=== PATIENT | male | born 1950 | race Caucasian/White ===

== ENCOUNTER 2021-02-10 18:46 | Inpatient (IN) | payer MEDICARE ==
[~2021-02-10] VITALS: Ht 180.3 cm; Wt 93.5 kg
[~2021-02-10 18:46] MED LIST: atropine 0.1mg/ml 10ml syringe ONE; etomidate 2mg/ml inj. ONE; rocuronium 10mg/ml inj IV ONE; sod chloride 0.9% 10ml flush syringe IV ONE
[2021-02-10] MEDS ORDERED: dexamethasone sod phosphate 10mg/ml inj IV STA (19:12)
[2021-02-10] MEDS ORDERED: dexamethasone 6 MG in NS 50ml IV soln IV ONE (19:25)
[2021-02-10 19:52] LABS: BASOPHILS # (AUTO) 0.1 X10'3 (0-0.2); BASOPHILS % (AUTO) 1.8 % (0-1); EOSINOPHILS % (AUTO) 0 % (0-6); HEMATOCRIT 40.4 % (42.0-52.0); HEMOGLOBIN 13.6 g/dl (14.0-17.9); LYMPHOCYTES # (AUTO) 0.3 X10'3 (1.1-4.8); LYMPHOCYTES % (AUTO) 8.1 % (21-51); MEAN CORPUSCULAR HEMOGLOBIN 27.5 PG (27.0-31.0); MEAN CORPUSCULAR HGB CONC 33.6 g/dL (33.0-36.5); MEAN CORPUSCULAR VOLUME 81.8 FL (78-98); MEAN PLATELET VOLUME 7.7 FL (7.4-10.4); MONOCYTES # (AUTO) 0.3 X10'3 (0-0.9); MONOCYTES % (AUTO) 6.1 % (2-12); NEUTROPHILS # (AUTO) 3.5 X10'3 (1.8-7.7); PLATELET COUNT 160 X10'3 (140-440); RED BLOOD COUNT 4.94 X10'6 (4.70-6.10); RED CELL DISTRIBUTION WIDTH 14.8 % (11.5-14.5); WHITE BLOOD COUNT 4.2 X10'3 (4.5-11.0)
--- NOTE | 2021-02-10 20:00 | NUR ---
Pt lying on stretcher with no complaints voiced or reported. remains at bedside.
[2021-02-10 20:09] LABS: ALANINE AMINOTRANSFERASE 47 U/L (12-78); ALBUMIN 2.8 G/DL (3.4-5.0); ALBUMIN/GLOBULIN RATIO 0.8 (1.1-1.5); ALKALINE PHOSPHATASE 63 IU/L (46-116); ANION GAP 8 (8-16); ASPARTATE AMINO TRANSFERASE 65 U/L (10-37); BILIRUBIN,TOTAL 0.4 MG/DL (0.1-1.0); BLOOD UREA NITROGEN 14 MG/DL (7-18); BUN/CREATININE RATIO 15.2 (5.4-32.0); CHLORIDE 92 MMOL/L (99-107); CREATININE 0.92 MG/DL (0.60-1.10); GLUCOSE 135 MG/DL (70-104); POTASSIUM 3.7 MMOL/L (3.5-5.1); SODIUM 127 MMOL/L (135-145); TOTAL CARBON DIOXIDE 26.8 MMOL/L (24-32); TOTAL PROTEIN 6.2 G/DL (6.4-8.2); eGFR 82 ML/MIN
[2021-02-10 20:44] LABS: C-REACTIVE PROTEIN 9.09 MG/DL (0.0-0.5); LACTATE DEHYDROGENASE 516 U/L (85-227)
[2021-02-10 20:47] LABS: FERRITIN 2056 NG/ML (26-388)
[2021-02-10] MEDS ORDERED: temazepam 15mg capsule PO PRN (21:00)
[2021-02-10] MEDS ORDERED: REMDESIVIR INJ 200 MG in normal saline 100ml IV soln 60 ML IV ONE (21:05)
[2021-02-10] MEDS ORDERED: potassium Cl 40MEQ/1/2NS 520ml 520 ML IV PRN ×2 (23:10)
[2021-02-10] MEDS ORDERED: ondansetron/PF 4mg/2ml inj IV PRN (23:10)
[2021-02-10] MEDS ORDERED: acetaminophen 325mg tablet PO PRN ×2 (23:10)
[2021-02-10] MEDS ORDERED: potassium Cl 20 mEq SR tablet PO PRN ×2 (23:10)
[2021-02-10] MEDS ORDERED: morphine 2 MG/ML inj. syringe IV PRN (23:10)
[2021-02-10] MEDS ORDERED: mag hydrox/Alum hydrox/simeth 30ml oral suspension PO PRN (23:10)
[2021-02-10] MEDS ORDERED: HYDROcodone/acetaminophen 5mg/325mg tablet PO PRN (23:10)
[2021-02-10] MEDS ORDERED: magnesium 2GM in 50ml NS 50 ML IV PRN (23:10)
[2021-02-10] MEDS ORDERED: magnesium Cl slow-release 64mg tablet PO PRN (23:10)
[2021-02-10] MEDS ORDERED: magnesium hydroxide 30ml (MOM) UD suspension PO PRN (23:10)
[2021-02-10] MEDS: normal saline 1000ml 1,000 ML IV SCH (23:10)
[2021-02-10] MEDS ORDERED: magnesium 4gm in 100ml NS 100 ML IV PRN (23:10)
[2021-02-10] MEDS ORDERED: iohexol 350MG/ML 100ml bottle IV ONE (23:21)
--- NOTE | 2021-02-11 02:30 | NUR ---
Pt upset about the alarm on his IV pump making noise. Pt then took off all monitor leads, including SaO2 monitor. Pt found to have scooted his bed all the way to the door and had it open, even though he was covid +. Pt placed back in bed and high flow O2 placed back on pt.
--- NOTE | 2021-02-11 05:18 | NUR ---
Pt sleeping with no complaints voiced or reported.
[2021-02-11] MEDS ORDERED: LOSA1TAB41 PO (05:35)
--- NOTE | 2021-02-11 07:00 | NUR ---
pt refused to wear hospital gown. wants to stay in his clothes.
[2021-02-11] MEDS: REMDESIVIR INJ 100 MG in normal saline 100ml IV soln 80 ML IV SCH (07:17)
[2021-02-11] MEDS: K and/or MAG REPLACEMENT MC SCH ×2 (07:18→18:49)
[2021-02-11] MEDS ORDERED: REMDESIVIR INJ 100 MG in normal saline 100ml IV soln 80 ML IV SCH (08:00)
[2021-02-11] MEDS ORDERED: heparin, porcine 5000 units/ml vial SQ SCH (08:00)
[2021-02-11] MEDS ORDERED: dexamethasone 4mg/ml inj IM SCH (08:00)
[2021-02-11] MEDS ORDERED: CefTRIAXone 2gm/D5W 50ml BAG 50 ML IV SCH (08:00)
[2021-02-11 08:55] LABS: BASOPHILS % (AUTO) 0.2 % (0-1); EOSINOPHILS % (AUTO) 0 % (0-6); HEMATOCRIT 42.3 % (42.0-52.0); HEMOGLOBIN 14.2 g/dl (14.0-17.9); LYMPHOCYTES # (AUTO) 0.5 X10'3 (1.1-4.8); LYMPHOCYTES % (AUTO) 12.2 % (21-51); MEAN CORPUSCULAR HEMOGLOBIN 27.1 PG (27.0-31.0); MEAN CORPUSCULAR HGB CONC 33.6 g/dL (33.0-36.5); MEAN CORPUSCULAR VOLUME 80.6 FL (78-98); MEAN PLATELET VOLUME 7.8 FL (7.4-10.4); MONOCYTES # (AUTO) 0.4 X10'3 (0-0.9); MONOCYTES % (AUTO) 10.1 % (2-12); NEUTROPHILS # (AUTO) 3.2 X10'3 (1.8-7.7); NEUTROPHILS % (AUTO) 77.5 % (42-75); PLATELET COUNT 172 X10'3 (140-440); RED BLOOD COUNT 5.24 X10'6 (4.70-6.10); RED CELL DISTRIBUTION WIDTH 14.5 % (11.5-14.5); WHITE BLOOD COUNT 4.1 X10'3 (4.5-11.0)
[2021-02-11 08:56] LABS: ALBUMIN 2.8 G/DL (3.4-5.0); ANION GAP 7 (8-16); BLOOD UREA NITROGEN 13 MG/DL (7-18); BUN/CREATININE RATIO 16.3 (5.4-32.0); CALCIUM 7.3 MG/DL (8.5-10.1); CHLORIDE 92 MMOL/L (99-107); GLUCOSE 121 MG/DL (70-104); POTASSIUM 3.8 MMOL/L (3.5-5.1); SODIUM 129 MMOL/L (135-145); TOTAL CARBON DIOXIDE 29.7 MMOL/L (24-32); eGFR > 90 ML/MIN
[2021-02-11] MEDS: enoxaparin 40mg/0.4ml syringe SUBCUT SCH ×2 (09:35→20:11)
[2021-02-11] MEDS: dexamethasone inj 6 MG in normal saline 50ml IV soln 50 ML IV SCH ×2 (09:35→20:11)
--- NOTE | 2021-02-11 10:02 | NUR ---
pt placed on hospital bed. spo2 dropped to 70 during transfer. educated about breathing and increased to 88% over 5 min.
--- NOTE | 2021-02-11 12:41 | NUR ---
attempted to call report. no answer. ed charge notified.
--- NOTE | 2021-02-11 12:55 | NUR ---
attempted to call report, rn unable to get report will call back.
[2021-02-11 14:00] VITALS: BP 144/83
--- NOTE | 2021-02-11 14:53 | NUR ---
Patient's O2 sat dropped as low as 78% on high flow nasal cannula @ 15lpm plus the non-rebreather mask on top of it. Charge nurse Barrie aware of this. Patient was urinating and pulled his pants out when the O2 sat started dropping. RT was notified. RT encouraged patient to do deep breathing. Instructed patient to rest to minimize shortness of breath.
--- NOTE | 2021-02-11 14:57 | NUR ---
Unable to dart, nasal swab, or skin check patient since he got to his room due to shortness of breath
[2021-02-11 15:00] VITALS: BP 146/85
--- NOTE | 2021-02-11 15:01 | NUR ---
Paged Dr. Zhou PAGER ID: [phone] MESSAGE: Covid Unit Kira DICK ext [phone]. RE: Jonathon Rae. Patient O2 sat kept dropping to <80% even on minimal exertion. He is currently @ 15lpm high flow + non-rebreather. RT requesting order for BIPAP as he keep dropping O2 sat.
--- NOTE | 2021-02-11 17:53 | NUR ---
Paged Dr. Zhou PAGER ID: [phone] MESSAGE: Marni Malone RN ext [phone]. RE: Jonathon Rae. Can we get order for Ativan IV for this patient. He's been anxious with the BIPAP/CPAP machine and he is not ready to be off machine yet.
[2021-02-11] MEDS ORDERED: LORazepam 2 mg/ml vial IV PRN (17:55)
[2021-02-11 18:00] VITALS: BP 146/85
[2021-02-11 18:00] LABS: ABG BASE EXCESS 1.3 mmol/L (-2.0-2.0); ABG HCO3 24.5 mmol/L (22.0-26.0); ABG OXYGEN SATURATION 94.9 % (94-97); ABG PCO2 (T) 34.6 mmHg (35.0-48.0); ABG PO2 (T) 70.4 mmHg (75.0-100.0); ALLEN'S TEST POSITIVE; FCOHb 0.2 % (0.0-3.9); FMetHb 0.1 % (0.0-1.5); FO2Hb 94.6 % (94-97); RESPIRATORY RATE 16 b/min; TIDAL VOLUME 645 mL; TOTAL HEMOGLOBIN 14.8 G/dl (14.0-18.0)
--- NOTE | 2021-02-11 18:00 | NUR ---
Patient in room COVID 02. I have received report from eddie mendoza and had the opportunity to ask questions and assume patient care.
--- NOTE | 2021-02-11 18:06 | NUR ---
Patient refusing Ativan at this time. I explained to him it will help him relax also might help with breathing better. Patient wanted to be off from BIPAP while eating, patient was advised not to be off BIPAP?CPAP machine at this time until his O2 sat is more stable. Per RT, patient not ready to be off BIPAP yet at this time
--- NOTE | 2021-02-11 18:34 | NUR ---
Problems reprioritized. Patient report given, questions answered & plan of care reviewed with Valentina DICK.
[2021-02-12 02:00] VITALS: BP 156/81
--- NOTE | 2021-02-12 03:06 | NUR ---
lab reports blood cultures came back pos. for grampos rods aerobic at IV start. MD Yap notified. no new orders at the time. patient is not currently taking abx at the time. states that she will investigate and call kat
[2021-02-12] MEDS ORDERED: levoFLOXACIN-Levaquin 500mg/D5 100 ML IV ONE (03:40)
[2021-02-12 07:00] VITALS: BP 136/79
--- NOTE | 2021-02-12 07:03 | NUR ---
Patient in room COVID 02. I have received report from MAYELIN PACHECO, and had the opportunity to ask questions and assume patient care.
[2021-02-12] MEDS: K and/or MAG REPLACEMENT MC SCH ×2 (08:00→20:00)
[2021-02-12 08:28] LABS: BASOPHILS % (AUTO) 0.1 % (0-1); EOSINOPHILS % (AUTO) 0 % (0-6); HEMATOCRIT 41.5 % (42.0-52.0); HEMOGLOBIN 13.8 g/dl (14.0-17.9); LYMPHOCYTES # (AUTO) 0.7 X10'3 (1.1-4.8); LYMPHOCYTES % (AUTO) 12.4 % (21-51); MEAN CORPUSCULAR HEMOGLOBIN 27.4 PG (27.0-31.0); MEAN CORPUSCULAR HGB CONC 33.2 g/dL (33.0-36.5); MEAN CORPUSCULAR VOLUME 82.5 FL (78-98); MEAN PLATELET VOLUME 7.8 FL (7.4-10.4); MONOCYTES # (AUTO) 0.7 X10'3 (0-0.9); MONOCYTES % (AUTO) 12.1 % (2-12); NEUTROPHILS # (AUTO) 4.3 X10'3 (1.8-7.7); NEUTROPHILS % (AUTO) 75.4 % (42-75); PLATELET COUNT 204 X10'3 (140-440); RED BLOOD COUNT 5.04 X10'6 (4.70-6.10); RED CELL DISTRIBUTION WIDTH 14.7 % (11.5-14.5); WHITE BLOOD COUNT 5.7 X10'3 (4.5-11.0)
[2021-02-12 09:33] LABS: ALBUMIN 2.6 G/DL (3.4-5.0); ANION GAP 8 (8-16); BLOOD UREA NITROGEN 21 MG/DL (7-18); BUN/CREATININE RATIO 24.7 (5.4-32.0); CALCIUM 7.5 MG/DL (8.5-10.1); CHLORIDE 98 MMOL/L (99-107); CREATININE 0.85 MG/DL (0.60-1.10); GLUCOSE 137 MG/DL (70-104); MAGNESIUM 2.4 MG/DL (1.5-2.4); POTASSIUM 4.1 MMOL/L (3.5-5.1); SODIUM 134 MMOL/L (135-145); TOTAL CARBON DIOXIDE 28.3 MMOL/L (24-32); eGFR 90 ML/MIN
[2021-02-12 09:39] LABS: C-REACTIVE PROTEIN 6.68 MG/DL (0.0-0.5)
[2021-02-12] MEDS: dexamethasone inj 6 MG in normal saline 50ml IV soln 50 ML IV SCH (09:44)
[2021-02-12] MEDS: REMDESIVIR INJ 100 MG in normal saline 100ml IV soln 80 ML IV SCH (09:45)
[2021-02-12] MEDS: enoxaparin 40mg/0.4ml syringe SUBCUT SCH ×2 (09:45→19:43)
[2021-02-12 11:00] VITALS: BP 142/83
[2021-02-12 15:00] VITALS: BP 132/79
[2021-02-12] MEDS: methylPREDNISolone sod succ/PF 40mg inj. IV SCH (16:16)
[2021-02-12 18:00] VITALS: BP 163/88
--- NOTE | 2021-02-12 18:00 | NUR ---
Patient in room COVID 02. I have received report from ronni mendoza and had the opportunity to ask questions and assume patient care.
--- NOTE | 2021-02-12 18:30 | NUR ---
Problems reprioritized. Patient report given, questions answered & plan of care reviewed with MAYELIN PACHECO.
[2021-02-12 22:00] VITALS: BP 160/87
[2021-02-12] MEDS: normal saline 1000ml 1,000 ML IV SCH (23:40)
[2021-02-13] VITALS (14 sets, daily range): BP systolic 111–169; BP diastolic 67–98
[2021-02-13] MEDS: methylPREDNISolone sod succ/PF 40mg inj. IV SCH ×4 (00:57→23:42)
--- NOTE | 2021-02-13 06:47 | NUR ---
Patient in room COVID 02. I have received report from Nanette Neal and had the opportunity to ask questions and assume patient care.
--- NOTE | 2021-02-13 07:17 | NUR ---
MD Zhou PAGER ID: [phone] MESSAGE: Ever DICK Covid unit. ext [phone] pt [facility] room 2B. On Bipap 100% fio2. Sat's drop to 90% with mask on if patient speaks
[2021-02-13] MEDS: REMDESIVIR INJ 100 MG in normal saline 100ml IV soln 80 ML IV SCH (07:42)
[2021-02-13] MEDS: enoxaparin 40mg/0.4ml syringe SUBCUT SCH ×2 (07:42→19:35)
[2021-02-13] MEDS: K and/or MAG REPLACEMENT MC SCH ×2 (08:00→20:00)
[2021-02-13 08:16] LABS: BASOPHILS % (AUTO) 0.1 % (0-1); EOSINOPHILS % (AUTO) 0 % (0-6); HEMATOCRIT 41.9 % (42.0-52.0); HEMOGLOBIN 13.9 g/dl (14.0-17.9); LYMPHOCYTES # (AUTO) 0.4 X10'3 (1.1-4.8); LYMPHOCYTES % (AUTO) 5.1 % (21-51); MEAN CORPUSCULAR HEMOGLOBIN 27.1 PG (27.0-31.0); MEAN CORPUSCULAR HGB CONC 33.2 g/dL (33.0-36.5); MEAN CORPUSCULAR VOLUME 81.5 FL (78-98); MEAN PLATELET VOLUME 7.5 FL (7.4-10.4); MONOCYTES # (AUTO) 0.9 X10'3 (0-0.9); MONOCYTES % (AUTO) 10.9 % (2-12); NEUTROPHILS # (AUTO) 7.1 X10'3 (1.8-7.7); NEUTROPHILS % (AUTO) 83.9 % (42-75); PLATELET COUNT 284 X10'3 (140-440); RED BLOOD COUNT 5.14 X10'6 (4.70-6.10); RED CELL DISTRIBUTION WIDTH 14.7 % (11.5-14.5); WHITE BLOOD COUNT 8.5 X10'3 (4.5-11.0)
[2021-02-13 08:18] LABS: D-DIMER 0.72 MG/L FEU (0-0.50)
[2021-02-13 08:23] LABS: ALBUMIN 2.6 G/DL (3.4-5.0); ANION GAP 6 (8-16); BLOOD UREA NITROGEN 22 MG/DL (7-18); BUN/CREATININE RATIO 25.9 (5.4-32.0); C-REACTIVE PROTEIN 3.45 MG/DL (0.0-0.5); CALCIUM 7.3 MG/DL (8.5-10.1); CHLORIDE 102 MMOL/L (99-107); CREATININE 0.85 MG/DL (0.60-1.10); GLUCOSE 163 MG/DL (70-104); MAGNESIUM 2.7 MG/DL (1.5-2.4); POTASSIUM 4.4 MMOL/L (3.5-5.1); SODIUM 137 MMOL/L (135-145); TOTAL CARBON DIOXIDE 29.1 MMOL/L (24-32); eGFR 90 ML/MIN
--- NOTE | 2021-02-13 12:17 | NUR ---
Rt notified this jingle writer pt developing chest edema, and decrepitus. MD Zhou on floor at this time examined patient. Verbal order for stat CXR 2 view given and to transfer patient to ICU. Charge notified. brake repair supervisor notified.
--- NOTE | 2021-02-13 12:49 | NUR ---
AGER ID: [phone] MESSAGE: COVID 2B will be transferred to 2005. Thank you. Lottie [phone]
--- NOTE | 2021-02-13 12:54 | NUR ---
Problems reprioritized. Patient report given, questions answered & plan of care reviewed with Lakisha Neal.
--- NOTE | 2021-02-13 13:33 | NUR ---
Pt family called and updated per pt request. Taz alonsoer.
[2021-02-13] MEDS ORDERED: magnesium hydroxide 30ml (MOM) UD suspension PO PRN (13:55)
[2021-02-13] MEDS ORDERED: albuterol 2.5 MG/3 ML nebule NEB PRN (13:55)
[2021-02-13] MEDS ORDERED: ondansetron/PF 4mg/2ml inj IV PRN (13:55)
[2021-02-13] MEDS ORDERED: acetaminophen 325mg tablet PO PRN ×2 (13:55)
[2021-02-13] MEDS ORDERED: LIDOcaine 2% 10ml TOPICAL JELLY (Urojet) TP ONE (13:55)
[2021-02-13] MEDS ORDERED: morphine 2 MG/ML inj. syringe IV PRN (13:55)
[2021-02-13] MEDS ORDERED: morphine 4 MG/ML inj SYRINge IV PRN (13:55)
--- NOTE | 2021-02-13 14:24 | NUR ---
Took phone call from Nakia Longoria who stated pt. has 1cm pneumothorax at mediastinum as well as subcutaneous air on CXR. Results called to Dr. Belle who stated he was aware and to keep CT set up near room.
[2021-02-13] MEDS: normal saline 1000ml 1,000 ML IV SCH ×2 (14:28→19:35)
[2021-02-13 14:46] LABS: D-DIMER 0.98 MG/L FEU (0-0.50)
[2021-02-13 15:37] LABS: ABG BASE EXCESS 2.5 mmol/L (-2.0-2.0); ABG HCO3 26.5 mmol/L (22.0-26.0); ABG OXYGEN SATURATION 98.8 % (94-97); ABG PCO2 (T) 38.9 mmHg (35.0-48.0); ABG PO2 (T) 151.8 mmHg (75.0-100.0); ALLEN'S TEST POSITIVE; FCOHb 0.3 % (0.0-3.9); FMetHb 0.4 % (0.0-1.5); FO2Hb 98.1 % (94-97); RESPIRATORY RATE 16 b/min; TOTAL HEMOGLOBIN 14.7 G/dl (14.0-18.0)
[2021-02-13] MEDS: dexmedetomidin/NS 400mcg/100ml 100 ML IV SCH ×2 (16:31→22:07)
--- NOTE | 2021-02-13 17:00 | NUR ---
Received patient from the COVID unit. Patient on BiPAP at 95% FiO2. Pressure support decreased from 20 to 15. Resp rate in 40's. Breath sounds diminished bilat. Large amount of crepitus in upper chest. Patient states he is really tired. Initial CXR showed 1 cm pneumothorax. Repeat CXR @ 1700 showed pneumo had decreased to a trace. Patient given Morphine for chest pain and air hunger. Started on Precedex for anxiety. Patient assisted into prone position with sats immediately increasing into 90's. Able to wean FiO2 to 70%.
--- NOTE | 2021-02-13 18:26 | NUR ---
Problems reprioritized. Patient report given, questions answered & plan of care reviewed with Laila DICK.
--- NOTE | 2021-02-13 18:30 | NUR ---
Patient in room CICU 2005. I have received report from MAYELIN Banuelos and had the opportunity to ask questions and assume patient care. Patient is laying on right side sleeping comfortably, Bipap is in use and I will continue to monitor.
[2021-02-14] VITALS (24 sets, daily range): BP systolic 114–171; BP diastolic 44–89
[2021-02-14] MEDS: normal saline 1000ml 1,000 ML IV SCH (04:18)
[2021-02-14 06:15] LABS: BASOPHILS % (AUTO) 0.1 % (0-1); EOSINOPHILS % (AUTO) 0 % (0-6); HEMOGLOBIN 14.2 g/dl (14.0-17.9); LYMPHOCYTES # (AUTO) 0.4 X10'3 (1.1-4.8); MEAN CORPUSCULAR HEMOGLOBIN 27.1 PG (27.0-31.0); MEAN CORPUSCULAR VOLUME 82.1 FL (78-98); MEAN PLATELET VOLUME 7.4 FL (7.4-10.4); MONOCYTES # (AUTO) 1.1 X10'3 (0-0.9); MONOCYTES % (AUTO) 8.3 % (2-12); NEUTROPHILS # (AUTO) 11.6 X10'3 (1.8-7.7); NEUTROPHILS % (AUTO) 88.6 % (42-75); PLATELET COUNT 260 X10'3 (140-440); RED BLOOD COUNT 5.24 X10'6 (4.70-6.10); RED CELL DISTRIBUTION WIDTH 14.9 % (11.5-14.5)
--- NOTE | 2021-02-14 06:15 | NUR ---
Patient in room CICU 2006. I have received report from Laila DICK and had the opportunity to ask questions and assume patient care.
--- NOTE | 2021-02-14 06:21 | NUR ---
Problems reprioritized. Patient report given, questions answered & plan of care reviewed with Tina/MAYELIN Hernandez.
[2021-02-14 06:26] LABS: ALANINE AMINOTRANSFERASE 178 U/L (12-78); ALBUMIN 2.6 G/DL (3.4-5.0); ALBUMIN/GLOBULIN RATIO 0.8 (1.1-1.5); ALKALINE PHOSPHATASE 126 IU/L (46-116); ANION GAP 6 (8-16); ASPARTATE AMINO TRANSFERASE 111 U/L (10-37); BLOOD UREA NITROGEN 22 MG/DL (7-18); BUN/CREATININE RATIO 28.9 (5.4-32.0); C-REACTIVE PROTEIN 2.36 MG/DL (0.0-0.5); CALCIUM 7.2 MG/DL (8.5-10.1); CHLORIDE 107 MMOL/L (99-107); CREATININE 0.76 MG/DL (0.60-1.10); GLUCOSE 171 MG/DL (70-104); MAGNESIUM 3.1 MG/DL (1.5-2.4); POTASSIUM 4.7 MMOL/L (3.5-5.1); SODIUM 140 MMOL/L (135-145); TOTAL PROTEIN 5.8 G/DL (6.4-8.2); eGFR > 90 ML/MIN
[2021-02-14 06:28] LABS: D-DIMER 7.09 MG/L FEU (0-0.50); PARTIAL THROMBOPLASTIN TIME 26 SECONDS (22-32)
[2021-02-14] MEDS: K and/or MAG REPLACEMENT MC SCH ×2 (06:56→20:00)
[2021-02-14] MEDS: REMDESIVIR INJ 100 MG in normal saline 100ml IV soln 80 ML IV SCH (07:44)
[2021-02-14] MEDS: methylPREDNISolone sod succ/PF 40mg inj. IV SCH ×3 (07:45→23:42)
[2021-02-14] MEDS: enoxaparin 40mg/0.4ml syringe SUBCUT SCH (07:45)
--- NOTE | 2021-02-14 09:15 | NUR ---
Fam Call called, update provided. She asked me to tell him to mind his Ps & Qs and that she loved him. Message delivered.
--- NOTE | 2021-02-14 10:32 | NUR ---
Resp Status: Cxray taken around 0900 & pt moved up in bed. He desats to low 80s on 100% FiO2 and takes 5-10 mins to recover back to mid 90s. 0945 pt complained of abd pain at upper lt quad. Repositioned and pain abated. Precedex restarted with increased agitation. Sats improved once pt settles. 1015 requested to reposition to Lt side with same desat issue and slow improvement.
[2021-02-14] MEDS: pantoprazole 40 MG vial IV SCH (10:47)
[2021-02-14] MEDS ORDERED: sodium phosphate inj. 30 MMOL in dextrose 5%-water 250 ML IV PRN (10:50)
[2021-02-14] MEDS ORDERED: magnesium 4gm in 100ml NS 100 ML IV PRN (10:50)
[2021-02-14] MEDS ORDERED: sodium phosphate inj. 15 MMOL in dextrose 5%-water 250 ML IV PRN (10:50)
[2021-02-14] MEDS ORDERED: magnesium Cl slow-release 64mg tablet PO PRN (10:50)
[2021-02-14] MEDS ORDERED: bisacodyl 10mg suppository rectal RC ONE (10:50)
[2021-02-14] MEDS ORDERED: Neutra Phos packet PO PRN (10:50)
[2021-02-14] MEDS ORDERED: potassium Cl 40MEQ/1/2NS 520ml 520 ML IV PRN ×2 (10:50)
[2021-02-14] MEDS ORDERED: magnesium 2GM in 50ml NS 50 ML IV PRN (10:50)
[2021-02-14] MEDS ORDERED: potassium Cl 20 mEq SR tablet PO PRN ×2 (10:50)
--- NOTE | 2021-02-14 11:17 | NUR ---
TPN Consult: Pt admit DX COVID-19 PNA, L pneumothorax, and subcutaneous emphysema currently NPO bipap dependent w/ TPN to start today per dental chair assembler. TPN recs below given pt needs; pending central access line placement at this time. Pt no BM since admit at least 4 days w/ bowel care via rectum to start today per dental chair assembler. Will monitor for PN tolerance and adjustment needs as medically indicated. Rec: 1. TPN via central access per MD using 2:1 Clinimix E 5/15 at 105ml/hr goal w/ separate 250ml 20% intralipids to run for 12 hours daily at 20.83ml/hr. In total; to provide 2520ml volume, 126g AA, 378g DEX (2.92mg/kg/min), 50g lipids, and 2319 total kcals. Initiate at 30ml/hr and if tolerated Q12H advance to goal. 2. PALB/TG Q /; daily wts 3. monitor for PN tolerance, signs of refeeding, and PN adjustment needs 4. IF respiratory status improves consider EN to meet nutrition needs given recent poor PO hx prior to NPO status 5. IF PO diet advances; advance as medically indicated to regular Addendum: 02/14/21 at [address] Amended: Links added.
[2021-02-14 11:24] LABS: TRIGLYCERIDES 111 MG/DL (20-135)
[2021-02-14] MEDS: dexmedetomidin/NS 400mcg/100ml 100 ML IV SCH (13:06)
[2021-02-14] MEDS ORDERED: Dextrose 10%-water IV solution 1,000 ML IV PRN (13:35)
[2021-02-14] MEDS ORDERED: MVI, adult No.4 with vit. K 5 ML, ZINC/COPPER/MANGANESE/SELENIUM 0.5 ML, chromic chlori... IV SCH ×4 (16:00)
--- NOTE | 2021-02-14 17:50 | NUR ---
Shift Note Pleasant pt who tolerates BiPAP well. better turned to his Lt than Right. BM x 2 today post suppository. PICC line completed about 1730. Still awaiting TPN, pharm aware. Pt able to move about in bed w/out assistance.
--- NOTE | 2021-02-14 18:16 | NUR ---
Problems reprioritized. Patient report given, questions answered & plan of care reviewed with Laila DICK.
--- NOTE | 2021-02-14 18:17 | NUR ---
Patient in room CICU 2005. I have received report from David/MAYELIN Wilder and had the opportunity to ask questions and assume patient care. Patient still on Bipap 95%, he resting comfortably and laying on left side.
[2021-02-14] MEDS: enoxaparin 80mg/0.8ml syringe SUBCUT SCH (19:29)
[2021-02-14] MEDS ORDERED: fat emulsion IV bag 250 ML IV SCH (20:00)
[2021-02-14] MEDS ORDERED: lactobacillus rhamnosus 10,000 MMU CELLS/CAPSULE PO SCH (20:00)
[2021-02-15] VITALS (24 sets, daily range): BP systolic 110–202; BP diastolic 54–107
[2021-02-15] MEDS: dexmedetomidin/NS 400mcg/100ml 100 ML IV SCH (00:06)
[2021-02-15 05:55] LABS: BASOPHILS % (AUTO) 0.1 % (0-1); EOSINOPHILS % (AUTO) 0.1 % (0-6); HEMATOCRIT 41.8 % (42.0-52.0); HEMOGLOBIN 13.4 g/dl (14.0-17.9); LYMPHOCYTES # (AUTO) 0.2 X10'3 (1.1-4.8); LYMPHOCYTES % (AUTO) 1.3 % (21-51); MEAN CORPUSCULAR HEMOGLOBIN 26.7 PG (27.0-31.0); MEAN CORPUSCULAR VOLUME 83.3 FL (78-98); MEAN PLATELET VOLUME 7.7 FL (7.4-10.4); MONOCYTES % (AUTO) 5.6 % (2-12); NEUTROPHILS # (AUTO) 16.7 X10'3 (1.8-7.7); NEUTROPHILS % (AUTO) 92.9 % (42-75); PLATELET COUNT 205 X10'3 (140-440); RED BLOOD COUNT 5.02 X10'6 (4.70-6.10); RED CELL DISTRIBUTION WIDTH 15.3 % (11.5-14.5); WHITE BLOOD COUNT 17.9 X10'3 (4.5-11.0)
[2021-02-15 06:10] LABS: D-DIMER 20.02 MG/L FEU (0-0.50); PARTIAL THROMBOPLASTIN TIME 28 SECONDS (22-32)
--- NOTE | 2021-02-15 06:11 | NUR ---
Problems reprioritized. Patient report given, questions answered & plan of care reviewed with Tina/MAYELIN Hernandez.
[2021-02-15 06:12] LABS: ALANINE AMINOTRANSFERASE 167 U/L (12-78); ALBUMIN 2.4 G/DL (3.4-5.0); ALBUMIN/GLOBULIN RATIO 0.8 (1.1-1.5); ALKALINE PHOSPHATASE 177 IU/L (46-116); ANION GAP 6 (8-16); ASPARTATE AMINO TRANSFERASE 79 U/L (10-37); BILIRUBIN,TOTAL 0.9 MG/DL (0.1-1.0); BLOOD UREA NITROGEN 21 MG/DL (7-18); BUN/CREATININE RATIO 24.7 (5.4-32.0); C-REACTIVE PROTEIN 4.93 MG/DL (0.0-0.5); CALCIUM 6.8 MG/DL (8.5-10.1); CHLORIDE 111 MMOL/L (99-107); CREATININE 0.85 MG/DL (0.60-1.10); GLUCOSE 179 MG/DL (70-104); MAGNESIUM 2.9 MG/DL (1.5-2.4); PHOSPHORUS 2.2 MG/DL (2.3-4.5); POTASSIUM 4.5 MMOL/L (3.5-5.1); SODIUM 145 MMOL/L (135-145); TOTAL CARBON DIOXIDE 27.7 MMOL/L (24-32); TOTAL PROTEIN 5.4 G/DL (6.4-8.2); eGFR 90 ML/MIN
[2021-02-15 07:10] LABS: ABG BASE EXCESS 1.6 mmol/L (-2.0-2.0); ABG HCO3 27.2 mmol/L (22.0-26.0); ABG OXYGEN SATURATION 97.8 % (94-97); ABG PCO2 (T) 47.1 mmHg (35.0-48.0); ABG PO2 (T) 111.5 mmHg (75.0-100.0); ALLEN'S TEST POSITIVE; FCOHb 0.1 % (0.0-3.9); FMetHb 0.3 % (0.0-1.5); FO2Hb 97.4 % (94-97); PATIENT TEMPERATURE 37.3; RESPIRATORY RATE 16 b/min; TIDAL VOLUME 1047 mL; TOTAL HEMOGLOBIN 13.9 G/dl (14.0-18.0)
[2021-02-15] MEDS: K and/or MAG REPLACEMENT MC SCH ×2 (08:00→20:00)
[2021-02-15] MEDS: methylPREDNISolone sod succ/PF 40mg inj. IV SCH ×2 (08:09→16:13)
[2021-02-15] MEDS: enoxaparin 80mg/0.8ml syringe SUBCUT SCH ×2 (08:09→20:31)
[2021-02-15] MEDS: pantoprazole 40 MG vial IV SCH (08:09)
[2021-02-15] MEDS ORDERED: ipratropium 0.5 MG/2.5ML nebule IH PRN (09:00)
[2021-02-15] MEDS ORDERED: HYDROmorphone 1 mg/ml syringe SQ ONE (10:00)
[2021-02-15] MEDS ORDERED: HYDROmorphone 1 mg/ml syringe IV ONE (10:03)
[2021-02-15] MEDS ORDERED: fentaNYL/PF 50MCG/1 ML 2ML syringe IV ONE (10:15)
[2021-02-15] MEDS ORDERED: midazolam 1 mg/ML 2ml injection ONE (10:43)
[2021-02-15] MEDS: propofol 1000mg/100ml bottle 100 ML IV SCH ×2 (10:55→16:50)
[2021-02-15 11:15] LABS: ABG BASE EXCESS -2.9 mmol/L (-2.0-2.0); ABG HCO3 25.1 mmol/L (22.0-26.0); ABG OXYGEN SATURATION 96.8 % (94-97); ABG PCO2 (T) 58.1 mmHg (35.0-48.0); ABG PO2 (T) 104.3 mmHg (75.0-100.0); ALLEN'S TEST POSITIVE; FCOHb 0.1 % (0.0-3.9); FMetHb 0.4 % (0.0-1.5); FO2Hb 96.3 % (94-97); PATIENT TEMPERATURE 37.3; PEEP 18 cm H2O; RESPIRATORY RATE 20 b/min; TIDAL VOLUME 425 mL; TOTAL HEMOGLOBIN 14.4 G/dl (14.0-18.0)
[2021-02-15 11:26] LABS: TRIGLYCERIDES 111 MG/DL (20-135)
--- NOTE | 2021-02-15 12:08 | NUR ---
CT & Intubation: Around 944 Dr. Belle said pt need Rt chest tube for pneumo. Explained procedure to pt and he signed the consent. CT placed but and pt couldn't recover O2 sats. remained >85. Pt was subsequently intubated. Post procedure I spoke to pts with update including chest tube & intubation. thanked me for the update. Stated she had no power and generator was running an in-room air purifier. She was SOB on the phone and I advise her to contact an ambulance. She stated she'd wait until her MD office called her back.
[2021-02-15] MEDS: mineral oil/petrolatum ophthal oint EACHEYE SCH ×3 (12:42→20:31)
--- NOTE | 2021-02-15 12:53 | NUR ---
TF consult: Per MD note pt with a small stable left pneumothorax and a right pneumothorax, right chest tube put in place today. Pt couldn't recover O2 sats and was subsequently intubated per glassware verifier. Noted TPN has already been discontinued, see TF recommendations below. [place] 02/14. Will continue to follow closely. Rec: 1. Continuous TF using Vital AF with goal rate of 85 mL/hr to provide 2040 mL total volume/day, 2448 kcal, 153 g protein, and 1654 mL water 2. Additional 100 mL water flush Q4H; monitor serum Na 3. Prealbumin q Sunday/; daily scaled weights 4. Monitor Propofol rate and adjust TF goal rate as appropriate 5. Routine bowel care Addendum: 02/15/21 at [address] Amended: Links added.
[2021-02-15] MEDS: DOPamine 400mg/D5W 250ml 250 ML IV SCH (13:55)
[2021-02-15] MEDS ORDERED: DOPamine 400mg/D5W 250ml 250 ML IV ONE (13:59)
[2021-02-15] MEDS: cefepime 2g/NS 100ml ADVANTAGE 100 ML IV SCH (15:30)
[2021-02-15 16:33] LABS: ABG BASE EXCESS 2.5 mmol/L (-2.0-2.0); ABG HCO3 27.4 mmol/L (22.0-26.0); ABG PCO2 (T) 43.8 mmHg (35.0-48.0); ABG PO2 (T) 176.5 mmHg (75.0-100.0); FCOHb 0.3 % (0.0-3.9); FMetHb 0.4 % (0.0-1.5); FO2Hb 98.3 % (94-97); PATIENT TEMPERATURE 37.3; PEEP 17 cm H2O; RESPIRATORY RATE 25 b/min; TIDAL VOLUME 500 mL; TOTAL HEMOGLOBIN 13.3 G/dl (14.0-18.0)
[2021-02-15] MEDS: CISatracurium besylate inj. 100 MG in normal saline 100ml IV soln 90 ML IV PRN ×2 (16:37→21:21)
[2021-02-15] MEDS: FENTANYL-0.9 % NACL/PF 100 ML IV PRN ×2 (16:39→20:32)
[2021-02-15 17:22] LABS: ALANINE AMINOTRANSFERASE 137 U/L (12-78); ALBUMIN 2.1 G/DL (3.4-5.0); ALBUMIN/GLOBULIN RATIO 0.7 (1.1-1.5); ALKALINE PHOSPHATASE 136 IU/L (46-116); ANION GAP 5 (8-16); ASPARTATE AMINO TRANSFERASE 51 U/L (10-37); BILIRUBIN,TOTAL 0.9 MG/DL (0.1-1.0); BLOOD UREA NITROGEN 24 MG/DL (7-18); CALCIUM 6.4 MG/DL (8.5-10.1); CHLORIDE 111 MMOL/L (99-107); CREATININE 0.75 MG/DL (0.60-1.10); GLUCOSE 195 MG/DL (70-104); POTASSIUM 4.7 MMOL/L (3.5-5.1); SODIUM 144 MMOL/L (135-145); TOTAL CARBON DIOXIDE 28.3 MMOL/L (24-32); eGFR > 90 ML/MIN
[2021-02-15 17:23] LABS: BASOPHILS % (AUTO) 0.1 % (0-1); EOSINOPHILS % (AUTO) 0 % (0-6); HEMOGLOBIN 12.4 g/dl (14.0-17.9); LYMPHOCYTES # (AUTO) 0.3 X10'3 (1.1-4.8); LYMPHOCYTES % (AUTO) 1.7 % (21-51); MEAN CORPUSCULAR HGB CONC 32.6 g/dL (33.0-36.5); MEAN CORPUSCULAR VOLUME 82.7 FL (78-98); MEAN PLATELET VOLUME 7.5 FL (7.4-10.4); NEUTROPHILS # (AUTO) 15.8 X10'3 (1.8-7.7); NEUTROPHILS % (AUTO) 92.2 % (42-75); PLATELET COUNT 160 X10'3 (140-440); RED BLOOD COUNT 4.59 X10'6 (4.70-6.10); RED CELL DISTRIBUTION WIDTH 15.1 % (11.5-14.5); WHITE BLOOD COUNT 17.1 X10'3 (4.5-11.0)
--- NOTE | 2021-02-15 18:21 | NUR ---
Problems reprioritized. Patient report given, questions answered & plan of care reviewed with Laila DICK.
--- NOTE | 2021-02-15 18:22 | NUR ---
Patient in room CICU 2005. I have received report from David/MAYELIN Wilder and had the opportunity to ask questions and assume patient care. Patient declined today and was intubated/sedated with right chest tube placed, I will continue to monitor.
[2021-02-15] MEDS ORDERED: insulin Lispro (HumaLOG) vial - multi-dose SQ SCH (20:45)
[2021-02-15] MEDS ORDERED: glucagon, human recombinant 1mg kit SUBCUT PRN (20:45)
[2021-02-15] MEDS ORDERED: dextrose 50%-water 50ml dispensing syringe IV PRN ×2 (20:45)
[2021-02-15] MEDS ORDERED: dextrose ORAL solution 15 GM/59 ML bottle PO PRN ×2 (20:45)
[2021-02-15] MEDS: insulin glargine (Lantus) pen - multi-dose SQ SCH (21:00)
[2021-02-16] VITALS (24 sets, daily range): BP systolic 113–180; BP diastolic 51–91
[2021-02-16] MEDS: methylPREDNISolone sod succ/PF 40mg inj. IV SCH ×3 (00:34→16:13)
[2021-02-16] MEDS: propofol 1000mg/100ml bottle 100 ML IV SCH ×3 (00:34→17:34)
[2021-02-16] MEDS: mineral oil/petrolatum ophthal oint EACHEYE SCH ×4 (02:00→20:56)
[2021-02-16] MEDS: FENTANYL-0.9 % NACL/PF 100 ML IV PRN ×3 (03:01→17:35)
[2021-02-16] MEDS: CISatracurium besylate inj. 100 MG in normal saline 100ml IV soln 90 ML IV PRN ×3 (03:01→16:14)
[2021-02-16 03:32] LABS: ABG BASE EXCESS -0.6 mmol/L (-2.0-2.0); ABG OXYGEN SATURATION 94.4 % (94-97); ABG PCO2 (T) 38.9 mmHg (35.0-48.0); ABG PO2 (T) 69.3 mmHg (75.0-100.0); FCOHb 0.1 % (0.0-3.9); FMetHb 0.1 % (0.0-1.5); FO2Hb 94.2 % (94-97); PATIENT TEMPERATURE 36.6; PEEP 12 cm H2O; RESPIRATORY RATE 25 b/min; TIDAL VOLUME 500 mL; TOTAL HEMOGLOBIN 13.3 G/dl (14.0-18.0)
[2021-02-16] MEDS: vancomycin/NS 1 GM ADD-VANTAGE 250 ML IV SCH ×2 (04:27→14:00)
[2021-02-16 04:41] LABS: BASOPHILS % (AUTO) 0.1 % (0-1); EOSINOPHILS % (AUTO) 0 % (0-6); HEMATOCRIT 38.8 % (42.0-52.0); HEMOGLOBIN 12.6 g/dl (14.0-17.9); LYMPHOCYTES # (AUTO) 0.3 X10'3 (1.1-4.8); LYMPHOCYTES % (AUTO) 2.4 % (21-51); MEAN CORPUSCULAR HEMOGLOBIN 26.9 PG (27.0-31.0); MEAN CORPUSCULAR HGB CONC 32.4 g/dL (33.0-36.5); MEAN CORPUSCULAR VOLUME 82.9 FL (78-98); MEAN PLATELET VOLUME 7.9 FL (7.4-10.4); MONOCYTES # (AUTO) 0.9 X10'3 (0-0.9); NEUTROPHILS # (AUTO) 12.2 X10'3 (1.8-7.7); NEUTROPHILS % (AUTO) 90.5 % (42-75); PLATELET COUNT 161 X10'3 (140-440); RED BLOOD COUNT 4.68 X10'6 (4.70-6.10); RED CELL DISTRIBUTION WIDTH 15.6 % (11.5-14.5); WHITE BLOOD COUNT 13.5 X10'3 (4.5-11.0)
[2021-02-16] MEDS: DOPamine 400mg/D5W 250ml 250 ML IV SCH ×2 (04:44→19:33)
[2021-02-16 04:54] LABS: D-DIMER 16.37 MG/L FEU (0-0.50); PARTIAL THROMBOPLASTIN TIME 30 SECONDS (22-32)
[2021-02-16 05:22] LABS: ALANINE AMINOTRANSFERASE 120 U/L (12-78); ALBUMIN 2.1 G/DL (3.4-5.0); ALBUMIN/GLOBULIN RATIO 0.7 (1.1-1.5); ALKALINE PHOSPHATASE 135 IU/L (46-116); ANION GAP 8 (8-16); ASPARTATE AMINO TRANSFERASE 29 U/L (10-37); BILIRUBIN,TOTAL 0.7 MG/DL (0.1-1.0); BLOOD UREA NITROGEN 25 MG/DL (7-18); BUN/CREATININE RATIO 32.9 (5.4-32.0); C-REACTIVE PROTEIN 6.36 MG/DL (0.0-0.5); CALCIUM 6.6 MG/DL (8.5-10.1); CHLORIDE 113 MMOL/L (99-107); CREATININE 0.76 MG/DL (0.60-1.10); GLUCOSE 178 MG/DL (70-104); MAGNESIUM 3.1 MG/DL (1.5-2.4); PHOSPHORUS 2.2 MG/DL (2.3-4.5); SODIUM 147 MMOL/L (135-145); TOTAL CARBON DIOXIDE 26.2 MMOL/L (24-32); TRIGLYCERIDES 138 MG/DL (20-135); eGFR > 90 ML/MIN
[2021-02-16 05:51] LABS: ABG BASE EXCESS -0.1 mmol/L (-2.0-2.0); ABG HCO3 25.8 mmol/L (22.0-26.0); ABG OXYGEN SATURATION 90.1 % (94-97); ABG PCO2 (T) 46.3 mmHg (35.0-48.0); ABG PO2 (T) 57.4 mmHg (75.0-100.0); FCOHb 0.3 % (0.0-3.9); FMetHb 0.4 % (0.0-1.5); FO2Hb 89.5 % (94-97); PATIENT TEMPERATURE 36.6; PEEP 12 cm H2O; RESPIRATORY RATE 25 b/min; TIDAL VOLUME 450 mL; TOTAL HEMOGLOBIN 13.1 G/dl (14.0-18.0)
--- NOTE | 2021-02-16 06:18 | NUR ---
Problems reprioritized. Patient report given, questions answered & plan of care reviewed with MAYELIN Hernandez.
[2021-02-16] MEDS: pantoprazole 40 MG vial IV SCH (07:54)
[2021-02-16] MEDS: cefepime 2g/NS 100ml ADVANTAGE 100 ML IV SCH ×2 (07:54→20:56)
[2021-02-16] MEDS: enoxaparin 80mg/0.8ml syringe SUBCUT SCH ×2 (07:55→20:57)
[2021-02-16] MEDS: K and/or MAG REPLACEMENT MC SCH ×2 (08:00→20:00)
[2021-02-16] MEDS: insulin regular, human U-100 3ml vial - multi-dose SQ SCH (20:48)
[2021-02-16] MEDS: insulin glargine (Lantus) pen - multi-dose SQ SCH (20:50)
[2021-02-17] VITALS (20 sets, daily range): BP systolic 107–130; BP diastolic 57–67
[2021-02-17] MEDS: propofol 1000mg/100ml bottle 100 ML IV SCH ×5 (02:11→19:48)
[2021-02-17] MEDS: FENTANYL-0.9 % NACL/PF 100 ML IV PRN ×5 (02:12→19:49)
[2021-02-17] MEDS: mineral oil/petrolatum ophthal oint EACHEYE SCH ×4 (02:13→19:49)
[2021-02-17] MEDS: CISatracurium besylate inj. 100 MG in normal saline 100ml IV soln 90 ML IV PRN ×5 (02:13→21:36)
[2021-02-17] MEDS ORDERED: VANCOMYCIN LEVEL IV ONE ×2 (02:30→14:30)
[2021-02-17 03:12] LABS: BASOPHILS % (AUTO) 0.2 % (0-1); EOSINOPHILS % (AUTO) 0 % (0-6); HEMATOCRIT 37.8 % (42.0-52.0); HEMOGLOBIN 11.9 g/dl (14.0-17.9); LYMPHOCYTES # (AUTO) 0.3 X10'3 (1.1-4.8); MEAN CORPUSCULAR HEMOGLOBIN 26.8 PG (27.0-31.0); MEAN CORPUSCULAR HGB CONC 31.6 g/dL (33.0-36.5); MEAN CORPUSCULAR VOLUME 84.9 FL (78-98); MEAN PLATELET VOLUME 8.1 FL (7.4-10.4); MONOCYTES # (AUTO) 0.7 X10'3 (0-0.9); MONOCYTES % (AUTO) 6.5 % (2-12); NEUTROPHILS # (AUTO) 10.3 X10'3 (1.8-7.7); NEUTROPHILS % (AUTO) 90.3 % (42-75); PLATELET COUNT 192 X10'3 (140-440); RED BLOOD COUNT 4.45 X10'6 (4.70-6.10); RED CELL DISTRIBUTION WIDTH 16.2 % (11.5-14.5); WHITE BLOOD COUNT 11.5 X10'3 (4.5-11.0)
[2021-02-17] MEDS: insulin regular, human U-100 3ml vial - multi-dose SQ SCH ×4 (03:22→20:18)
[2021-02-17 03:28] LABS: ALANINE AMINOTRANSFERASE 93 U/L (12-78); ALBUMIN 1.8 G/DL (3.4-5.0); ALBUMIN/GLOBULIN RATIO 0.6 (1.1-1.5); ALKALINE PHOSPHATASE 108 IU/L (46-116); ANION GAP 5 (8-16); ASPARTATE AMINO TRANSFERASE 20 U/L (10-37); BILIRUBIN,TOTAL 0.4 MG/DL (0.1-1.0); BLOOD UREA NITROGEN 31 MG/DL (7-18); BUN/CREATININE RATIO 37.3 (5.4-32.0); C-REACTIVE PROTEIN 3.24 MG/DL (0.0-0.5); CALCIUM 6.8 MG/DL (8.5-10.1); CHLORIDE 115 MMOL/L (99-107); CREATININE 0.83 MG/DL (0.60-1.10); GLUCOSE 155 MG/DL (70-104); MAGNESIUM 3.1 MG/DL (1.5-2.4); PHOSPHORUS 2.4 MG/DL (2.3-4.5); POTASSIUM 5.1 MMOL/L (3.5-5.1); PREALBUMIN 13.2 MG/DL (19-36); SODIUM 147 MMOL/L (135-145); TOTAL CARBON DIOXIDE 27.5 MMOL/L (24-32); TOTAL PROTEIN 4.7 G/DL (6.4-8.2); TRIGLYCERIDES 150 MG/DL (20-135); eGFR > 90 ML/MIN
[2021-02-17] MEDS: vancomycin/NS 1 GM ADD-VANTAGE 250 ML IV SCH (03:32)
[2021-02-17 03:35] LABS: D-DIMER 5.91 MG/L FEU (0-0.50); PARTIAL THROMBOPLASTIN TIME 29 SECONDS (22-32)
[2021-02-17 04:05] LABS: ABG BASE EXCESS -2.5 mmol/L (-2.0-2.0); ABG OXYGEN SATURATION 91.8 % (94-97); ABG PCO2 (T) 48.6 mmHg (35.0-48.0); FCOHb 0.1 % (0.0-3.9); FMetHb 0.2 % (0.0-1.5); FO2Hb 91.5 % (94-97); PATIENT TEMPERATURE 36.9; PEEP 10 cm H2O; RESPIRATORY RATE 25 b/min; TIDAL VOLUME 450 mL; TOTAL HEMOGLOBIN 12.4 G/dl (14.0-18.0)
--- NOTE | 2021-02-17 07:31 | NUR ---
vent found at 100% with peep of +12 per dayshift rn noc shift rn had increased for sat of 89% will titrate back to original settings Addendum: 02/17/21 at 0732 by Leandra Grant RT Amended: Links added.
[2021-02-17] MEDS: K and/or MAG REPLACEMENT MC SCH ×2 (08:00→19:48)
[2021-02-17] MEDS: cefepime 2g/NS 100ml ADVANTAGE 100 ML IV SCH ×2 (08:17→19:46)
[2021-02-17] MEDS: methylPREDNISolone sod succ/PF 40mg inj. IV SCH ×3 (08:17→19:46)
[2021-02-17] MEDS: pantoprazole 40 MG vial IV SCH (08:18)
[2021-02-17] MEDS: enoxaparin 80mg/0.8ml syringe SUBCUT SCH ×2 (08:22→19:47)
[2021-02-17] MEDS: DOPamine 400mg/D5W 250ml 250 ML IV SCH ×2 (10:22→18:47)
[2021-02-17] MEDS: lactobacillus rhamnosus 10,000 MMU CELLS/CAPSULE PO SCH (19:47)
[2021-02-17] MEDS: insulin glargine (Lantus) pen - multi-dose SQ SCH (20:19)
[2021-02-18] VITALS (23 sets, daily range): BP systolic 122–177; BP diastolic 53–77
[2021-02-18] MEDS: mineral oil/petrolatum ophthal oint EACHEYE SCH ×4 (01:22→20:00)
[2021-02-18 02:49] LABS: BASOPHILS % (AUTO) 0.1 % (0-1); EOSINOPHILS % (AUTO) 0 % (0-6); HEMATOCRIT 38.5 % (42.0-52.0); HEMOGLOBIN 12.6 g/dl (14.0-17.9); LYMPHOCYTES # (AUTO) 0.2 X10'3 (1.1-4.8); MEAN CORPUSCULAR HEMOGLOBIN 27.1 PG (27.0-31.0); MEAN CORPUSCULAR HGB CONC 32.6 g/dL (33.0-36.5); MEAN CORPUSCULAR VOLUME 83.2 FL (78-98); MONOCYTES # (AUTO) 0.9 X10'3 (0-0.9); MONOCYTES % (AUTO) 7.7 % (2-12); NEUTROPHILS % (AUTO) 90.2 % (42-75); PLATELET COUNT 240 X10'3 (140-440); RED BLOOD COUNT 4.63 X10'6 (4.70-6.10); RED CELL DISTRIBUTION WIDTH 16.5 % (11.5-14.5); WHITE BLOOD COUNT 12.1 X10'3 (4.5-11.0)
[2021-02-18] MEDS: insulin regular, human U-100 3ml vial - multi-dose SQ SCH ×4 (02:50→21:30)
[2021-02-18 03:11] LABS: ABG BASE EXCESS -1.4 mmol/L (-2.0-2.0); ABG HCO3 26.1 mmol/L (22.0-26.0); ABG OXYGEN SATURATION 94.4 % (94-97); ABG PCO2 (T) 56.7 mmHg (35.0-48.0); ABG PO2 (T) 77.9 mmHg (75.0-100.0); FCOHb 0.2 % (0.0-3.9); FMetHb 0.2 % (0.0-1.5); PATIENT TEMPERATURE 37.4; PEEP 10 cm H2O; RESPIRATORY RATE 25 b/min; TIDAL VOLUME 450 mL; TOTAL HEMOGLOBIN 13.5 G/dl (14.0-18.0)
[2021-02-18 03:22] LABS: D-DIMER 5.67 MG/L FEU (0-0.50); PARTIAL THROMBOPLASTIN TIME 28 SECONDS (22-32)
[2021-02-18 03:29] LABS: ALANINE AMINOTRANSFERASE 121 U/L (12-78); ALBUMIN 1.8 G/DL (3.4-5.0); ALBUMIN/GLOBULIN RATIO 0.5 (1.1-1.5); ALKALINE PHOSPHATASE 129 IU/L (46-116); ANION GAP 4 (8-16); ASPARTATE AMINO TRANSFERASE 70 U/L (10-37); BILIRUBIN,TOTAL 0.5 MG/DL (0.1-1.0); BLOOD UREA NITROGEN 35 MG/DL (7-18); BUN/CREATININE RATIO 40.2 (5.4-32.0); C-REACTIVE PROTEIN 2.47 MG/DL (0.0-0.5); CHLORIDE 115 MMOL/L (99-107); CREATININE 0.87 MG/DL (0.60-1.10); GLUCOSE 153 MG/DL (70-104); MAGNESIUM 3.3 MG/DL (1.5-2.4); PHOSPHORUS 3.4 MG/DL (2.3-4.5); POTASSIUM 5.5 MMOL/L (3.5-5.1); SODIUM 146 MMOL/L (135-145); TOTAL CARBON DIOXIDE 26.6 MMOL/L (24-32); TOTAL PROTEIN 5.1 G/DL (6.4-8.2); eGFR 87 ML/MIN
[2021-02-18] MEDS: propofol 1000mg/100ml bottle 100 ML IV SCH ×5 (03:34→22:28)
[2021-02-18] MEDS: FENTANYL-0.9 % NACL/PF 100 ML IV PRN ×5 (03:35→20:55)
[2021-02-18] MEDS: K and/or MAG REPLACEMENT MC SCH ×2 (08:00→20:00)
[2021-02-18] MEDS: cefepime 2g/NS 100ml ADVANTAGE 100 ML IV SCH ×2 (08:33→20:53)
[2021-02-18] MEDS: methylPREDNISolone sod succ/PF 40mg inj. IV SCH ×2 (08:34→20:53)
[2021-02-18] MEDS: pantoprazole 40 MG vial IV SCH (08:34)
[2021-02-18] MEDS: enoxaparin 80mg/0.8ml syringe SUBCUT SCH ×2 (08:35→20:54)
[2021-02-18] MEDS: lactobacillus rhamnosus 10,000 MMU CELLS/CAPSULE PO SCH ×2 (08:35→20:53)
[2021-02-18] MEDS: CISatracurium besylate inj. 100 MG in normal saline 100ml IV soln 90 ML IV PRN ×4 (09:51→23:22)
--- NOTE | 2021-02-18 14:20 | NUR ---
Reassessment: Pt remains intubated and tolerating TF with GRV WNL however TF still not at goal rate. Per EMR TF was started on 02/16 at 30 mL/hr and appears to only be advancing by 20 mL Q24H. Noted pt receiving Propofol at 24.3 mL/hr providing ~641.5 kcal/day. Recommend changing TF to Vital High Protein with goal rate of 85 mL/hr as to not overfeed pt on the vent. TC to RN to discuss updated TF recommendations. RN confirmed that TF only running at 70 mL/hr at this time. RD recommended advancing TF to goal rate given GRV WNL. Serum Na is slightly elevated at 146 MMOL/L however down from 02/17. Pt receiving 100 mL water flush Q4H. Will monitor serum Na and need for adjustment to water flush recommendations. LBM 02/15 documented as moderate in size with PRN bowel care available however not documented to be given. Pt would benefit from routine bowel care for bowel regularity. Will continue to follow closely. Rec: 1) Continuous TF via OG tube using Vital High Protein with goal rate of 85 mL/hr to provide 2040 mL total volume/day, 2040 kcal, 179 g protein, and 1705 mL water 2) Monitor Propofol rate and adjust TF goal rate and formula as appropriate; IF Propofol is discontinued, resume previous TF recommendations of continuous Vital AF with goal rate of 85 mL/hr to provide 2040 mL total volume/day, 2448 kcal, 153 g protein, and 1654 mL water 3) Additional 100 mL water flush Q4H; monitor serum Na 4) Prealbumin q Sunday/; daily scaled weights 5) Routine bowel care Addendum: 02/18/21 at [address] Amended: Links added.
[2021-02-18] MEDS ORDERED: acetaminophen 325mg tablet OGT PRN (15:15)
[2021-02-18] MEDS ORDERED: mag hydrox/Alum hydrox/simeth 30ml oral suspension OGT PRN (15:16)
[2021-02-18] MEDS ORDERED: temazepam 15mg capsule OGT PRN (15:17)
[2021-02-18] MEDS ORDERED: Neutra Phos packet OGT PRN (15:17)
[2021-02-18] MEDS ORDERED: HYDROcodone/acetaminophen 7.5MG/325MG per 15ml UD CUP OGT PRN (15:20)
[2021-02-18] MEDS ORDERED: dextrose ORAL solution 15 GM/59 ML bottle OGT PRN ×2 (15:30)
--- NOTE | 2021-02-18 18:30 | NUR ---
[facility] I have received report from Orlin DICK and had the opportunity to ask questions and assume patient care. Addendum: 02/18/21 at 1918 by Kathy Kelly RN Amended: Links added.
[2021-02-18] MEDS: insulin glargine (Lantus) pen - multi-dose SQ SCH (21:32)
[2021-02-19] VITALS (24 sets, daily range): BP systolic 109–183; BP diastolic 53–84
[2021-02-19] MEDS: FENTANYL-0.9 % NACL/PF 100 ML IV PRN ×8 (00:05→21:56)
[2021-02-19] MEDS: mineral oil/petrolatum ophthal oint EACHEYE SCH ×4 (02:00→20:00)
[2021-02-19] MEDS: propofol 1000mg/100ml bottle 100 ML IV SCH ×6 (02:13→21:36)
[2021-02-19] MEDS: insulin regular, human U-100 3ml vial - multi-dose SQ SCH ×4 (02:57→21:54)
[2021-02-19 03:54] LABS: PARTIAL THROMBOPLASTIN TIME 27 SECONDS (22-32)
[2021-02-19 03:55] LABS: BASOPHILS % (AUTO) 0.3 % (0-1); EOSINOPHILS % (AUTO) 0 % (0-6); HEMATOCRIT 38.6 % (42.0-52.0); HEMOGLOBIN 12.2 g/dl (14.0-17.9); LYMPHOCYTES # (AUTO) 0.2 X10'3 (1.1-4.8); LYMPHOCYTES % (AUTO) 1.6 % (21-51); MEAN CORPUSCULAR HEMOGLOBIN 26.7 PG (27.0-31.0); MEAN CORPUSCULAR HGB CONC 31.6 g/dL (33.0-36.5); MEAN CORPUSCULAR VOLUME 84.6 FL (78-98); MEAN PLATELET VOLUME 8.5 FL (7.4-10.4); MONOCYTES % (AUTO) 7.5 % (2-12); NEUTROPHILS # (AUTO) 12.5 X10'3 (1.8-7.7); NEUTROPHILS % (AUTO) 90.6 % (42-75); PLATELET COUNT 247 X10'3 (140-440); RED BLOOD COUNT 4.56 X10'6 (4.70-6.10); RED CELL DISTRIBUTION WIDTH 16.3 % (11.5-14.5); WHITE BLOOD COUNT 13.8 X10'3 (4.5-11.0)
[2021-02-19 03:59] LABS: ALANINE AMINOTRANSFERASE 123 U/L (12-78); ALBUMIN 1.7 G/DL (3.4-5.0); ALBUMIN/GLOBULIN RATIO 0.5 (1.1-1.5); ALKALINE PHOSPHATASE 136 IU/L (46-116); ANION GAP 3 (8-16); ASPARTATE AMINO TRANSFERASE 45 U/L (10-37); BILIRUBIN,TOTAL 0.3 MG/DL (0.1-1.0); BLOOD UREA NITROGEN 42 MG/DL (7-18); BUN/CREATININE RATIO 51.2 (5.4-32.0); CALCIUM 6.7 MG/DL (8.5-10.1); CHLORIDE 113 MMOL/L (99-107); CREATININE 0.82 MG/DL (0.60-1.10); GLUCOSE 184 MG/DL (70-104); MAGNESIUM 3.1 MG/DL (1.5-2.4); SODIUM 143 MMOL/L (135-145); TOTAL CARBON DIOXIDE 27.5 MMOL/L (24-32); TOTAL PROTEIN 5.2 G/DL (6.4-8.2); eGFR > 90 ML/MIN
[2021-02-19 04:13] LABS: ABG BASE EXCESS -0.5 mmol/L (-2.0-2.0); ABG HCO3 27.3 mmol/L (22.0-26.0); ABG OXYGEN SATURATION 94.7 % (94-97); ABG PCO2 (T) 59.8 mmHg (35.0-48.0); ABG PO2 (T) 79.3 mmHg (75.0-100.0); FCOHb 0.3 % (0.0-3.9); FMetHb 0.3 % (0.0-1.5); FO2Hb 94.1 % (94-97); PATIENT TEMPERATURE 37.2; PEEP 10 cm H2O; RESPIRATORY RATE 27 b/min; TIDAL VOLUME 450 mL; TOTAL HEMOGLOBIN 12.9 G/dl (14.0-18.0)
[2021-02-19] MEDS: CISatracurium besylate inj. 100 MG in normal saline 100ml IV soln 90 ML IV PRN ×5 (04:19→22:34)
[2021-02-19] MEDS ORDERED: insulin Lispro (HumaLOG) vial - multi-dose SQ ONE (04:20)
[2021-02-19] MEDS ORDERED: calcium chloride 100 MG/1 ML inj IV ONE (04:20)
[2021-02-19] MEDS ORDERED: dextrose 50%-water 50ml dispensing syringe IV ONE (04:20)
--- NOTE | 2021-02-19 05:13 | NUR ---
Dr. Gonzalez updated on patient's status during rounds. Orders placed by .
[2021-02-19 06:29] LABS: TOTAL CELLS COUNTED 100
[2021-02-19 06:30] LABS: ANISOCYTOSIS 1+; MICROCYTOSIS 1+; PLATELET ESTIMATE NORMAL; POIKILOCYTOSIS FEW
--- NOTE | 2021-02-19 06:30 | NUR ---
Problems reprioritized. Patient report given, questions answered & plan of care reviewed with Sari DICK.
[2021-02-19] MEDS: K and/or MAG REPLACEMENT MC SCH ×2 (08:00→20:00)
[2021-02-19] MEDS ORDERED: furosemide 40mg/4ml inj IV SCH (08:00)
[2021-02-19] MEDS: methylPREDNISolone sod succ/PF 40mg inj. IV SCH ×2 (08:48→21:32)
[2021-02-19] MEDS: lactobacillus rhamnosus 10,000 MMU CELLS/CAPSULE PO SCH ×2 (08:48→21:32)
[2021-02-19] MEDS: cefepime 2g/NS 100ml ADVANTAGE 100 ML IV SCH ×2 (08:48→19:40)
[2021-02-19] MEDS: pantoprazole 40 MG vial IV SCH (08:48)
[2021-02-19] MEDS: enoxaparin 80mg/0.8ml syringe SUBCUT SCH ×2 (08:49→21:34)
--- NOTE | 2021-02-19 10:26 | NUR ---
pt proned . BP slightly elevated verus previous vs. sats at the lowest were 67 but slowly increased to 93 with no vent changes.
[2021-02-19 11:42] LABS: ALBUMIN 1.8 G/DL (3.4-5.0); ANION GAP 5 (8-16); BLOOD UREA NITROGEN 41 MG/DL (7-18); BUN/CREATININE RATIO 46.6 (5.4-32.0); CALCIUM 7.4 MG/DL (8.5-10.1); CHLORIDE 112 MMOL/L (99-107); CREATININE 0.88 MG/DL (0.60-1.10); GLUCOSE 110 MG/DL (70-104); POTASSIUM 5.3 MMOL/L (3.5-5.1); SODIUM 147 MMOL/L (135-145); TOTAL CARBON DIOXIDE 29.9 MMOL/L (24-32); eGFR 86 ML/MIN
--- NOTE | 2021-02-19 17:56 | NUR ---
pt moved to room 2011a in the bed with RT bagging. pt then placed onto the rotoprone bed. lines et tubing secured per protocol
--- NOTE | 2021-02-19 18:22 | NUR ---
report given to Kathy DICK. time allowed for questions
--- NOTE | 2021-02-19 18:30 | NUR ---
[facility] I have received report from Sari DICK and had the opportunity to ask questions and assume patient care. Patient rotating on rotorest bed. Safety checks performed. Will continue to monitor closely. Addendum: 02/19/21 at 1914 by Kathy Kelly RN Amended: Links added. Addendum: 02/20/21 at 0052 by Kathy Kelly RN amend: patient is on rotoprone bed
--- NOTE | 2021-02-19 21:20 | NUR ---
Patient hypertensive with rotation and stimulation. On max dose of sedation and pain medication Dr. Parada notified. Order received to start Precedex. Will continue to monitor.
[2021-02-19] MEDS: furosemide 40mg/4ml inj IV SCH (21:34)
[2021-02-19] MEDS: polyethylene glycol 3350 17gm powd pack PO SCH (21:35)
[2021-02-19] MEDS: insulin glargine (Lantus) pen - multi-dose SQ SCH (21:56)
[2021-02-19] MEDS: dexmedetomidin/NS 400mcg/100ml 100 ML IV SCH (22:46)
[2021-02-20] VITALS (25 sets, daily range): BP systolic 104–224; BP diastolic 40–124
[2021-02-20] MEDS: propofol 1000mg/100ml bottle 100 ML IV SCH ×7 (00:20→23:20)
[2021-02-20] MEDS: FENTANYL-0.9 % NACL/PF 100 ML IV PRN ×5 (00:21→12:41)
[2021-02-20] MEDS: mineral oil/petrolatum ophthal oint EACHEYE SCH ×4 (02:00→20:00)
[2021-02-20] MEDS: insulin regular, human U-100 3ml vial - multi-dose SQ SCH ×4 (02:40→21:36)
[2021-02-20 03:13] LABS: ABG BASE EXCESS 1.8 mmol/L (-2.0-2.0); ABG HCO3 28.3 mmol/L (22.0-26.0); ABG OXYGEN SATURATION 95.4 % (94-97); ABG PCO2 (T) 53.8 mmHg (35.0-48.0); ABG PO2 (T) 80.7 mmHg (75.0-100.0); FCOHb 0.1 % (0.0-3.9); FMetHb 0.3 % (0.0-1.5); PATIENT TEMPERATURE 37.5; PEEP 15 cm H2O; RESPIRATORY RATE 27 b/min; TIDAL VOLUME 450 mL; TOTAL HEMOGLOBIN 12.8 G/dl (14.0-18.0)
[2021-02-20] MEDS: CISatracurium besylate inj. 100 MG in normal saline 100ml IV soln 90 ML IV PRN ×3 (03:45→12:41)
[2021-02-20 03:47] LABS: BASOPHILS # (AUTO) 0.1 X10'3 (0-0.2); BASOPHILS % (AUTO) 0.5 % (0-1); EOSINOPHILS # (AUTO) 0.1 X10'3 (0-0.9); EOSINOPHILS % (AUTO) 0.8 % (0-6); HEMATOCRIT 37.6 % (42.0-52.0); HEMOGLOBIN 11.9 g/dl (14.0-17.9); LYMPHOCYTES # (AUTO) 0.3 X10'3 (1.1-4.8); LYMPHOCYTES % (AUTO) 1.8 % (21-51); MEAN CORPUSCULAR HEMOGLOBIN 26.9 PG (27.0-31.0); MEAN CORPUSCULAR HGB CONC 31.8 g/dL (33.0-36.5); MEAN CORPUSCULAR VOLUME 84.6 FL (78-98); MEAN PLATELET VOLUME 8.7 FL (7.4-10.4); MONOCYTES # (AUTO) 0.7 X10'3 (0-0.9); MONOCYTES % (AUTO) 4.6 % (2-12); NEUTROPHILS # (AUTO) 13.7 X10'3 (1.8-7.7); NEUTROPHILS % (AUTO) 92.3 % (42-75); PLATELET COUNT 256 X10'3 (140-440); RED BLOOD COUNT 4.44 X10'6 (4.70-6.10); RED CELL DISTRIBUTION WIDTH 16.2 % (11.5-14.5); WHITE BLOOD COUNT 14.8 X10'3 (4.5-11.0)
[2021-02-20 04:02] LABS: ALANINE AMINOTRANSFERASE 142 U/L (12-78); ALBUMIN 1.6 G/DL (3.4-5.0); ALBUMIN/GLOBULIN RATIO 0.4 (1.1-1.5); ALKALINE PHOSPHATASE 128 IU/L (46-116); ANION GAP 3 (8-16); ASPARTATE AMINO TRANSFERASE 84 U/L (10-37); BILIRUBIN,TOTAL 0.5 MG/DL (0.1-1.0); BLOOD UREA NITROGEN 46 MG/DL (7-18); BUN/CREATININE RATIO 52.3 (5.4-32.0); C-REACTIVE PROTEIN 4.46 MG/DL (0.0-0.5); CALCIUM 7.2 MG/DL (8.5-10.1); CHLORIDE 111 MMOL/L (99-107); CREATININE 0.88 MG/DL (0.60-1.10); GLUCOSE 123 MG/DL (70-104); MAGNESIUM 2.5 MG/DL (1.5-2.4); POTASSIUM 4.9 MMOL/L (3.5-5.1); SODIUM 145 MMOL/L (135-145); TOTAL CARBON DIOXIDE 31.4 MMOL/L (24-32); TOTAL PROTEIN 5.3 G/DL (6.4-8.2); eGFR 86 ML/MIN
[2021-02-20 04:32] LABS: D-DIMER 6.39 MG/L FEU (0-0.50); PARTIAL THROMBOPLASTIN TIME 26 SECONDS (22-32)
--- NOTE | 2021-02-20 04:35 | NUR ---
Dr. Winston updated on patient's status during rounds. No new orders at this time
--- NOTE | 2021-02-20 06:31 | NUR ---
Problems reprioritized. Patient report given, questions answered & plan of care reviewed with Jay DICK.
[2021-02-20] MEDS: dexmedetomidin/NS 400mcg/100ml 100 ML IV SCH ×2 (06:45→19:24)
[2021-02-20 07:18] LABS: ANISOCYTOSIS 1+; PLATELET ESTIMATE NORMAL; TOTAL CELLS COUNTED 100
[2021-02-20 07:19] LABS: POIKILOCYTOSIS FEW; SCHISTOCYTES FEW; TOXIC GRANULATION 1+
[2021-02-20] MEDS: cefepime 2g/NS 100ml ADVANTAGE 100 ML IV SCH ×2 (08:07→19:58)
[2021-02-20] MEDS: methylPREDNISolone sod succ/PF 40mg inj. IV SCH ×2 (08:08→21:03)
[2021-02-20] MEDS: lactobacillus rhamnosus 10,000 MMU CELLS/CAPSULE PO SCH ×2 (08:08→21:04)
[2021-02-20] MEDS: furosemide 40mg/4ml inj IV SCH ×3 (08:08→21:03)
[2021-02-20] MEDS: enoxaparin 80mg/0.8ml syringe SUBCUT SCH ×2 (08:08→21:04)
[2021-02-20] MEDS: pantoprazole 40 MG vial IV SCH (08:08)
[2021-02-20] MEDS: K and/or MAG REPLACEMENT MC SCH ×2 (08:59→20:00)
--- NOTE | 2021-02-20 09:07 | NUR ---
0600- Received report from Kathy. Assumed care of patient. Supined patient for chest xray after placing on FiO2 100%, O2 sat dropped to 90%. Resumed proning. 0700- limited assessment completed, facial swelling present. able to feel sub q emphysema in upper chest, neck. Adjusting precedex for decreased BP. 0756- Received call from radiologist Dr Conwya, new Left sided pneumo, approx 10%.
--- NOTE | 2021-02-20 11:40 | NUR ---
1130- Dr Rishabh uribe, reported new L pneumo, reviewed newest lab values. New orders, PEEP 10, repeat chest xray at 1600.
--- NOTE | 2021-02-20 13:46 | NUR ---
1300- placed pt on 100%FiO2 in anticipation on placing supine. attempted supine patient desated to 62%. Unable to perform any care, inspected upper chest skin and adjusted sheet an lines. Proned patient. Recovered to 94% after half hour. Returned FiO2 to 85%. Chest tube to waterseal. suction tubing present. Discussed with hemodialysis charge nurse, placed to 20cm suction, will confirm with MD when he rounds later this afternoon.
[2021-02-20] MEDS: magnesium hydroxide 30ml (MOM) UD suspension OGT PRN (15:03)
[2021-02-20] MEDS: fentaNYL/PF inj 1,000 MCG in dextrose 5%-water 80 ML IV PRN ×3 (16:26→23:21)
[2021-02-20] MEDS: CISatracurium besylate inj. 100 MG in dextrose 5%-water 90 ML IV PRN ×2 (16:27→21:06)
--- NOTE | 2021-02-20 17:02 | NUR ---
1500- Confirmed with Dr Keating that R chest tube to be to 20cm suction. 1640- FiO2 at 100% to supine for chest xray, Desated to 70%, BP jumped to 220/124, gave bolus of fent and increased precedex to 0.2. 1700-Dr Keating reviewed xray, message relayed to me is, "no chest tube to the left at this time".
--- NOTE | 2021-02-20 18:14 | NUR ---
Problems reprioritized. Patient report given, questions answered & plan of care reviewed with
--- NOTE | 2021-02-20 18:30 | NUR ---
Patient in room [facility] 2010. I have received report from Jay DICK and had the opportunity to ask questions and assume patient care. Addendum: 02/20/21 at 1937 by Kathy Kelly RN Amended: Links added.
--- NOTE | 2021-02-20 20:00 | NUR ---
HOB 11 degrees, rotating on rotoprone bed. reverse trendelenberg Addendum: 02/20/21 at 2223 by Kathy Kelly RN Amended: Links added.
[2021-02-20] MEDS: polyethylene glycol 3350 17gm powd pack PO SCH (21:04)
[2021-02-20] MEDS: insulin glargine (Lantus) pen - multi-dose SQ SCH (21:38)
[2021-02-21] VITALS (24 sets, daily range): BP systolic 114–167; BP diastolic 40–79
[2021-02-21] MEDS: propofol 1000mg/100ml bottle 100 ML IV SCH ×6 (01:34→23:45)
[2021-02-21] MEDS: mineral oil/petrolatum ophthal oint EACHEYE SCH ×4 (01:34→19:57)
[2021-02-21] MEDS: fentaNYL/PF inj 1,000 MCG in dextrose 5%-water 80 ML IV PRN ×8 (01:35→23:45)
[2021-02-21] MEDS: insulin regular, human U-100 3ml vial - multi-dose SQ SCH ×3 (02:26→14:29)
[2021-02-21 02:35] LABS: BASOPHILS # (AUTO) 0.2 X10'3 (0-0.2); BASOPHILS % (AUTO) 1.2 % (0-1); EOSINOPHILS % (AUTO) 0.1 % (0-6); HEMATOCRIT 35.7 % (42.0-52.0); HEMOGLOBIN 11.5 g/dl (14.0-17.9); LYMPHOCYTES # (AUTO) 0.2 X10'3 (1.1-4.8); LYMPHOCYTES % (AUTO) 1.6 % (21-51); MEAN CORPUSCULAR HGB CONC 32.1 g/dL (33.0-36.5); MEAN CORPUSCULAR VOLUME 84.1 FL (78-98); MEAN PLATELET VOLUME 8.9 FL (7.4-10.4); MONOCYTES # (AUTO) 0.4 X10'3 (0-0.9); MONOCYTES % (AUTO) 3.2 % (2-12); NEUTROPHILS # (AUTO) 12.5 X10'3 (1.8-7.7); NEUTROPHILS % (AUTO) 93.9 % (42-75); PLATELET COUNT 253 X10'3 (140-440); RED BLOOD COUNT 4.25 X10'6 (4.70-6.10); RED CELL DISTRIBUTION WIDTH 16.3 % (11.5-14.5); WHITE BLOOD COUNT 13.3 X10'3 (4.5-11.0)
[2021-02-21 02:52] LABS: ALANINE AMINOTRANSFERASE 116 U/L (12-78); ALBUMIN 1.5 G/DL (3.4-5.0); ALBUMIN/GLOBULIN RATIO 0.4 (1.1-1.5); ALKALINE PHOSPHATASE 111 IU/L (46-116); ANION GAP 2 (8-16); ASPARTATE AMINO TRANSFERASE 51 U/L (10-37); BILIRUBIN,TOTAL 0.4 MG/DL (0.1-1.0); BLOOD UREA NITROGEN 55 MG/DL (7-18); BUN/CREATININE RATIO 49.1 (5.4-32.0); C-REACTIVE PROTEIN 17.99 MG/DL (0.0-0.5); CALCIUM 7.1 MG/DL (8.5-10.1); CHLORIDE 106 MMOL/L (99-107); CREATININE 1.12 MG/DL (0.60-1.10); GLUCOSE 135 MG/DL (70-104); MAGNESIUM 2.3 MG/DL (1.5-2.4); PHOSPHORUS 3.7 MG/DL (2.3-4.5); POTASSIUM 4.6 MMOL/L (3.5-5.1); PREALBUMIN 16.9 MG/DL (19-36); SODIUM 144 MMOL/L (135-145); TOTAL CARBON DIOXIDE 36.4 MMOL/L (24-32); TOTAL PROTEIN 5.3 G/DL (6.4-8.2); TRIGLYCERIDES 136 MG/DL (20-135); eGFR 65 ML/MIN
[2021-02-21 02:58] LABS: D-DIMER 4.39 MG/L FEU (0-0.50); PARTIAL THROMBOPLASTIN TIME 28 SECONDS (22-32)
[2021-02-21 03:12] LABS: ABG BASE EXCESS 10.4 mmol/L (-2.0-2.0); ABG HCO3 37.7 mmol/L (22.0-26.0); ABG OXYGEN SATURATION 96.2 % (94-97); ABG PCO2 (T) 68.6 mmHg (35.0-48.0); ABG PO2 (T) 92.8 mmHg (75.0-100.0); FCOHb 0.2 % (0.0-3.9); FMetHb 0.4 % (0.0-1.5); FO2Hb 95.6 % (94-97); PATIENT TEMPERATURE 38.2; PEEP 10 cm H2O; RESPIRATORY RATE 27 b/min; TIDAL VOLUME 450 mL; TOTAL HEMOGLOBIN 11.9 G/dl (14.0-18.0)
[2021-02-21] MEDS ORDERED: acetaminophen 325mg/10.15ml oral unit dose solution PO PRN (03:15)
[2021-02-21] MEDS ORDERED: acetaminophen 325mg/10.15ml oral unit dose solution CORPAK PRN (03:16)
[2021-02-21] MEDS: acetaminophen 325mg/10.15ml oral unit dose solution OGT PRN ×2 (03:37→16:12)
[2021-02-21] MEDS: dexmedetomidin/NS 400mcg/100ml 100 ML IV SCH ×3 (03:50→22:49)
--- NOTE | 2021-02-21 06:19 | NUR ---
Problems reprioritized. Patient report given, questions answered & plan of care reviewed with Jay DICK.
[2021-02-21 06:49] LABS: ANISOCYTOSIS 1+; ELLIPTOCYTES FEW; PLATELET ESTIMATE NORMAL; POLYCHROMASIA FEW; SCHISTOCYTES FEW; TOTAL CELLS COUNTED 100
[2021-02-21] MEDS: pantoprazole 40 MG vial IV SCH (07:23)
[2021-02-21] MEDS: furosemide 40mg/4ml inj IV SCH ×2 (07:23→19:56)
[2021-02-21] MEDS: cefepime 2g/NS 100ml ADVANTAGE 100 ML IV SCH ×2 (07:23→19:55)
[2021-02-21] MEDS: CISatracurium besylate inj. 100 MG in dextrose 5%-water 90 ML IV PRN ×4 (07:23→23:47)
[2021-02-21] MEDS: enoxaparin 80mg/0.8ml syringe SUBCUT SCH (07:24)
[2021-02-21] MEDS: methylPREDNISolone sod succ/PF 40mg inj. IV SCH ×3 (07:24→19:55)
[2021-02-21] MEDS: lactobacillus rhamnosus 10,000 MMU CELLS/CAPSULE PO SCH ×2 (07:24→19:57)
[2021-02-21] MEDS: K and/or MAG REPLACEMENT MC SCH ×2 (07:59→20:29)
--- NOTE | 2021-02-21 10:45 | NUR ---
06- Received report from Kathy, assumed care of patient. 07- Reviewed xray, worse than yesterday, still not able to tolerate turns, limited assessment due to lack of access to patient. Remains proned on rotoprone bed. Lips and tongue very swollen, tongue protruding. 929- Dr Radu uribe, reported Tmax of 38.3 last noc, chest xray. 944- Dr Amara uribe- updated on inability to supine patient, worsening chest xray. placed order for thoracentesis with fluid to lab. 1015-Spoke with brother Taz at length, updated on patient status. 1030- okayed 1 visit by Taz, if fully vaccinated. Verified with weigh and charge worker. Taz to bring proof of vaccination and arrange a time to come see patient today. placed page to angio in regards to thora.
[2021-02-21] MEDS ORDERED: furosemide 40mg/4ml inj IV SCH (10:50)
--- NOTE | 2021-02-21 11:35 | NUR ---
Alvino Consult: Pt remains intubated tolerating TF at goal GRV WNL. Alvino 10 w/ closed sacral DTI per EMR. LBM 02/15 6 days constipation receiving miralax HS w/ PRN MoM given 02/[address] d/w RN regarding additional bowel care if MD agreeable. Noted pt propofol increased to 27ml/hr today providing additional 713 kcals/day. IF this rate persists will need to adjust TF further as not to overfeed on vent. Also noted pt wt +7kg w/ overall +4L fluid balance likely bed scaled error w/ most accurate wt prior 98.4kg making true BMI 27. CRP up to 17.99 from 4.46 prior per EMR. Will monitor for TF tolerance and adjustment needs as medically indicated. Rec: 1) Continuous TF via OG tube using Vital High Protein with goal rate of 85 mL/hr to provide 2040 mL total volume/day, 2040 kcal, 179 g protein, and 1705 mL water 2) Monitor Propofol rate and adjust TF goal rate and formula as appropriate; IF Propofol is discontinued, resume previous TF recommendations of continuous Vital AF with goal rate of 85 mL/hr to provide 2040 mL total volume/day, 2448 kcal, 153 g protein, and 1654 mL water 3) Additional 100 mL water flush Q4H; monitor serum Na 4) Prealbumin q Sunday/; daily scaled weights 5) Routine bowel care; 6 days constipation Addendum: 02/21/21 at [address] Amended: Links added.
--- NOTE | 2021-02-21 15:17 | NUR ---
1500- Patients brother was allowed a visit earlier. (also admitted) rolled to bedside by nursing for a brief visit. Patient still unable to be placed supine, desatted to 88% just with laying flat while supine. Spoke with IR. Thoracentesis will be happening tomorrow.
[2021-02-21] MEDS: polyethylene glycol 3350 17gm powd pack PO SCH (19:56)
[2021-02-21] MEDS: magnesium hydroxide 30ml (MOM) UD suspension OGT PRN (19:56)
[2021-02-21] MEDS: enoxaparin 100mg/ml syringe SUBCUT SCH (19:57)
[2021-02-21] MEDS: insulin glargine (Lantus) pen - multi-dose SQ SCH (20:25)
[2021-02-22] VITALS (24 sets, daily range): BP systolic 134–171; BP diastolic 48–78
--- NOTE | 2021-02-22 00:30 | NUR ---
Patient in room CICU 2011a. I have received report from Jay DICK and had the opportunity to ask questions and assume patient care.
[2021-02-22] MEDS: mineral oil/petrolatum ophthal oint EACHEYE SCH ×4 (02:00→20:00)
[2021-02-22] MEDS: insulin regular, human U-100 3ml vial - multi-dose SQ SCH ×4 (02:12→20:57)
[2021-02-22] MEDS: methylPREDNISolone sod succ/PF 40mg inj. IV SCH ×4 (02:23→20:13)
[2021-02-22] MEDS: propofol 1000mg/100ml bottle 100 ML IV SCH ×6 (02:33→21:56)
[2021-02-22] MEDS: fentaNYL/PF inj 1,000 MCG in dextrose 5%-water 80 ML IV PRN ×6 (02:54→23:10)
[2021-02-22 03:22] LABS: BASOPHILS % (AUTO) 0.4 % (0-1); EOSINOPHILS % (AUTO) 0 % (0-6); HEMATOCRIT 32.7 % (42.0-52.0); HEMOGLOBIN 10.7 g/dl (14.0-17.9); LYMPHOCYTES # (AUTO) 0.4 X10'3 (1.1-4.8); LYMPHOCYTES % (AUTO) 3.7 % (21-51); MEAN CORPUSCULAR HEMOGLOBIN 27.4 PG (27.0-31.0); MEAN CORPUSCULAR HGB CONC 32.8 g/dL (33.0-36.5); MEAN CORPUSCULAR VOLUME 83.7 FL (78-98); MEAN PLATELET VOLUME 9.4 FL (7.4-10.4); MONOCYTES # (AUTO) 0.4 X10'3 (0-0.9); MONOCYTES % (AUTO) 3.7 % (2-12); NEUTROPHILS % (AUTO) 92.2 % (42-75); PLATELET COUNT 259 X10'3 (140-440); RED BLOOD COUNT 3.91 X10'6 (4.70-6.10); RED CELL DISTRIBUTION WIDTH 15.6 % (11.5-14.5); WHITE BLOOD COUNT 9.8 X10'3 (4.5-11.0)
[2021-02-22 03:30] LABS: PARTIAL THROMBOPLASTIN TIME 32 SECONDS (22-32)
[2021-02-22 03:45] LABS: ALANINE AMINOTRANSFERASE 90 U/L (12-78); ALBUMIN 1.4 G/DL (3.4-5.0); ALBUMIN/GLOBULIN RATIO 0.4 (1.1-1.5); ALKALINE PHOSPHATASE 104 IU/L (46-116); ANION GAP 1 (8-16); ASPARTATE AMINO TRANSFERASE 34 U/L (10-37); BILIRUBIN,TOTAL 0.3 MG/DL (0.1-1.0); BLOOD UREA NITROGEN 64 MG/DL (7-18); BUN/CREATININE RATIO 58.2 (5.4-32.0); C-REACTIVE PROTEIN 14.83 MG/DL (0.0-0.5); CALCIUM 7.2 MG/DL (8.5-10.1); CHLORIDE 103 MMOL/L (99-107); GLUCOSE 204 MG/DL (70-104); MAGNESIUM 2.6 MG/DL (1.5-2.4); POTASSIUM 4.7 MMOL/L (3.5-5.1); SODIUM 143 MMOL/L (135-145); TOTAL CARBON DIOXIDE 39.3 MMOL/L (24-32); TOTAL PROTEIN 5.4 G/DL (6.4-8.2); TRIGLYCERIDES 161 MG/DL (20-135); eGFR 67 ML/MIN
[2021-02-22 04:06] LABS: ABG BASE EXCESS 10.7 mmol/L (-2.0-2.0); ABG HCO3 37.3 mmol/L (22.0-26.0); ABG OXYGEN SATURATION 92.6 % (94-97); ABG PCO2 (T) 61.8 mmHg (35.0-48.0); ABG PO2 (T) 71.1 mmHg (75.0-100.0); FCOHb 0.3 % (0.0-3.9); FMetHb 0.3 % (0.0-1.5); PATIENT TEMPERATURE 37.7; PEEP 10 cm H2O; RESPIRATORY RATE 27 b/min; TIDAL VOLUME 450 mL; TOTAL HEMOGLOBIN 11.6 G/dl (14.0-18.0)
[2021-02-22 04:21] LABS: ANISOCYTOSIS 1+; ELLIPTOCYTES FEW; PLATELET ESTIMATE NORMAL; POLYCHROMASIA FEW; TOTAL CELLS COUNTED 100
[2021-02-22 04:22] LABS: ROULEAUX 1+
--- NOTE | 2021-02-22 05:46 | NUR ---
Supined patient for morning chest xray. Patient's O2 sats dropped to 69% with a slow recovery speed. Patient bolused with 100% fiO2 for 6 mins then returned to an fiO2 of 80%. Patient currently sating in the low 90's
--- NOTE | 2021-02-22 06:28 | NUR ---
Problems reprioritized. Patient report given, questions answered & plan of care reviewed with Dena DICK.
--- NOTE | 2021-02-22 06:30 | NUR ---
Received report from MAYELIN Rosa
[2021-02-22] MEDS: CISatracurium besylate inj. 100 MG in dextrose 5%-water 90 ML IV PRN ×3 (06:45→19:16)
[2021-02-22] MEDS: K and/or MAG REPLACEMENT MC SCH ×2 (08:00→19:49)
[2021-02-22] MEDS: cefepime 2g/NS 100ml ADVANTAGE 100 ML IV SCH ×2 (08:48→20:12)
[2021-02-22] MEDS: furosemide 40mg/4ml inj IV SCH ×2 (08:49→20:13)
[2021-02-22] MEDS: pantoprazole 40 MG vial IV SCH (08:49)
[2021-02-22] MEDS: lactobacillus rhamnosus 10,000 MMU CELLS/CAPSULE PO SCH ×2 (08:49→20:12)
[2021-02-22] MEDS: dexmedetomidin/NS 400mcg/100ml 100 ML IV SCH ×2 (10:20→21:00)
--- NOTE | 2021-02-22 18:13 | NUR ---
Gave report to MAYELIN Copeland
--- NOTE | 2021-02-22 18:30 | NUR ---
Patient in room CICU 2010. I have received report from Dena DICK and had the opportunity to ask questions and assume patient care.
[2021-02-22] MEDS: polyethylene glycol 3350 17gm powd pack OGT SCH (20:55)
[2021-02-22] MEDS: enoxaparin 100mg/ml syringe SUBCUT SCH (20:56)
[2021-02-22] MEDS: insulin glargine (Lantus) pen - multi-dose SQ SCH (20:59)
[2021-02-23] VITALS (24 sets, daily range): BP systolic 125–178; BP diastolic 46–84
[2021-02-23] MEDS: CISatracurium besylate inj. 100 MG in dextrose 5%-water 90 ML IV PRN ×4 (01:55→22:07)
[2021-02-23] MEDS: mineral oil/petrolatum ophthal oint EACHEYE SCH ×4 (02:00→20:00)
[2021-02-23] MEDS: methylPREDNISolone sod succ/PF 40mg inj. IV SCH ×4 (02:14→20:19)
[2021-02-23 03:19] LABS: BASOPHILS % (AUTO) 0.2 % (0-1); EOSINOPHILS % (AUTO) 0 % (0-6); HEMATOCRIT 33.3 % (42.0-52.0); HEMOGLOBIN 10.8 g/dl (14.0-17.9); LYMPHOCYTES # (AUTO) 0.5 X10'3 (1.1-4.8); LYMPHOCYTES % (AUTO) 4.3 % (21-51); MEAN CORPUSCULAR HEMOGLOBIN 27.1 PG (27.0-31.0); MEAN CORPUSCULAR HGB CONC 32.3 g/dL (33.0-36.5); MEAN CORPUSCULAR VOLUME 83.9 FL (78-98); MONOCYTES # (AUTO) 0.6 X10'3 (0-0.9); NEUTROPHILS # (AUTO) 9.6 X10'3 (1.8-7.7); NEUTROPHILS % (AUTO) 89.5 % (42-75); PLATELET COUNT 303 X10'3 (140-440); RED BLOOD COUNT 3.97 X10'6 (4.70-6.10); RED CELL DISTRIBUTION WIDTH 15.5 % (11.5-14.5); WHITE BLOOD COUNT 10.7 X10'3 (4.5-11.0)
[2021-02-23] MEDS: propofol 1000mg/100ml bottle 100 ML IV SCH ×6 (03:25→18:59)
[2021-02-23] MEDS: fentaNYL/PF inj 1,000 MCG in dextrose 5%-water 80 ML IV PRN ×6 (03:26→22:07)
[2021-02-23 03:36] LABS: D-DIMER 3.55 MG/L FEU (0-0.50); PARTIAL THROMBOPLASTIN TIME 24 SECONDS (22-32)
[2021-02-23 03:51] LABS: ALANINE AMINOTRANSFERASE 82 U/L (12-78); ALBUMIN 1.5 G/DL (3.4-5.0); ALBUMIN/GLOBULIN RATIO 0.4 (1.1-1.5); ALKALINE PHOSPHATASE 95 IU/L (46-116); ANION GAP 0 (8-16); ASPARTATE AMINO TRANSFERASE 31 U/L (10-37); BILIRUBIN,TOTAL 0.3 MG/DL (0.1-1.0); BLOOD UREA NITROGEN 69 MG/DL (7-18); BUN/CREATININE RATIO 70.4 (5.4-32.0); C-REACTIVE PROTEIN 7.08 MG/DL (0.0-0.5); CALCIUM 7.4 MG/DL (8.5-10.1); CHLORIDE 103 MMOL/L (99-107); CREATININE 0.98 MG/DL (0.60-1.10); GLUCOSE 163 MG/DL (70-104); MAGNESIUM 2.6 MG/DL (1.5-2.4); POTASSIUM 4.6 MMOL/L (3.5-5.1); SODIUM 143 MMOL/L (135-145); TOTAL PROTEIN 5.4 G/DL (6.4-8.2); TRIGLYCERIDES 135 MG/DL (20-135); eGFR 76 ML/MIN
[2021-02-23 03:56] LABS: TOTAL CARBON DIOXIDE 40.1 MMOL/L (24-32)
[2021-02-23 04:01] LABS: ABG BASE EXCESS 13.9 mmol/L (-2.0-2.0); ABG HCO3 41.2 mmol/L (22.0-26.0); ABG OXYGEN SATURATION 94.7 % (94-97); ABG PCO2 (T) 68.8 mmHg (35.0-48.0); FCOHb 0.4 % (0.0-3.9); FMetHb 0.1 % (0.0-1.5); FO2Hb 94.2 % (94-97); PATIENT TEMPERATURE 37.7; PEEP 10 cm H2O; RESPIRATORY RATE 27 b/min; TIDAL VOLUME 450 mL; TOTAL HEMOGLOBIN 11.9 G/dl (14.0-18.0)
--- NOTE | 2021-02-23 06:20 | NUR ---
Problems reprioritized. Patient report given, questions answered & plan of care reviewed with Dena DICK.
[2021-02-23] MEDS: dexmedetomidin/NS 400mcg/100ml 100 ML IV SCH (06:40)
[2021-02-23] MEDS: K and/or MAG REPLACEMENT MC SCH ×2 (07:11→20:00)
[2021-02-23] MEDS: cefepime 2g/NS 100ml ADVANTAGE 100 ML IV SCH (07:23)
[2021-02-23] MEDS: furosemide 40mg/4ml inj IV SCH (07:24)
[2021-02-23] MEDS: lactobacillus rhamnosus 10,000 MMU CELLS/CAPSULE PO SCH ×2 (07:24→20:19)
[2021-02-23] MEDS: pantoprazole 40 MG vial IV SCH (07:24)
[2021-02-23] MEDS: enoxaparin 100mg/ml syringe SUBCUT SCH ×2 (07:27→20:19)
[2021-02-23] MEDS: insulin regular, human U-100 3ml vial - multi-dose SQ SCH ×3 (08:00→20:35)
[2021-02-23] MEDS ORDERED: VANCOMYCIN 1GM/200ML IVPB 200 ML IV ONE (17:35)
[2021-02-23] MEDS ORDERED: vancomycin/NS 1 GM ADD-VANTAGE 250 ML X 1 DOSE IV ONE (18:30)
--- NOTE | 2021-02-23 18:30 | NUR ---
Patient in room CICU 2010. I have received report from Dena DICK and had the opportunity to ask questions and assume patient care.
[2021-02-23] MEDS: polyethylene glycol 3350 17gm powd pack OGT SCH (20:19)
[2021-02-23] MEDS: insulin glargine (Lantus) pen - multi-dose SQ SCH (20:35)
[2021-02-24] VITALS (24 sets, daily range): BP systolic 128–203; BP diastolic 46–96
--- NOTE | 2021-02-24 00:30 | NUR ---
PT was placed in the supine position after increasing FiO2 to 100%. Face pack removed and Personal hygiene performed. PT's eyes were closed, Lacrilube was placed and gauze was placed over eyes for further protection. Ice placed on face to reduce swelling. ETT remains secure. PT tolerated supine position for roughly 30 mins on the FiO2 of 100% with sats decreasing to mid 80's. Pads were placed back on PT and once secure PT was placed back in the prone position and O2 sats returned to the low to mid 90's and Fio2 decreased back down to 75%. Will continue to monitor.
[2021-02-24] MEDS: fentaNYL/PF inj 1,000 MCG in dextrose 5%-water 80 ML IV PRN ×4 (01:22→11:37)
[2021-02-24] MEDS: mineral oil/petrolatum ophthal oint EACHEYE SCH ×4 (01:23→20:00)
[2021-02-24] MEDS: methylPREDNISolone sod succ/PF 40mg inj. IV SCH ×3 (02:22→16:00)
[2021-02-24] MEDS: propofol 1000mg/100ml bottle 100 ML IV SCH ×7 (02:42→23:58)
[2021-02-24 03:16] LABS: BASOPHILS % (AUTO) 0.2 % (0-1); EOSINOPHILS % (AUTO) 0 % (0-6); HEMATOCRIT 34.2 % (42.0-52.0); LYMPHOCYTES # (AUTO) 0.6 X10'3 (1.1-4.8); LYMPHOCYTES % (AUTO) 4.6 % (21-51); MEAN CORPUSCULAR HEMOGLOBIN 26.8 PG (27.0-31.0); MEAN CORPUSCULAR VOLUME 83.8 FL (78-98); MEAN PLATELET VOLUME 9.1 FL (7.4-10.4); MONOCYTES # (AUTO) 1.1 X10'3 (0-0.9); MONOCYTES % (AUTO) 9.3 % (2-12); NEUTROPHILS # (AUTO) 10.4 X10'3 (1.8-7.7); NEUTROPHILS % (AUTO) 85.9 % (42-75); PLATELET COUNT 335 X10'3 (140-440); RED BLOOD COUNT 4.08 X10'6 (4.70-6.10); RED CELL DISTRIBUTION WIDTH 14.9 % (11.5-14.5); WHITE BLOOD COUNT 12.1 X10'3 (4.5-11.0)
[2021-02-24 03:29] LABS: D-DIMER 2.98 MG/L FEU (0-0.50); PARTIAL THROMBOPLASTIN TIME 27 SECONDS (22-32)
[2021-02-24 03:52] LABS: ALANINE AMINOTRANSFERASE 173 U/L (12-78); ALBUMIN 1.5 G/DL (3.4-5.0); ALBUMIN/GLOBULIN RATIO 0.4 (1.1-1.5); ALKALINE PHOSPHATASE 90 IU/L (46-116); ANION GAP 3 (8-16); ASPARTATE AMINO TRANSFERASE 90 U/L (10-37); BILIRUBIN,TOTAL 0.4 MG/DL (0.1-1.0); BLOOD UREA NITROGEN 69 MG/DL (7-18); BUN/CREATININE RATIO 72.6 (5.4-32.0); C-REACTIVE PROTEIN 3.52 MG/DL (0.0-0.5); CALCIUM 7.7 MG/DL (8.5-10.1); CHLORIDE 100 MMOL/L (99-107); CREATININE 0.95 MG/DL (0.60-1.10); GLUCOSE 103 MG/DL (70-104); MAGNESIUM 2.9 MG/DL (1.5-2.4); PHOSPHORUS 3.7 MG/DL (2.3-4.5); POTASSIUM 4.3 MMOL/L (3.5-5.1); PREALBUMIN 30.3 MG/DL (19-36); SODIUM 143 MMOL/L (135-145); TOTAL CARBON DIOXIDE 39.8 MMOL/L (24-32); TOTAL PROTEIN 5.3 G/DL (6.4-8.2); TRIGLYCERIDES 129 MG/DL (20-135); eGFR 79 ML/MIN
[2021-02-24 04:00] LABS: ABG BASE EXCESS 14.6 mmol/L (-2.0-2.0); ABG HCO3 40.7 mmol/L (22.0-26.0); ABG OXYGEN SATURATION 90.9 % (94-97); ABG PCO2 (T) 58.4 mmHg (35.0-48.0); ABG PO2 (T) 61.9 mmHg (75.0-100.0); FCOHb 0.3 % (0.0-3.9); FMetHb 0.3 % (0.0-1.5); FO2Hb 90.4 % (94-97); PATIENT TEMPERATURE 37.3; PEEP 10 cm H2O; RESPIRATORY RATE 27 b/min; TIDAL VOLUME 450 mL; TOTAL HEMOGLOBIN 11.8 G/dl (14.0-18.0)
[2021-02-24] MEDS: insulin regular, human U-100 3ml vial - multi-dose SQ SCH ×4 (04:06→20:52)
[2021-02-24] MEDS: CISatracurium besylate inj. 100 MG in dextrose 5%-water 90 ML IV PRN ×2 (06:00→09:55)
--- NOTE | 2021-02-24 06:42 | NUR ---
Problems reprioritized. Patient report given, questions answered & plan of care reviewed with Kat DICK.
--- NOTE | 2021-02-24 06:44 | NUR ---
Problems reprioritized. Patient report given, questions answered & plan of care reviewed with MAYELIN Cavazos.
[2021-02-24] MEDS: lactobacillus rhamnosus 10,000 MMU CELLS/CAPSULE PO SCH ×2 (07:10→20:17)
[2021-02-24] MEDS: pantoprazole 40 MG vial IV SCH (07:10)
[2021-02-24] MEDS: K and/or MAG REPLACEMENT MC SCH ×2 (07:10→20:00)
[2021-02-24] MEDS: furosemide 40mg/4ml inj IV SCH (07:10)
[2021-02-24] MEDS: enoxaparin 100mg/ml syringe SUBCUT SCH ×2 (07:11→20:19)
--- NOTE | 2021-02-24 11:35 | NUR ---
Reassessment: Pt remains intubated and tolerating TF at goal rate with GRV WNL. Noted Propofol rate has been increased to 33.27 mL/hr providing roughly 878 kcal/day. Recommend reducing TF goal rate to 75 mL/hr to prevent overfeeding while on the vent. Will update EMR and place TC to bedside RN. [place] 02/23, first BM since 02/15 per EMR. Pt receiving routine Miralax with PRN MoM available last given 02/21. Will continue to follow closely and make recommendations as appropriate. Rec: 1) Continuous TF via OG tube using Vital High Protein with goal rate of 75 mL/hr to provide 1800 mL total volume/day, 1800 kcal, 1158 g protein, and 1505 mL water. Kcal from Propofol and TF combined will provide 2678 kcal/day 2) Monitor Propofol rate and adjust TF goal rate and formula as appropriate; IF Propofol is discontinued, resume previous TF recommendations of continuous Vital AF with goal rate of 85 mL/hr to provide 2040 mL total volume/day, 2448 kcal, 153 g protein, and 1654 mL water 3) Additional 100 mL water flush Q4H; monitor serum Na 4) Prealbumin q Sunday/; daily scaled weights 5) Routine bowel care Addendum: 02/24/21 at [address] Amended: Links added. Addendum: 02/24/21 at [address] F/u: Bedside RN notified of change in TF goal rate
[2021-02-24] MEDS: vancomycin/NS 1 GM ADD-VANTAGE 250 ML IV SCH ×2 (11:44→23:06)
--- NOTE | 2021-02-24 11:51 | NUR ---
Patient supined and sating in the mid 80s on current vent settings (Fio2 75% and peep of 10). Will attempt to raise Fi02 to see if patient can tolerate supine longer.
--- NOTE | 2021-02-24 12:03 | NUR ---
Patient only able to tolerated supine for about 30 minutes before desaturating into the mid to low 80 on 100% Fio2. Patient placed back into the prone position with a good recovery time.
[2021-02-24] MEDS: FENTANYL 1000MCG/NS 100 ML BAG /PF IV PRN ×3 (14:49→21:27)
[2021-02-24] MEDS ORDERED: CISatracurium besylate inj. 100 MG in dextrose 5%-water 90 ML IV PRN (15:00)
--- NOTE | 2021-02-24 18:17 | NUR ---
Problems reprioritized. Patient report given, questions answered & plan of care reviewed with MAYELIN Copeland.
--- NOTE | 2021-02-24 18:20 | NUR ---
Patient in room C[facility] 2010. I have received report from Kat DICK and had the opportunity to ask questions and assume patient care.
[2021-02-24] MEDS: polyethylene glycol 3350 17gm powd pack OGT SCH (20:23)
[2021-02-24] MEDS: insulin glargine (Lantus) pen - multi-dose SQ SCH (20:56)
[2021-02-24] MEDS: CISatracurium besylate 100 MG in NS 100ml IV IV PRN (22:11)
--- NOTE | 2021-02-24 22:56 | NUR ---
Pt is on rotaprone. Addendum: 02/24/21 at 2257 by Corina Howard RN Amended: Links added.
[2021-02-25] VITALS (24 sets, daily range): BP systolic 122–174; BP diastolic 42–81
[2021-02-25] MEDS: FENTANYL 1000MCG/NS 100 ML BAG /PF IV PRN ×8 (00:28→22:02)
[2021-02-25] MEDS: methylPREDNISolone sod succ/PF 40mg inj. IV SCH ×3 (01:00→15:34)
[2021-02-25] MEDS: mineral oil/petrolatum ophthal oint EACHEYE SCH ×4 (02:07→20:14)
[2021-02-25] MEDS: insulin regular, human U-100 3ml vial - multi-dose SQ SCH ×4 (02:52→20:41)
[2021-02-25 03:12] LABS: ABG BASE EXCESS 17.5 mmol/L (-2.0-2.0); ABG PCO2 (T) 62.9 mmHg (35.0-48.0); ABG PO2 (T) 65.8 mmHg (75.0-100.0); FCOHb 0.4 % (0.0-3.9); FMetHb 0.3 % (0.0-1.5); FO2Hb 91.4 % (94-97); PATIENT TEMPERATURE 37.4; PEEP 10 cm H2O; RESPIRATORY RATE 27 b/min; TIDAL VOLUME 450 mL; TOTAL HEMOGLOBIN 11.5 G/dl (14.0-18.0)
[2021-02-25 03:43] LABS: BASOPHILS % (AUTO) 0.2 % (0-1); EOSINOPHILS % (AUTO) 0.1 % (0-6); HEMATOCRIT 32.3 % (42.0-52.0); HEMOGLOBIN 10.4 g/dl (14.0-17.9); LYMPHOCYTES # (AUTO) 0.9 X10'3 (1.1-4.8); LYMPHOCYTES % (AUTO) 7.5 % (21-51); MEAN CORPUSCULAR HEMOGLOBIN 26.7 PG (27.0-31.0); MEAN CORPUSCULAR HGB CONC 32.3 g/dL (33.0-36.5); MEAN CORPUSCULAR VOLUME 82.8 FL (78-98); MEAN PLATELET VOLUME 9.1 FL (7.4-10.4); MONOCYTES # (AUTO) 0.9 X10'3 (0-0.9); MONOCYTES % (AUTO) 7.8 % (2-12); NEUTROPHILS # (AUTO) 10.1 X10'3 (1.8-7.7); NEUTROPHILS % (AUTO) 84.4 % (42-75); PLATELET COUNT 309 X10'3 (140-440); RED BLOOD COUNT 3.91 X10'6 (4.70-6.10); RED CELL DISTRIBUTION WIDTH 15.4 % (11.5-14.5); WHITE BLOOD COUNT 11.9 X10'3 (4.5-11.0)
[2021-02-25 03:57] LABS: D-DIMER 2.84 MG/L FEU (0-0.50); PARTIAL THROMBOPLASTIN TIME 24 SECONDS (22-32)
[2021-02-25 03:58] LABS: ALANINE AMINOTRANSFERASE 129 U/L (12-78); ALBUMIN 1.5 G/DL (3.4-5.0); ALBUMIN/GLOBULIN RATIO 0.5 (1.1-1.5); ALKALINE PHOSPHATASE 83 IU/L (46-116); ANION GAP -1 (8-16); ASPARTATE AMINO TRANSFERASE 34 U/L (10-37); BILIRUBIN,TOTAL 0.4 MG/DL (0.1-1.0); BLOOD UREA NITROGEN 66 MG/DL (7-18); BUN/CREATININE RATIO 77.6 (5.4-32.0); C-REACTIVE PROTEIN 1.97 MG/DL (0.0-0.5); CALCIUM 7.7 MG/DL (8.5-10.1); CHLORIDE 103 MMOL/L (99-107); CREATININE 0.85 MG/DL (0.60-1.10); GLUCOSE 86 MG/DL (70-104); MAGNESIUM 2.6 MG/DL (1.5-2.4); POTASSIUM 4.1 MMOL/L (3.5-5.1); SODIUM 141 MMOL/L (135-145); TOTAL CARBON DIOXIDE 38.7 MMOL/L (24-32); TOTAL PROTEIN 4.8 G/DL (6.4-8.2); eGFR 90 ML/MIN
[2021-02-25] MEDS: CISatracurium besylate 100 MG in NS 100ml IV IV PRN ×3 (04:30→18:13)
--- NOTE | 2021-02-25 05:17 | NUR ---
PT was placed in the supine position after increasing FiO2 to 100%. Face pack removed and Personal hygiene performed. PT's eyes were closed, Lacrilube was placed and non-adherent pad was placed over eyes for further protection. Ice placed on face to reduce swelling. RT changed ETT sen d/t it being soiled. ETT remains secure. PT tolerated supine position for 30 + mins on the FiO2 of 100% with sats decreasing to mid 80's. Pads were placed back on PT and once secure PT was placed back in the prone position and O2 sats returned to the low to mid 90's and Fio2 decreased back down to 75%. Will continue to monitor.
--- NOTE | 2021-02-25 06:15 | NUR ---
Patient in room C[facility] 2010. I have received report from MAYELIN Copeland and had the opportunity to ask questions and assume patient care.
--- NOTE | 2021-02-25 06:15 | NUR ---
Problems reprioritized. Patient report given, questions answered & plan of care reviewed with Kat DICK.
[2021-02-25] MEDS: propofol 1000mg/100ml bottle 100 ML IV SCH ×5 (06:22→22:01)
[2021-02-25] MEDS: K and/or MAG REPLACEMENT MC SCH ×2 (06:48→20:00)
[2021-02-25] MEDS: pantoprazole 40 MG vial IV SCH (07:07)
[2021-02-25] MEDS: lactobacillus rhamnosus 10,000 MMU CELLS/CAPSULE PO SCH ×2 (07:07→20:14)
[2021-02-25] MEDS: enoxaparin 100mg/ml syringe SUBCUT SCH ×2 (07:08→20:14)
[2021-02-25] MEDS: furosemide 40mg/4ml inj IV SCH ×4 (07:09→20:34)
[2021-02-25] MEDS ORDERED: furosemide 40mg/4ml inj IV SCH (08:00)
--- NOTE | 2021-02-25 10:36 | NUR ---
Patient was supined for about an hour
--- NOTE | 2021-02-25 10:37 | NUR ---
Patient was supined for about an hour. Prior to flipping patient into the supine position patient was placed on 100% FiO2. Patient was then supined and a thorough skin assessment was done. Patient's PICC line dressing change was performed using sterile technique. Patient was then placed in reverse Trendelenburg and was rotated side to side. Overall patient only desaturated to the high 80s however, he became more bradycardic with a heart rate in the mid to high 40s and occasional PACs. At this time it was decided that the patient was no longer tolerating being supined. A second RN was brought into the room and the patient was prepared to prone again. Face shield was replaced on the patient and secured. Body straps were buckled and tightened. With one RN at the head of the bed and on at the foot of the bed patient was turned back into the prone position and the vent FiO2 setting was turned back to 75%. Patient saturation returned to the patient's baseline of mid-low 90s. Heart rate in the high 40s to low 50s. Will attempt another supine prior to the end of shift. Will continue to monitor.
[2021-02-25] MEDS: vancomycin/NS 1 GM ADD-VANTAGE 250 ML IV SCH (11:11)
--- NOTE | 2021-02-25 15:49 | NUR ---
Patient was supined for 45 minutes. Prior to flipping patient into the supine position patient was placed on 100% FiO2. Patient was then supined. Patient maintained a saturation of 97% so the FiO2 was turned down to 90% and this brought the patient's saturation to 91%. Patient was then placed in reverse Trendelenburg and was rotated side to side. Overall patient tolerated this turn better than the last. Wound care was provided to patient's nose and chin and ice was placed to reduce edema. After the 45 minutes a second RN was brought into the room and the patient was prepared to prone again. Ice pack was removed and face shield was replaced on the patient and secured. Body straps were buckled and tightened. With one RN at the head of the bed and on at the foot of the bed patient was turned back into the prone position and the vent FiO2 setting was turned back to 75%. Will continue to monitor.
--- NOTE | 2021-02-25 19:00 | NUR ---
RECEIVED REPORT; PT REMAINS SEDATED AND PARALYZED ON VENT; CONTINUOUS PRONING ON ROTOPRONE BED; GOOD UO; TF AT GOAL;
[2021-02-25] MEDS: polyethylene glycol 3350 17gm powd pack OGT SCH (20:15)
--- NOTE | 2021-02-25 20:30 | NUR ---
PT SUPINE BY 30MINS; TOLERATED FAIR, SATS DOWN 86-90%; NO OTHER CHANGES; UPDATE GIVEN TO FAMILY
[2021-02-25] MEDS: insulin glargine (Lantus) pen - multi-dose SQ SCH (20:42)
[2021-02-25] MEDS ORDERED: VANCOMYCIN LEVEL IV ONE (23:30)
[2021-02-26] VITALS (24 sets, daily range): BP systolic 101–158; BP diastolic 34–72
[2021-02-26] MEDS: methylPREDNISolone sod succ/PF 40mg inj. IV SCH ×4 (00:12→23:58)
[2021-02-26] MEDS: FENTANYL 1000MCG/NS 100 ML BAG /PF IV PRN ×8 (00:12→22:26)
[2021-02-26] MEDS: CISatracurium besylate 100 MG in NS 100ml IV IV PRN ×4 (00:13→20:35)
[2021-02-26] MEDS: propofol 1000mg/100ml bottle 100 ML IV SCH ×7 (01:31→21:01)
[2021-02-26] MEDS: furosemide 40mg/4ml inj IV SCH ×4 (01:31→20:27)
[2021-02-26] MEDS: mineral oil/petrolatum ophthal oint EACHEYE SCH ×4 (01:31→20:28)
[2021-02-26] MEDS: insulin regular, human U-100 3ml vial - multi-dose SQ SCH ×4 (01:50→20:32)
--- NOTE | 2021-02-26 02:00 | NUR ---
Pt supine by 1hr for bath and linen change; pt had large BM; ice to face; pt on 100% fio2 when supine, sats good; returned to 75% when returned to prone.
[2021-02-26 03:18] LABS: BASOPHILS % (AUTO) 0.3 % (0-1); EOSINOPHILS % (AUTO) 0.3 % (0-6); HEMATOCRIT 34.5 % (42.0-52.0); HEMOGLOBIN 11.1 g/dl (14.0-17.9); LYMPHOCYTES # (AUTO) 0.9 X10'3 (1.1-4.8); LYMPHOCYTES % (AUTO) 7.8 % (21-51); MEAN CORPUSCULAR HGB CONC 32.2 g/dL (33.0-36.5); MEAN CORPUSCULAR VOLUME 83.7 FL (78-98); MEAN PLATELET VOLUME 9.2 FL (7.4-10.4); MONOCYTES # (AUTO) 0.9 X10'3 (0-0.9); MONOCYTES % (AUTO) 8.1 % (2-12); NEUTROPHILS # (AUTO) 9.6 X10'3 (1.8-7.7); NEUTROPHILS % (AUTO) 83.5 % (42-75); PLATELET COUNT 339 X10'3 (140-440); RED BLOOD COUNT 4.12 X10'6 (4.70-6.10); WHITE BLOOD COUNT 11.5 X10'3 (4.5-11.0)
[2021-02-26 03:34] LABS: PARTIAL THROMBOPLASTIN TIME 25 SECONDS (22-32)
[2021-02-26 03:37] LABS: ALANINE AMINOTRANSFERASE 105 U/L (12-78); ALBUMIN 1.6 G/DL (3.4-5.0); ALBUMIN/GLOBULIN RATIO 0.5 (1.1-1.5); ALKALINE PHOSPHATASE 81 IU/L (46-116); ANION GAP 2 (8-16); ASPARTATE AMINO TRANSFERASE 26 U/L (10-37); BILIRUBIN,TOTAL 0.4 MG/DL (0.1-1.0); BLOOD UREA NITROGEN 69 MG/DL (7-18); BUN/CREATININE RATIO 74.2 (5.4-32.0); C-REACTIVE PROTEIN 1.49 MG/DL (0.0-0.5); CALCIUM 7.3 MG/DL (8.5-10.1); CHLORIDE 101 MMOL/L (99-107); CREATININE 0.93 MG/DL (0.60-1.10); GLUCOSE 86 MG/DL (70-104); MAGNESIUM 2.3 MG/DL (1.5-2.4); POTASSIUM 3.6 MMOL/L (3.5-5.1); SODIUM 145 MMOL/L (135-145); VANCOMYCIN,TROUGH 13.8 UG/ML (6.0-14.0); eGFR 81 ML/MIN
[2021-02-26 03:46] LABS: TOTAL CARBON DIOXIDE 42.3 MMOL/L (24-32)
[2021-02-26 05:07] LABS: ABG BASE EXCESS 18.4 mmol/L (-2.0-2.0); ABG HCO3 46.5 mmol/L (22.0-26.0); ABG OXYGEN SATURATION 92.9 % (94-97); ABG PCO2 (T) 72.7 mmHg (35.0-48.0); ABG PO2 (T) 68.9 mmHg (75.0-100.0); ALLEN'S TEST POSITIVE; FCOHb 0.1 % (0.0-3.9); FMetHb 0.3 % (0.0-1.5); FO2Hb 92.5 % (94-97); PATIENT TEMPERATURE 36.8; PEEP 10 cm H2O; RESPIRATORY RATE 25 b/min; TIDAL VOLUME 450 mL; TOTAL HEMOGLOBIN 12.1 G/dl (14.0-18.0)
--- NOTE | 2021-02-26 06:39 | NUR ---
Report given; questions answered
--- NOTE | 2021-02-26 06:45 | NUR ---
Patient in room CICU 2010. I have received report from MAYELIN Clayton and had the opportunity to ask questions and assume patient care.
[2021-02-26] MEDS: pantoprazole 40 MG vial IV SCH (07:58)
[2021-02-26] MEDS: lactobacillus rhamnosus 10,000 MMU CELLS/CAPSULE PO SCH ×2 (07:58→20:27)
[2021-02-26] MEDS: enoxaparin 100mg/ml syringe SUBCUT SCH ×2 (07:59→20:28)
[2021-02-26] MEDS: K and/or MAG REPLACEMENT MC SCH ×2 (08:00→20:28)
--- NOTE | 2021-02-26 10:23 | NUR ---
Patient was supined for one hour. Prior to flipping patient into the supine position patient was placed on 100% FiO2. Patient was then supined. Patient maintained a saturation of 9% so the FiO2 was turned down to 90% and this brought the patient's saturation to 91%. Patient was then placed in reverse Trendelenburg and was rotated side to side. Overall patient tolerated this turn better than the last. Wound care was provided to patient's nose and chin and ice was placed to reduce edema. After the 45 minutes a second RN was brought into the room and the patient was prepared to prone again. Ice pack was removed and face shield was replaced on the patient and secured. Body straps were buckled and tightened. With one RN at the head of the bed and on at the foot of the bed patient was turned back into the prone position and the vent FiO2 setting was turned back to 75%. Will continue to monitor. Addendum: 02/26/21 at 1025 by Kat Frausto RN Please disregard this note was from yesterday 02/25
--- NOTE | 2021-02-26 10:25 | NUR ---
Patient was supined for one hour. Prior to flipping patient into the supine position patient was placed on 100% FiO2. Patient was then supined. Patient maintained a saturation of 93% although, patient's heart rate stayed in the low-mid 40s. Thorough skin assessment was done and patients ET securement was replaced by RT. After the hour a second RN was brought into the room and the patient was prepared to prone again. Face shield was replaced on the patient and secured. Body straps were buckled and tightened. With one RN at the head of the bed and on at the foot of the bed patient was turned back into the prone position and the vent FiO2 setting was turned back to 75%. Will continue to monitor.
[2021-02-26] MEDS: spironolactone 25 MG tablet OGT SCH ×2 (13:02→21:00)
--- NOTE | 2021-02-26 13:37 | NUR ---
Reassessment: Pt remains intubated and tolerating TF at goal rate with GRV WNL. LBM 02/26, documented as large. No changes to nutrition intervention recommendations at this time. Will continue to follow closely. Rec: 1) Continuous TF via OG tube using Vital High Protein with goal rate of 75 mL/hr to provide 1800 mL total volume/day, 1800 kcal, 1158 g protein, and 1505 mL water. Kcal from Propofol and TF combined will provide 2678 kcal/day 2) Monitor Propofol rate and adjust TF goal rate and formula as appropriate; IF Propofol is discontinued, resume previous TF recommendations of continuous Vital AF with goal rate of 85 mL/hr to provide 2040 mL total volume/day, 2448 kcal, 153 g protein, and 1654 mL water 3) Additional 100 mL water flush Q4H; monitor serum Na 4) Prealbumin q Sunday/; daily scaled weights 5) Routine bowel care Addendum: 02/26/21 at [address] Amended: Links added.
[2021-02-26 17:35] LABS: ABG BASE EXCESS 16.8 mmol/L (-2.0-2.0); ABG HCO3 41.9 mmol/L (22.0-26.0); ABG OXYGEN SATURATION 92.8 % (94-97); ABG PCO2 (T) 53.5 mmHg (35.0-48.0); ABG PO2 (T) 66.6 mmHg (75.0-100.0); FCOHb 0.1 % (0.0-3.9); FMetHb 0.3 % (0.0-1.5); FO2Hb 92.4 % (94-97); PATIENT TEMPERATURE 37.4; PEEP 10 cm H2O; RESPIRATORY RATE 22 b/min; TOTAL HEMOGLOBIN 11.4 G/dl (14.0-18.0)
--- NOTE | 2021-02-26 18:17 | NUR ---
Problems reprioritized. Patient report given, questions answered & plan of care reviewed with MAYELIN Pruitt.
--- NOTE | 2021-02-26 18:30 | NUR ---
Patient in room C[facility] 2010. I have received report from Kat DICK and had the opportunity to ask questions and assume patient care.
[2021-02-26] MEDS: insulin glargine (Lantus) pen - multi-dose SQ SCH (20:33)
[2021-02-26] MEDS: polyethylene glycol 3350 17gm powd pack OGT SCH (21:00)
[2021-02-26] MEDS: NORepinephrine 8mg/ 250ml NS 250 ML IV SCH (23:58)
[2021-02-27] VITALS (24 sets, daily range): BP systolic 106–190; BP diastolic 36–68
[2021-02-27] MEDS: propofol 1000mg/100ml bottle 100 ML IV SCH ×7 (00:26→20:47)
[2021-02-27] MEDS: FENTANYL 1000MCG/NS 100 ML BAG /PF IV PRN ×9 (01:27→22:37)
[2021-02-27] MEDS: furosemide 40mg/4ml inj IV SCH ×4 (02:16→19:23)
[2021-02-27] MEDS: insulin regular, human U-100 3ml vial - multi-dose SQ SCH ×4 (02:16→20:01)
[2021-02-27] MEDS: CISatracurium besylate 100 MG in NS 100ml IV IV PRN ×5 (02:36→20:48)
[2021-02-27 03:16] LABS: BASOPHILS # (AUTO) 0.1 X10'3 (0-0.2); BASOPHILS % (AUTO) 0.3 % (0-1); EOSINOPHILS # (AUTO) 0.3 X10'3 (0-0.9); EOSINOPHILS % (AUTO) 1.5 % (0-6); HEMATOCRIT 36.6 % (42.0-52.0); HEMOGLOBIN 11.8 g/dl (14.0-17.9); LYMPHOCYTES # (AUTO) 1.1 X10'3 (1.1-4.8); LYMPHOCYTES % (AUTO) 6.2 % (21-51); MEAN CORPUSCULAR HEMOGLOBIN 27.1 PG (27.0-31.0); MEAN CORPUSCULAR HGB CONC 32.3 g/dL (33.0-36.5); MEAN PLATELET VOLUME 9.5 FL (7.4-10.4); MONOCYTES # (AUTO) 0.9 X10'3 (0-0.9); MONOCYTES % (AUTO) 5.1 % (2-12); NEUTROPHILS # (AUTO) 15.5 X10'3 (1.8-7.7); NEUTROPHILS % (AUTO) 86.9 % (42-75); PLATELET COUNT 382 X10'3 (140-440); RED BLOOD COUNT 4.36 X10'6 (4.70-6.10); RED CELL DISTRIBUTION WIDTH 15.2 % (11.5-14.5); WHITE BLOOD COUNT 17.8 X10'3 (4.5-11.0)
[2021-02-27 03:44] LABS: D-DIMER 2.77 MG/L FEU (0-0.50); PARTIAL THROMBOPLASTIN TIME 25 SECONDS (22-32)
[2021-02-27 03:48] LABS: ALANINE AMINOTRANSFERASE 90 U/L (12-78); ALBUMIN 1.8 G/DL (3.4-5.0); ALBUMIN/GLOBULIN RATIO 0.5 (1.1-1.5); ALKALINE PHOSPHATASE 87 IU/L (46-116); ANION GAP 4 (8-16); ASPARTATE AMINO TRANSFERASE 30 U/L (10-37); BILIRUBIN,TOTAL 0.5 MG/DL (0.1-1.0); BLOOD UREA NITROGEN 70 MG/DL (7-18); BUN/CREATININE RATIO 75.3 (5.4-32.0); C-REACTIVE PROTEIN 1.16 MG/DL (0.0-0.5); CALCIUM 7.8 MG/DL (8.5-10.1); CHLORIDE 100 MMOL/L (99-107); CREATININE 0.93 MG/DL (0.60-1.10); GLUCOSE 122 MG/DL (70-104); MAGNESIUM 2.4 MG/DL (1.5-2.4); POTASSIUM 3.6 MMOL/L (3.5-5.1); SODIUM 144 MMOL/L (135-145); TOTAL PROTEIN 5.5 G/DL (6.4-8.2); eGFR 81 ML/MIN
[2021-02-27] MEDS: mineral oil/petrolatum ophthal oint EACHEYE SCH ×4 (03:52→19:21)
[2021-02-27 03:55] LABS: ABG BASE EXCESS 14.9 mmol/L (-2.0-2.0); ABG HCO3 40.3 mmol/L (22.0-26.0); ABG OXYGEN SATURATION 96.1 % (94-97); ABG PO2 (T) 85.9 mmHg (75.0-100.0); FCOHb 0.3 % (0.0-3.9); FMetHb 0.3 % (0.0-1.5); FO2Hb 95.5 % (94-97); PATIENT TEMPERATURE 37.1; PEEP 10 cm H2O; RESPIRATORY RATE 22 b/min; TIDAL VOLUME 550 mL; TOTAL HEMOGLOBIN 13.2 G/dl (14.0-18.0)
[2021-02-27 04:11] LABS: TOTAL CARBON DIOXIDE 40.5 MMOL/L (24-32)
--- NOTE | 2021-02-27 06:40 | NUR ---
Problems reprioritized. Patient report given, questions answered & plan of care reviewed with Skyler DICK.
[2021-02-27] MEDS: methylPREDNISolone sod succ/PF 40mg inj. IV SCH ×3 (07:18→23:51)
[2021-02-27] MEDS: pantoprazole 40 MG vial IV SCH (07:18)
[2021-02-27] MEDS: spironolactone 25 MG tablet OGT SCH ×3 (07:19→20:07)
[2021-02-27] MEDS: K and/or MAG REPLACEMENT MC SCH ×2 (08:00→19:25)
[2021-02-27] MEDS: lactobacillus rhamnosus 10,000 MMU CELLS/CAPSULE PO SCH ×2 (08:06→19:23)
[2021-02-27] MEDS: enoxaparin 100mg/ml syringe SUBCUT SCH ×2 (08:09→19:23)
[2021-02-27] MEDS: NORepinephrine 8mg/ 250ml NS 250 ML IV SCH (12:11)
--- NOTE | 2021-02-27 18:15 | NUR ---
Patient in room CICU 2010. I have received report from MAYELIN Holland and had the opportunity to ask questions and assume patient care.
[2021-02-27] MEDS: insulin glargine (Lantus) pen - multi-dose SQ SCH (20:02)
[2021-02-27] MEDS: polyethylene glycol 3350 17gm powd pack OGT SCH (20:06)
--- NOTE | 2021-02-27 22:00 | NUR ---
Patient placed supine. FiO2 increased to 100% FiO2. Skin check, documentation of wounds, bed bath completed. Ice pack to face during patient care.
[2021-02-28] VITALS (24 sets, daily range): BP systolic 100–173; BP diastolic 45–73
[2021-02-28] MEDS ORDERED: atropine 0.1mg/ml 10ml syringe ONE (00:11)
--- NOTE | 2021-02-28 00:20 | NUR ---
Phone call to Dr. Devi. Patient became bradycardia in the 30-40's after being supine for approximately 90 minutes. Patient placed back to prone position in rotoprone bed. Bradycardic episodes increased in frequency rate as low as 29. MAP maintained above 60 with the short episodes of bradycardia. Propofol drip stopped and Fentanyl drip rate decreased. Patient remains paralyzed. ORDER to stop Propofol and change to VERSED drip per protocol.
[2021-02-28] MEDS ORDERED: midazolam 1 mg/ML 2ml injection IV PRN (00:30)
[2021-02-28] MEDS: NORepinephrine 8mg/ 250ml NS 250 ML IV SCH ×2 (00:32→12:53)
[2021-02-28] MEDS: midazolam 100mg in NS 100ml 100 ML IV PRN ×3 (00:52→20:33)
[2021-02-28] MEDS: mineral oil/petrolatum ophthal oint EACHEYE SCH ×4 (02:08→19:22)
[2021-02-28] MEDS: furosemide 40mg/4ml inj IV SCH ×4 (02:16→19:20)
[2021-02-28] MEDS: FENTANYL 1000MCG/NS 100 ML BAG /PF IV PRN ×6 (02:26→21:48)
[2021-02-28] MEDS: insulin regular, human U-100 3ml vial - multi-dose SQ SCH ×4 (02:56→19:50)
[2021-02-28 03:05] LABS: ABG BASE EXCESS 18.3 mmol/L (-2.0-2.0); ABG HCO3 44.5 mmol/L (22.0-26.0); ABG PCO2 (T) 58.6 mmHg (35.0-48.0); ABG PO2 (T) 82.2 mmHg (75.0-100.0); FCOHb 0.2 % (0.0-3.9); FMetHb 0.2 % (0.0-1.5); FO2Hb 95.6 % (94-97); PATIENT TEMPERATURE 36.6; PEEP 10 cm H2O; RESPIRATORY RATE 18 b/min; TIDAL VOLUME 550 mL; TOTAL HEMOGLOBIN 11.9 G/dl (14.0-18.0)
[2021-02-28 03:22] LABS: BASOPHILS % (AUTO) 0.1 % (0-1); EOSINOPHILS # (AUTO) 0.1 X10'3 (0-0.9); EOSINOPHILS % (AUTO) 0.5 % (0-6); LYMPHOCYTES # (AUTO) 0.7 X10'3 (1.1-4.8); LYMPHOCYTES % (AUTO) 4.9 % (21-51); MEAN CORPUSCULAR HEMOGLOBIN 27.3 PG (27.0-31.0); MEAN CORPUSCULAR HGB CONC 32.4 g/dL (33.0-36.5); MEAN CORPUSCULAR VOLUME 84.1 FL (78-98); MONOCYTES # (AUTO) 0.7 X10'3 (0-0.9); MONOCYTES % (AUTO) 4.8 % (2-12); NEUTROPHILS # (AUTO) 12.8 X10'3 (1.8-7.7); NEUTROPHILS % (AUTO) 89.7 % (42-75); PLATELET COUNT 298 X10'3 (140-440); RED BLOOD COUNT 4.04 X10'6 (4.70-6.10); RED CELL DISTRIBUTION WIDTH 15.1 % (11.5-14.5); WHITE BLOOD COUNT 14.3 X10'3 (4.5-11.0)
[2021-02-28 03:45] LABS: D-DIMER 2.07 MG/L FEU (0-0.50)
[2021-02-28 03:50] LABS: ALANINE AMINOTRANSFERASE 79 U/L (12-78); ALBUMIN 1.7 G/DL (3.4-5.0); ALBUMIN/GLOBULIN RATIO 0.5 (1.1-1.5); ALKALINE PHOSPHATASE 79 IU/L (46-116); ANION GAP 0 (8-16); ASPARTATE AMINO TRANSFERASE 27 U/L (10-37); BILIRUBIN,TOTAL 0.5 MG/DL (0.1-1.0); BLOOD UREA NITROGEN 70 MG/DL (7-18); BUN/CREATININE RATIO 78.7 (5.4-32.0); C-REACTIVE PROTEIN 1.64 MG/DL (0.0-0.5); CALCIUM 7.8 MG/DL (8.5-10.1); CHLORIDE 101 MMOL/L (99-107); CREATININE 0.89 MG/DL (0.60-1.10); GLUCOSE 103 MG/DL (70-104); MAGNESIUM 2.4 MG/DL (1.5-2.4); PHOSPHORUS 5.3 MG/DL (2.3-4.5); PREALBUMIN 41.2 MG/DL (19-36); SODIUM 143 MMOL/L (135-145); TOTAL PROTEIN 5.2 G/DL (6.4-8.2); TRIGLYCERIDES 81 MG/DL (20-135); eGFR 85 ML/MIN
[2021-02-28 03:53] LABS: TOTAL CARBON DIOXIDE 42.2 MMOL/L (24-32)
[2021-02-28] MEDS: CISatracurium besylate 100 MG in NS 100ml IV IV PRN ×5 (04:51→21:48)
--- NOTE | 2021-02-28 06:15 | NUR ---
Problems reprioritized. Patient report given, questions answered & plan of care reviewed with MAYELIN Wilder.
[2021-02-28] MEDS: methylPREDNISolone sod succ/PF 40mg inj. IV SCH ×2 (07:37→19:20)
[2021-02-28] MEDS: pantoprazole 40 MG vial IV SCH (07:38)
[2021-02-28] MEDS: lactobacillus rhamnosus 10,000 MMU CELLS/CAPSULE PO SCH ×2 (07:38→19:21)
[2021-02-28] MEDS: spironolactone 25 MG tablet OGT SCH ×3 (07:38→20:36)
[2021-02-28] MEDS: enoxaparin 100mg/ml syringe SUBCUT SCH ×2 (07:39→19:21)
[2021-02-28] MEDS: K and/or MAG REPLACEMENT MC SCH ×2 (08:00→19:21)
--- NOTE | 2021-02-28 18:20 | NUR ---
Patient in room CICU 2010. I have received report from MAYELIN Wilder and had the opportunity to ask questions and assume patient care.
[2021-02-28] MEDS: propofol 1000mg/100ml bottle 100 ML IV SCH (19:22)
[2021-02-28] MEDS: insulin glargine (Lantus) pen - multi-dose SQ SCH (19:50)
--- NOTE | 2021-02-28 20:22 | NUR ---
Patients brother, Taz, called for an update.
[2021-02-28] MEDS: polyethylene glycol 3350 17gm powd pack OGT SCH (20:36)
--- NOTE | 2021-02-28 21:00 | NUR ---
Patients , Amy, called for an update. Room phone held to patients ear so she could speak to him.
--- NOTE | 2021-02-28 23:30 | NUR ---
[id number] Patient supine. Placed on 100% FiO2. Patient desaturating to 87-88%, PAC's noted on ECG. Sinus bradycardia with a rate in the 50's. Patient with short burst of tachycardia. Patient re secured to rotoprone bed and placed prone. Once prone oxygen saturation increased to 96%, FiO2 gradually titrated back down. Ectopy resolved.
[2021-03-01] VITALS (24 sets, daily range): BP systolic 111–141; BP diastolic 36–63
[2021-03-01] MEDS: NORepinephrine 8mg/ 250ml NS 250 ML IV SCH (01:14)
[2021-03-01] MEDS: insulin regular, human U-100 3ml vial - multi-dose SQ SCH ×4 (01:48→20:34)
[2021-03-01] MEDS: mineral oil/petrolatum ophthal oint EACHEYE SCH ×5 (01:54→20:00)
[2021-03-01] MEDS: furosemide 40mg/4ml inj IV SCH ×4 (01:54→20:05)
[2021-03-01] MEDS: FENTANYL 1000MCG/NS 100 ML BAG /PF IV PRN ×6 (01:59→22:51)
[2021-03-01] MEDS: CISatracurium besylate 100 MG in NS 100ml IV IV PRN ×4 (03:26→21:43)
[2021-03-01 03:49] LABS: BASOPHILS # (AUTO) 0.1 X10'3 (0-0.2); BASOPHILS % (AUTO) 0.6 % (0-1); EOSINOPHILS # (AUTO) 0.1 X10'3 (0-0.9); EOSINOPHILS % (AUTO) 0.5 % (0-6); HEMATOCRIT 32.6 % (42.0-52.0); HEMOGLOBIN 10.6 g/dl (14.0-17.9); LYMPHOCYTES # (AUTO) 0.6 X10'3 (1.1-4.8); LYMPHOCYTES % (AUTO) 4.1 % (21-51); MEAN CORPUSCULAR HEMOGLOBIN 27.2 PG (27.0-31.0); MEAN CORPUSCULAR HGB CONC 32.6 g/dL (33.0-36.5); MEAN CORPUSCULAR VOLUME 83.6 FL (78-98); MEAN PLATELET VOLUME 9.4 FL (7.4-10.4); MONOCYTES # (AUTO) 0.5 X10'3 (0-0.9); MONOCYTES % (AUTO) 3.3 % (2-12); NEUTROPHILS # (AUTO) 12.8 X10'3 (1.8-7.7); NEUTROPHILS % (AUTO) 91.5 % (42-75); PLATELET COUNT 287 X10'3 (140-440); RED CELL DISTRIBUTION WIDTH 15.5 % (11.5-14.5)
[2021-03-01 04:04] LABS: ABG BASE EXCESS 18.8 mmol/L (-2.0-2.0); ABG OXYGEN SATURATION 96.1 % (94-97); ABG PCO2 (T) 59.2 mmHg (35.0-48.0); ALLEN'S TEST POSITIVE; FCOHb 0.6 % (0.0-3.9); FMetHb 0.2 % (0.0-1.5); FO2Hb 95.3 % (94-97); PATIENT TEMPERATURE 36.9; PEEP 10 cm H2O; RESPIRATORY RATE 18 b/min; TIDAL VOLUME 550 mL; TOTAL HEMOGLOBIN 12.1 G/dl (14.0-18.0)
[2021-03-01 04:08] LABS: ALANINE AMINOTRANSFERASE 75 U/L (12-78); ALBUMIN 1.7 G/DL (3.4-5.0); ALBUMIN/GLOBULIN RATIO 0.5 (1.1-1.5); ALKALINE PHOSPHATASE 78 IU/L (46-116); ANION GAP 0 (8-16); ASPARTATE AMINO TRANSFERASE 31 U/L (10-37); BILIRUBIN,TOTAL 0.5 MG/DL (0.1-1.0); BLOOD UREA NITROGEN 71 MG/DL (7-18); BUN/CREATININE RATIO 85.5 (5.4-32.0); C-REACTIVE PROTEIN 1.71 MG/DL (0.0-0.5); CALCIUM 7.9 MG/DL (8.5-10.1); CHLORIDE 102 MMOL/L (99-107); CREATININE 0.83 MG/DL (0.60-1.10); GLUCOSE 103 MG/DL (70-104); MAGNESIUM 2.5 MG/DL (1.5-2.4); PHOSPHORUS 4.9 MG/DL (2.3-4.5); POTASSIUM 4.3 MMOL/L (3.5-5.1); SODIUM 145 MMOL/L (135-145); TOTAL PROTEIN 5.3 G/DL (6.4-8.2); TRIGLYCERIDES 74 MG/DL (20-135); eGFR > 90 ML/MIN
[2021-03-01 04:10] LABS: PARTIAL THROMBOPLASTIN TIME 27 SECONDS (22-32)
[2021-03-01 04:12] LABS: TOTAL CARBON DIOXIDE 42.9 MMOL/L (24-32)
--- NOTE | 2021-03-01 04:22 | NUR ---
Critical lab CO2 42.9 attempted to be called to Dr. Winston, no answer, voicemail is full.
[2021-03-01 05:01] LABS: D-DIMER 2.76 MG/L FEU (0-0.50)
[2021-03-01] MEDS: midazolam 100mg in NS 100ml 100 ML IV PRN ×3 (05:59→21:21)
--- NOTE | 2021-03-01 06:13 | NUR ---
Problems reprioritized. Patient report given, questions answered & plan of care reviewed with MAYELIN Wilder.
[2021-03-01] MEDS: methylPREDNISolone sod succ/PF 40mg inj. IV SCH ×2 (07:34→20:04)
[2021-03-01] MEDS: enoxaparin 100mg/ml syringe SUBCUT SCH ×2 (07:34→20:05)
[2021-03-01] MEDS: lactobacillus rhamnosus 10,000 MMU CELLS/CAPSULE PO SCH (07:34)
[2021-03-01] MEDS: pantoprazole 40 MG vial IV SCH (07:34)
[2021-03-01] MEDS: spironolactone 25 MG tablet OGT SCH (07:35)
[2021-03-01] MEDS: K and/or MAG REPLACEMENT MC SCH ×2 (08:00→20:00)
--- NOTE | 2021-03-01 15:02 | NUR ---
Reassessment: Pt remains intubated, now on rotoprone bed, and tolerating TF at goal rate with GRV WNL. Noted pt no longer receiving Propofol, recommend resuming initial TF recommendations with Vital AF at 85 mL/hr, d/w RN. FIGUEROA 03/01. Will continue to follow closely. Rec: 1) Continuous Vital AF with goal rate of 85 mL/hr to provide 2040 mL total volume/day, 2448 kcal, 153 g protein, and 1654 mL water 2) Additional 100 mL water flush Q4H; monitor serum Na 3) Prealbumin q Sunday/; daily scaled weights 4) Routine bowel care 5) Monitor Propofol rate and adjust recommendations as appropriately, currently not receiving Propofol Addendum: 03/01/21 at [address] Amended: Links added.
--- NOTE | 2021-03-01 18:20 | NUR ---
Patient in room CICU 2010. I have received report from Tina DICK and had the opportunity to ask questions and assume patient care.
[2021-03-01] MEDS: lactobacillus rhamnosus 10,000 MMU CELLS/CAPSULE OGT SCH (20:03)
[2021-03-01] MEDS: acetaZOLAMIDE IV 500mg inj IV SCH (20:03)
[2021-03-01] MEDS: polyethylene glycol 3350 17gm powd pack OGT SCH (20:06)
[2021-03-01] MEDS: insulin glargine (Lantus) pen - multi-dose SQ SCH (20:33)
--- NOTE | 2021-03-01 21:30 | NUR ---
Patients Amy, called for an update. Call transferred to PT room and phone held to patients ear so she could speak to him.
[2021-03-02] VITALS (23 sets, daily range): BP systolic 80–137; BP diastolic 29–79
--- NOTE | 2021-03-02 00:25 | NUR ---
PT was in Supine position for 1HR. PT initially placed on 100% FiO2 and titrated down to 85% as PT tolerated. RT changed ETT securement d/t it being soiled. ETT advanced and now measuring 24@ teeth. PT's mouth is bloody with clots noted coating tongue, oral care complete along with oral suctioning in attempt to clear the clots. PT tolerated being supine, O2 sat remained >90% on 85% FiO2. Pads placed and secure. PT placed back in Prone position. Will continue to monitor.
[2021-03-02] MEDS: furosemide 40mg/4ml inj IV SCH ×3 (02:07→14:34)
[2021-03-02] MEDS: mineral oil/petrolatum ophthal oint EACHEYE SCH ×4 (02:07→20:00)
[2021-03-02] MEDS: CISatracurium besylate 100 MG in NS 100ml IV IV PRN ×5 (02:07→22:14)
[2021-03-02] MEDS: FENTANYL 1000MCG/NS 100 ML BAG /PF IV PRN ×4 (02:08→20:50)
[2021-03-02] MEDS: insulin regular, human U-100 3ml vial - multi-dose SQ SCH ×4 (02:09→20:40)
[2021-03-02] MEDS: propofol 1000mg/100ml bottle 100 ML IV SCH (02:54)
[2021-03-02 03:29] LABS: BASOPHILS # (AUTO) 0.1 X10'3 (0-0.2); BASOPHILS % (AUTO) 0.4 % (0-1); EOSINOPHILS # (AUTO) 0.2 X10'3 (0-0.9); EOSINOPHILS % (AUTO) 1.7 % (0-6); HEMATOCRIT 36.7 % (42.0-52.0); HEMOGLOBIN 11.5 g/dl (14.0-17.9); LYMPHOCYTES # (AUTO) 0.6 X10'3 (1.1-4.8); LYMPHOCYTES % (AUTO) 4.3 % (21-51); MEAN CORPUSCULAR HGB CONC 31.2 g/dL (33.0-36.5); MEAN CORPUSCULAR VOLUME 86.6 FL (78-98); MEAN PLATELET VOLUME 9.7 FL (7.4-10.4); MONOCYTES # (AUTO) 0.5 X10'3 (0-0.9); MONOCYTES % (AUTO) 3.6 % (2-12); NEUTROPHILS # (AUTO) 12.1 X10'3 (1.8-7.7); PLATELET COUNT 286 X10'3 (140-440); RED BLOOD COUNT 4.24 X10'6 (4.70-6.10); RED CELL DISTRIBUTION WIDTH 15.6 % (11.5-14.5); WHITE BLOOD COUNT 13.5 X10'3 (4.5-11.0)
[2021-03-02] MEDS: midazolam 100mg in NS 100ml 100 ML IV PRN ×5 (03:32→20:36)
[2021-03-02 03:43] LABS: D-DIMER 2.17 MG/L FEU (0-0.50); PARTIAL THROMBOPLASTIN TIME 27 SECONDS (22-32)
[2021-03-02 03:47] LABS: ABG BASE EXCESS 12.8 mmol/L (-2.0-2.0); ABG OXYGEN SATURATION 94.7 % (94-97); ABG PCO2 (T) 65.9 mmHg (35.0-48.0); ABG PO2 (T) 78.6 mmHg (75.0-100.0); FCOHb 0.7 % (0.0-3.9); FMetHb 0.1 % (0.0-1.5); FO2Hb 93.9 % (94-97); PATIENT TEMPERATURE 37.6; PEEP 10 cm H2O; RESPIRATORY RATE 16 b/min; TIDAL VOLUME 550 mL; TOTAL HEMOGLOBIN 12.5 G/dl (14.0-18.0)
[2021-03-02 03:55] LABS: ALANINE AMINOTRANSFERASE 75 U/L (12-78); ALBUMIN 1.8 G/DL (3.4-5.0); ALBUMIN/GLOBULIN RATIO 0.5 (1.1-1.5); ALKALINE PHOSPHATASE 85 IU/L (46-116); ANION GAP 3 (8-16); ASPARTATE AMINO TRANSFERASE 32 U/L (10-37); BILIRUBIN,TOTAL 0.6 MG/DL (0.1-1.0); BLOOD UREA NITROGEN 72 MG/DL (7-18); BUN/CREATININE RATIO 80.9 (5.4-32.0); C-REACTIVE PROTEIN 2.23 MG/DL (0.0-0.5); CALCIUM 8.2 MG/DL (8.5-10.1); CHLORIDE 102 MMOL/L (99-107); CREATININE 0.89 MG/DL (0.60-1.10); GLUCOSE 145 MG/DL (70-104); MAGNESIUM 2.6 MG/DL (1.5-2.4); PHOSPHORUS 4.7 MG/DL (2.3-4.5); POTASSIUM 4.4 MMOL/L (3.5-5.1); SODIUM 145 MMOL/L (135-145); TOTAL PROTEIN 5.8 G/DL (6.4-8.2); TRIGLYCERIDES 66 MG/DL (20-135); eGFR 85 ML/MIN
[2021-03-02 03:57] LABS: TOTAL CARBON DIOXIDE 40.5 MMOL/L (24-32)
[2021-03-02 04:43] LABS: BANDS% (MANUAL) 1 % (0-10); LYMPHOCYTES % (MANUAL) 7 % (21-51); METAMYLEOCYTES% (MANUAL) 2 % (0-0); MONOCYTES % (MANUAL) 3 % (2-12); MYELOCYTES % (MANUAL) 2 % (0-0); NEUTROPHILS % (MANUAL) 85 % (42-75); PLATELET ESTIMATE NORMAL; TOTAL CELLS COUNTED 100
--- NOTE | 2021-03-02 06:30 | NUR ---
Received report from MAYELIN Copeland
--- NOTE | 2021-03-02 06:34 | NUR ---
Problems reprioritized. Patient report given, questions answered & plan of care reviewed with Dena DICK.
[2021-03-02] MEDS: methylPREDNISolone sod succ/PF 40mg inj. IV SCH ×2 (07:50→20:36)
[2021-03-02] MEDS: pantoprazole 40 MG vial IV SCH (07:50)
[2021-03-02] MEDS: acetaZOLAMIDE IV 500mg inj IV SCH ×2 (07:50→20:36)
[2021-03-02] MEDS: lactobacillus rhamnosus 10,000 MMU CELLS/CAPSULE OGT SCH ×2 (07:50→20:36)
[2021-03-02] MEDS: enoxaparin 100mg/ml syringe SUBCUT SCH ×2 (07:51→19:28)
[2021-03-02] MEDS: K and/or MAG REPLACEMENT MC SCH ×2 (08:00→20:00)
[2021-03-02] MEDS ORDERED: normal saline 1000ml 1,000 ML IV ONE ×2 (17:55→18:15)
[2021-03-02] MEDS ORDERED: NORepinephrine 8mg/ 250ml NS 250 ML IV ONE (18:21)
--- NOTE | 2021-03-02 18:44 | NUR ---
Report given to MAYELIN Copeland.
[2021-03-02 18:45] LABS: BASOPHILS % (AUTO) 0.1 % (0-1); EOSINOPHILS # (AUTO) 0.1 X10'3 (0-0.9); EOSINOPHILS % (AUTO) 0.5 % (0-6); HEMATOCRIT 32.6 % (42.0-52.0); HEMOGLOBIN 10.4 g/dl (14.0-17.9); LYMPHOCYTES # (AUTO) 0.5 X10'3 (1.1-4.8); LYMPHOCYTES % (AUTO) 4.2 % (21-51); MEAN CORPUSCULAR HEMOGLOBIN 27.1 PG (27.0-31.0); MEAN CORPUSCULAR VOLUME 84.7 FL (78-98); MEAN PLATELET VOLUME 9.1 FL (7.4-10.4); MONOCYTES # (AUTO) 0.3 X10'3 (0-0.9); MONOCYTES % (AUTO) 2.8 % (2-12); NEUTROPHILS # (AUTO) 10.5 X10'3 (1.8-7.7); NEUTROPHILS % (AUTO) 92.4 % (42-75); PLATELET COUNT 248 X10'3 (140-440); RED BLOOD COUNT 3.85 X10'6 (4.70-6.10); RED CELL DISTRIBUTION WIDTH 16.1 % (11.5-14.5); WHITE BLOOD COUNT 11.4 X10'3 (4.5-11.0)
--- NOTE | 2021-03-02 18:50 | NUR ---
Patient in room CICU 2010. I have received report from Dena DICK and had the opportunity to ask questions and assume patient care. PT was having decreased BP and order was received on previous shift for 2L fluid bolus, 1st finished and 2nd started as report given. Levo also started at low dose and will titrate accordingly. Lab collected and send, awaiting results. PT has been bleeding from mouth, nose and now is having a small amount of bleeding from rectum around the rectal tube, there is not any blood noted in the rectal tubing or stool at this time. BP is trending up. PT is intubated and tolerating mechanical vent settings, O2 sat >92% on 60% FiO2. PT is on rotoprone bed in prone position PT and lines are secure. Will continue to monitor
[2021-03-02 18:57] LABS: ALANINE AMINOTRANSFERASE 59 U/L (12-78); ALBUMIN 1.7 G/DL (3.4-5.0); ALBUMIN/GLOBULIN RATIO 0.5 (1.1-1.5); ALKALINE PHOSPHATASE 78 IU/L (46-116); ANION GAP 0 (8-16); ASPARTATE AMINO TRANSFERASE 26 U/L (10-37); BILIRUBIN,TOTAL 0.4 MG/DL (0.1-1.0); BLOOD UREA NITROGEN 71 MG/DL (7-18); CALCIUM 7.7 MG/DL (8.5-10.1); CHLORIDE 108 MMOL/L (99-107); CREATININE 0.78 MG/DL (0.60-1.10); GLUCOSE 67 MG/DL (70-104); SODIUM 145 MMOL/L (135-145); TOTAL CARBON DIOXIDE 37.2 MMOL/L (24-32); TOTAL PROTEIN 5.3 G/DL (6.4-8.2); eGFR > 90 ML/MIN
[2021-03-02 18:58] LABS: PARTIAL THROMBOPLASTIN TIME 27 SECONDS (22-32)
[2021-03-02] MEDS: normal saline 1000ml 1,000 ML IV SCH (19:10)
[2021-03-02] MEDS: NORepinephrine 8mg/ 250ml NS 250 ML IV SCH (19:13)
[2021-03-02] MEDS: polyethylene glycol 3350 17gm powd pack OGT SCH (20:36)
[2021-03-02] MEDS: insulin glargine (Lantus) pen - multi-dose SQ SCH (20:41)
[2021-03-03] VITALS (24 sets, daily range): BP systolic 113–141; BP diastolic 38–80
[2021-03-03] MEDS: mineral oil/petrolatum ophthal oint EACHEYE SCH ×4 (02:00→20:00)
[2021-03-03 02:53] LABS: BASOPHILS # (AUTO) 0.1 X10'3 (0-0.2); BASOPHILS % (AUTO) 0.4 % (0-1); EOSINOPHILS # (AUTO) 0.1 X10'3 (0-0.9); EOSINOPHILS % (AUTO) 0.9 % (0-6); HEMATOCRIT 35.7 % (42.0-52.0); HEMOGLOBIN 11.1 g/dl (14.0-17.9); LYMPHOCYTES # (AUTO) 0.5 X10'3 (1.1-4.8); LYMPHOCYTES % (AUTO) 3.5 % (21-51); MEAN CORPUSCULAR HEMOGLOBIN 27.1 PG (27.0-31.0); MEAN CORPUSCULAR HGB CONC 31.1 g/dL (33.0-36.5); MEAN PLATELET VOLUME 9.6 FL (7.4-10.4); MONOCYTES # (AUTO) 0.4 X10'3 (0-0.9); MONOCYTES % (AUTO) 3.1 % (2-12); NEUTROPHILS # (AUTO) 11.8 X10'3 (1.8-7.7); NEUTROPHILS % (AUTO) 92.1 % (42-75); PLATELET COUNT 292 X10'3 (140-440); RED CELL DISTRIBUTION WIDTH 16.7 % (11.5-14.5); WHITE BLOOD COUNT 12.8 X10'3 (4.5-11.0)
[2021-03-03 03:03] LABS: PARTIAL THROMBOPLASTIN TIME 27 SECONDS (22-32)
[2021-03-03 03:09] LABS: ALANINE AMINOTRANSFERASE 62 U/L (12-78); ALBUMIN 1.8 G/DL (3.4-5.0); ALBUMIN/GLOBULIN RATIO 0.5 (1.1-1.5); ALKALINE PHOSPHATASE 86 IU/L (46-116); ANION GAP 2 (8-16); ASPARTATE AMINO TRANSFERASE 22 U/L (10-37); BILIRUBIN,TOTAL 0.5 MG/DL (0.1-1.0); BLOOD UREA NITROGEN 68 MG/DL (7-18); BUN/CREATININE RATIO 87.2 (5.4-32.0); CALCIUM 7.8 MG/DL (8.5-10.1); CHLORIDE 109 MMOL/L (99-107); CREATININE 0.78 MG/DL (0.60-1.10); GLUCOSE 167 MG/DL (70-104); MAGNESIUM 2.5 MG/DL (1.5-2.4); PHOSPHORUS 4.1 MG/DL (2.3-4.5); POTASSIUM 4.3 MMOL/L (3.5-5.1); SODIUM 145 MMOL/L (135-145); TOTAL CARBON DIOXIDE 34.3 MMOL/L (24-32); TOTAL PROTEIN 5.7 G/DL (6.4-8.2); TRIGLYCERIDES 72 MG/DL (20-135); eGFR > 90 ML/MIN
[2021-03-03] MEDS: FENTANYL 1000MCG/NS 100 ML BAG /PF IV PRN ×7 (03:10→22:55)
[2021-03-03] MEDS: midazolam 100mg in NS 100ml 100 ML IV PRN ×4 (03:11→18:51)
[2021-03-03] MEDS: CISatracurium besylate 100 MG in NS 100ml IV IV PRN ×5 (03:11→20:41)
[2021-03-03] MEDS: insulin regular, human U-100 3ml vial - multi-dose SQ SCH ×4 (03:16→21:20)
[2021-03-03 04:27] LABS: ABG BASE EXCESS 8.8 mmol/L (-2.0-2.0); ABG HCO3 38.4 mmol/L (22.0-26.0); ABG OXYGEN SATURATION 94.8 % (94-97); ABG PCO2 (T) 79.1 mmHg (35.0-48.0); ABG PO2 (T) 79.6 mmHg (75.0-100.0); FCOHb 1.1 % (0.0-3.9); FMetHb 0.1 % (0.0-1.5); FO2Hb 93.7 % (94-97); PATIENT TEMPERATURE 36.6; PEEP 10 cm H2O; RESPIRATORY RATE 16 b/min; TIDAL VOLUME 550 mL; TOTAL HEMOGLOBIN 13.2 G/dl (14.0-18.0)
--- NOTE | 2021-03-03 06:22 | NUR ---
Problems reprioritized. Patient report given, questions answered & plan of care reviewed with Sari DICK.
[2021-03-03] MEDS: NORepinephrine 8mg/ 250ml NS 250 ML IV SCH ×2 (06:33→22:07)
[2021-03-03] MEDS: normal saline 1000ml 1,000 ML IV SCH ×2 (07:30→20:11)
[2021-03-03] MEDS: enoxaparin 100mg/ml syringe SUBCUT SCH ×2 (07:30→20:08)
[2021-03-03] MEDS: lactobacillus rhamnosus 10,000 MMU CELLS/CAPSULE OGT SCH ×2 (07:32→20:10)
[2021-03-03] MEDS: pantoprazole 40 MG vial IV SCH (07:32)
[2021-03-03] MEDS: acetaZOLAMIDE IV 500mg inj IV SCH ×2 (07:32→20:10)
[2021-03-03] MEDS: methylPREDNISolone sod succ/PF 40mg inj. IV SCH ×2 (07:32→20:09)
[2021-03-03] MEDS: K and/or MAG REPLACEMENT MC SCH ×2 (08:00→20:00)
--- NOTE | 2021-03-03 10:48 | NUR ---
pt supined for approx 30 miutes to provide oral care and TOF
--- NOTE | 2021-03-03 18:15 | NUR ---
Patient in room CICU 2010. I have received report from Sari DICK and had the opportunity to ask questions and assume patient care.
[2021-03-03] MEDS: polyethylene glycol 3350 17gm powd pack OGT SCH (20:08)
[2021-03-03] MEDS: insulin glargine (Lantus) pen - multi-dose SQ SCH (21:21)
[2021-03-04] VITALS (24 sets, daily range): BP systolic 113–154; BP diastolic 38–60
[2021-03-04] MEDS: midazolam 100mg in NS 100ml 100 ML IV PRN ×5 (00:08→20:35)
[2021-03-04] MEDS: CISatracurium besylate 100 MG in NS 100ml IV IV PRN ×2 (01:56→06:40)
[2021-03-04] MEDS: insulin regular, human U-100 3ml vial - multi-dose SQ SCH ×4 (02:19→22:30)
[2021-03-04] MEDS: FENTANYL 1000MCG/NS 100 ML BAG /PF IV PRN ×7 (02:23→23:16)
[2021-03-04 03:24] LABS: BASOPHILS % (AUTO) 0.4 % (0-1); EOSINOPHILS # (AUTO) 0.2 X10'3 (0-0.9); EOSINOPHILS % (AUTO) 1.4 % (0-6); HEMATOCRIT 33.6 % (42.0-52.0); HEMOGLOBIN 10.5 g/dl (14.0-17.9); LYMPHOCYTES # (AUTO) 0.5 X10'3 (1.1-4.8); LYMPHOCYTES % (AUTO) 4.2 % (21-51); MEAN CORPUSCULAR HEMOGLOBIN 27.8 PG (27.0-31.0); MEAN CORPUSCULAR HGB CONC 31.4 g/dL (33.0-36.5); MEAN CORPUSCULAR VOLUME 88.6 FL (78-98); MONOCYTES # (AUTO) 0.5 X10'3 (0-0.9); MONOCYTES % (AUTO) 4.4 % (2-12); NEUTROPHILS # (AUTO) 9.8 X10'3 (1.8-7.7); NEUTROPHILS % (AUTO) 89.6 % (42-75); PLATELET COUNT 267 X10'3 (140-440); RED BLOOD COUNT 3.79 X10'6 (4.70-6.10); RED CELL DISTRIBUTION WIDTH 16.5 % (11.5-14.5)
[2021-03-04 03:46] LABS: PARTIAL THROMBOPLASTIN TIME 28 SECONDS (22-32)
[2021-03-04 03:51] LABS: ALANINE AMINOTRANSFERASE 49 U/L (12-78); ALBUMIN 1.7 G/DL (3.4-5.0); ALBUMIN/GLOBULIN RATIO 0.5 (1.1-1.5); ALKALINE PHOSPHATASE 90 IU/L (46-116); ANION GAP 1 (8-16); ASPARTATE AMINO TRANSFERASE 18 U/L (10-37); BILIRUBIN,TOTAL 0.4 MG/DL (0.1-1.0); BLOOD UREA NITROGEN 55 MG/DL (7-18); BUN/CREATININE RATIO 87.3 (5.4-32.0); CALCIUM 7.9 MG/DL (8.5-10.1); CHLORIDE 113 MMOL/L (99-107); CREATININE 0.63 MG/DL (0.60-1.10); GLUCOSE 127 MG/DL (70-104); MAGNESIUM 2.3 MG/DL (1.5-2.4); PHOSPHORUS 3.4 MG/DL (2.3-4.5); POTASSIUM 4.2 MMOL/L (3.5-5.1); SODIUM 146 MMOL/L (135-145); TOTAL CARBON DIOXIDE 32.4 MMOL/L (24-32); TOTAL PROTEIN 5.4 G/DL (6.4-8.2); eGFR > 90 ML/MIN
[2021-03-04] MEDS: mineral oil/petrolatum ophthal oint EACHEYE SCH ×2 (04:00→20:00)
--- NOTE | 2021-03-04 04:00 | NUR ---
PT was in Supine position for 1HR. PT tolerated being supine, O2 sat remained >90% on 70% FiO2, will titrate back down to 60% when back in prone position. Personal hygiene performed. Pads placed and secure. PT placed back in Prone position. Will continue to monitor.
[2021-03-04 04:43] LABS: ABG HCO3 30.7 mmol/L (22.0-26.0); ABG OXYGEN SATURATION 97.6 % (94-97); ABG PCO2 (T) 69.6 mmHg (35.0-48.0); ABG PO2 (T) 107.3 mmHg (75.0-100.0); FMetHb 0.4 % (0.0-1.5); FO2Hb 97.2 % (94-97); PATIENT TEMPERATURE 36.6; PEEP 10 cm H2O; RESPIRATORY RATE 16 b/min; TIDAL VOLUME 550 mL; TOTAL HEMOGLOBIN 11.4 G/dl (14.0-18.0)
--- NOTE | 2021-03-04 06:16 | NUR ---
PT was in Supine position for 2HR. PT FiO2 remained unchanged @ 60%. O2 sat did trend down slowly to high 80's, FiO2 increased to 70% and O2 sat remained>92%. Pads placed and secure. PT placed back in Prone position. Will continue to monitor. Addendum: 03/04/21 at 0637 by Dinorah Menendez RN PT supined from 2215 to 0015
--- NOTE | 2021-03-04 06:37 | NUR ---
Problems reprioritized. Patient report given, questions answered & plan of care reviewed with Sari DICK.
[2021-03-04] MEDS: pantoprazole 40 MG vial IV SCH (07:41)
[2021-03-04] MEDS: methylPREDNISolone sod succ/PF 40mg inj. IV SCH ×2 (07:41→22:39)
[2021-03-04] MEDS: enoxaparin 100mg/ml syringe SUBCUT SCH ×2 (07:41→22:39)
[2021-03-04] MEDS: lactobacillus rhamnosus 10,000 MMU CELLS/CAPSULE OGT SCH ×2 (07:41→20:00)
[2021-03-04] MEDS: acetaZOLAMIDE IV 500mg inj IV SCH (07:41)
--- NOTE | 2021-03-04 09:15 | NUR ---
pt placed supine. rotation set to 40 degrees in reverse trendelenberg
[2021-03-04] MEDS: normal saline 1000ml 1,000 ML IV SCH ×2 (09:48→23:35)
--- NOTE | 2021-03-04 11:52 | NUR ---
Reassessment: Pt remains intubated on rotoprone bed and tolerating TF at goal rate with GRV WNL. LBM 03/04 documented with 550 mL stool output from rectal tube per I&O. Pt continues receiving routine Miralax. No changes to nutrition recommendations at this time. Will continue to follow. Rec: 1) Continuous Vital AF with goal rate of 85 mL/hr to provide 2040 mL total volume/day, 2448 kcal, 153 g protein, and 1654 mL water 2) Additional 100 mL water flush Q4H; monitor serum Na 3) Prealbumin q Sunday/; daily scaled weights 4) Routine bowel care 5) Monitor Propofol rate and adjust recommendations as appropriately, currently not receiving Propofol Addendum: 03/04/21 at [address] Amended: Links added.
[2021-03-04 13:30] LABS: D-DIMER 1.52 MG/L FEU (0-0.50)
--- NOTE | 2021-03-04 19:00 | NUR ---
Patient in room CICU 2010. I have received report from Nuzhat DICK and had the opportunity to ask questions and assume patient care.
[2021-03-04] MEDS: NORepinephrine 8mg/ 250ml NS 250 ML IV SCH (19:27)
[2021-03-04] MEDS: K and/or MAG REPLACEMENT MC SCH (20:00)
[2021-03-04] MEDS: insulin glargine (Lantus) pen - multi-dose SQ SCH (22:32)
[2021-03-04] MEDS: polyethylene glycol 3350 17gm powd pack OGT SCH (22:39)
[2021-03-05] VITALS (18 sets, daily range): BP systolic 109–174; BP diastolic 35–104
[2021-03-05] MEDS: mineral oil/petrolatum ophthal oint EACHEYE SCH ×3 (02:00→20:00)
[2021-03-05 03:10] LABS: BASOPHILS % (AUTO) 0.3 % (0-1); EOSINOPHILS # (AUTO) 0.3 X10'3 (0-0.9); EOSINOPHILS % (AUTO) 2.2 % (0-6); HEMATOCRIT 35.8 % (42.0-52.0); LYMPHOCYTES # (AUTO) 0.6 X10'3 (1.1-4.8); LYMPHOCYTES % (AUTO) 4.6 % (21-51); MEAN CORPUSCULAR HEMOGLOBIN 27.5 PG (27.0-31.0); MEAN CORPUSCULAR HGB CONC 30.9 g/dL (33.0-36.5); MEAN PLATELET VOLUME 8.8 FL (7.4-10.4); MONOCYTES # (AUTO) 0.8 X10'3 (0-0.9); MONOCYTES % (AUTO) 5.8 % (2-12); NEUTROPHILS # (AUTO) 11.6 X10'3 (1.8-7.7); NEUTROPHILS % (AUTO) 87.1 % (42-75); PLATELET COUNT 284 X10'3 (140-440); RED BLOOD COUNT 4.02 X10'6 (4.70-6.10); RED CELL DISTRIBUTION WIDTH 17.7 % (11.5-14.5); WHITE BLOOD COUNT 13.4 X10'3 (4.5-11.0)
[2021-03-05 03:13] LABS: PARTIAL THROMBOPLASTIN TIME 28 SECONDS (22-32)
[2021-03-05 03:16] LABS: ALANINE AMINOTRANSFERASE 60 U/L (12-78); ALBUMIN 1.8 G/DL (3.4-5.0); ALBUMIN/GLOBULIN RATIO 0.5 (1.1-1.5); ALKALINE PHOSPHATASE 114 IU/L (46-116); ANION GAP -1 (8-16); ASPARTATE AMINO TRANSFERASE 26 U/L (10-37); BILIRUBIN,TOTAL 0.4 MG/DL (0.1-1.0); BLOOD UREA NITROGEN 52 MG/DL (7-18); BUN/CREATININE RATIO 85.2 (5.4-32.0); C-REACTIVE PROTEIN 1.71 MG/DL (0.0-0.5); CALCIUM 8.1 MG/DL (8.5-10.1); CHLORIDE 113 MMOL/L (99-107); CREATININE 0.61 MG/DL (0.60-1.10); GLUCOSE 120 MG/DL (70-104); MAGNESIUM 2.4 MG/DL (1.5-2.4); PHOSPHORUS 3.7 MG/DL (2.3-4.5); POTASSIUM 4.5 MMOL/L (3.5-5.1); SODIUM 143 MMOL/L (135-145); TOTAL CARBON DIOXIDE 31.3 MMOL/L (24-32); TOTAL PROTEIN 5.8 G/DL (6.4-8.2); eGFR > 90 ML/MIN
[2021-03-05 04:13] LABS: ABG BASE EXCESS 2.8 mmol/L (-2.0-2.0); ABG HCO3 32.8 mmol/L (22.0-26.0); ABG OXYGEN SATURATION 91.7 % (94-97); ABG PO2 (T) 61.8 mmHg (75.0-100.0); FCOHb 0.3 % (0.0-3.9); FMetHb 0.1 % (0.0-1.5); FO2Hb 91.3 % (94-97); PATIENT TEMPERATURE 36.9; PEEP 10 cm H2O; RESPIRATORY RATE 16 b/min; TIDAL VOLUME 500 mL; TOTAL HEMOGLOBIN 11.8 G/dl (14.0-18.0)
[2021-03-05] MEDS ORDERED: furosemide 40mg/4ml inj IV ONE (04:20)
[2021-03-05] MEDS: FENTANYL 1000MCG/NS 100 ML BAG /PF IV PRN ×5 (05:37→23:05)
[2021-03-05 05:45] LABS: ANISOCYTOSIS 1+; ELLIPTOCYTES FEW; PLATELET ESTIMATE NORMAL; TEAR DROP CELLS FEW; TOTAL CELLS COUNTED 100
[2021-03-05 05:46] LABS: SCHISTOCYTES FEW
[2021-03-05 05:51] LABS: ABG BASE EXCESS 4.7 mmol/L (-2.0-2.0); ABG HCO3 34.2 mmol/L (22.0-26.0); ABG OXYGEN SATURATION 94.4 % (94-97); ABG PCO2 (T) 79.6 mmHg (35.0-48.0); ABG PO2 (T) 69.7 mmHg (75.0-100.0); FCOHb 0.5 % (0.0-3.9); FMetHb 0.3 % (0.0-1.5); FO2Hb 93.6 % (94-97); PEEP 10 cm H2O; RESPIRATORY RATE 20 b/min; TIDAL VOLUME 500 mL
[2021-03-05] MEDS: midazolam 100mg in NS 100ml 100 ML IV PRN ×4 (07:24→22:23)
[2021-03-05] MEDS: pantoprazole 40 MG vial IV SCH (07:44)
[2021-03-05] MEDS: enoxaparin 100mg/ml syringe SUBCUT SCH ×2 (07:44→21:33)
[2021-03-05] MEDS: lactobacillus rhamnosus 10,000 MMU CELLS/CAPSULE OGT SCH ×2 (07:45→21:34)
[2021-03-05] MEDS: methylPREDNISolone sod succ/PF 40mg inj. IV SCH ×2 (07:45→21:36)
[2021-03-05] MEDS: K and/or MAG REPLACEMENT MC SCH ×2 (08:00→20:00)
[2021-03-05] MEDS: insulin regular, human U-100 3ml vial - multi-dose SQ SCH ×2 (08:34→21:26)
--- NOTE | 2021-03-05 10:30 | NUR ---
pt placed supine
[2021-03-05 10:53] LABS: ABG BASE EXCESS 5.3 mmol/L (-2.0-2.0); ABG HCO3 32.5 mmol/L (22.0-26.0); ABG OXYGEN SATURATION 91.8 % (94-97); ALLEN'S TEST POSITIVE; FCOHb 0.3 % (0.0-3.9); FMetHb 0.1 % (0.0-1.5); FO2Hb 91.4 % (94-97); PEEP 10 cm H2O; RESPIRATORY RATE 24 b/min; TOTAL HEMOGLOBIN 10.5 G/dl (14.0-18.0)
--- NOTE | 2021-03-05 13:07 | NUR ---
Patient in room CICU 2010. I have received report from eJssica DICK and had the opportunity to ask questions and assume patient care.
--- NOTE | 2021-03-05 18:09 | NUR ---
1630 pt placed into regular ICU bed. vital signs remained stable. RT maintained the airway
[2021-03-05] MEDS: NORepinephrine 8mg/ 250ml NS 250 ML IV SCH (20:03)
[2021-03-05] MEDS: insulin glargine (Lantus) pen - multi-dose SQ SCH (21:28)
[2021-03-05] MEDS: polyethylene glycol 3350 17gm powd pack OGT SCH (21:36)
[2021-03-06] VITALS (23 sets, daily range): BP systolic 131–218; BP diastolic 54–96
[2021-03-06] MEDS: normal saline 1000ml 1,000 ML IV SCH ×3 (01:07→16:02)
[2021-03-06] MEDS: FENTANYL 1000MCG/NS 100 ML BAG /PF IV PRN ×4 (01:51→10:13)
[2021-03-06] MEDS: mineral oil/petrolatum ophthal oint EACHEYE SCH ×4 (02:23→20:44)
[2021-03-06 02:40] LABS: BASOPHILS % (AUTO) 0.5 % (0-1); EOSINOPHILS # (AUTO) 0.3 X10'3 (0-0.9); EOSINOPHILS % (AUTO) 2.9 % (0-6); HEMATOCRIT 31.8 % (42.0-52.0); HEMOGLOBIN 10.3 g/dl (14.0-17.9); LYMPHOCYTES # (AUTO) 0.3 X10'3 (1.1-4.8); LYMPHOCYTES % (AUTO) 3.3 % (21-51); MEAN CORPUSCULAR HEMOGLOBIN 28.2 PG (27.0-31.0); MEAN CORPUSCULAR HGB CONC 32.5 g/dL (33.0-36.5); MEAN PLATELET VOLUME 8.8 FL (7.4-10.4); MONOCYTES # (AUTO) 0.4 X10'3 (0-0.9); MONOCYTES % (AUTO) 4.2 % (2-12); NEUTROPHILS # (AUTO) 7.7 X10'3 (1.8-7.7); NEUTROPHILS % (AUTO) 89.1 % (42-75); PLATELET COUNT 248 X10'3 (140-440); RED BLOOD COUNT 3.66 X10'6 (4.70-6.10); RED CELL DISTRIBUTION WIDTH 16.9 % (11.5-14.5); WHITE BLOOD COUNT 8.6 X10'3 (4.5-11.0)
[2021-03-06 02:57] LABS: ALANINE AMINOTRANSFERASE 51 U/L (12-78); ALBUMIN 1.5 G/DL (3.4-5.0); ALBUMIN/GLOBULIN RATIO 0.4 (1.1-1.5); ALKALINE PHOSPHATASE 113 IU/L (46-116); ANION GAP 2 (8-16); ASPARTATE AMINO TRANSFERASE 23 U/L (10-37); BILIRUBIN,TOTAL 0.3 MG/DL (0.1-1.0); BLOOD UREA NITROGEN 47 MG/DL (7-18); BUN/CREATININE RATIO 90.4 (5.4-32.0); CALCIUM 8.4 MG/DL (8.5-10.1); CHLORIDE 115 MMOL/L (99-107); CREATININE 0.52 MG/DL (0.60-1.10); GLUCOSE 122 MG/DL (70-104); MAGNESIUM 2.2 MG/DL (1.5-2.4); PHOSPHORUS 2.3 MG/DL (2.3-4.5); POTASSIUM 3.9 MMOL/L (3.5-5.1); SODIUM 150 MMOL/L (135-145); TOTAL CARBON DIOXIDE 33.5 MMOL/L (24-32); TOTAL PROTEIN 5.1 G/DL (6.4-8.2); eGFR > 90 ML/MIN
[2021-03-06 03:33] LABS: ABG BASE EXCESS 7.2 mmol/L (-2.0-2.0); ABG OXYGEN SATURATION 96.4 % (94-97); ABG PCO2 (T) 60.8 mmHg (35.0-48.0); ABG PO2 (T) 83.2 mmHg (75.0-100.0); FMetHb 0.1 % (0.0-1.5); FO2Hb 96.3 % (94-97); PATIENT TEMPERATURE 37.1; PEEP 10 cm H2O; RESPIRATORY RATE 24 b/min; TOTAL HEMOGLOBIN 10.8 G/dl (14.0-18.0)
[2021-03-06] MEDS: midazolam 100mg in NS 100ml 100 ML IV PRN ×3 (05:04→09:08)
[2021-03-06] MEDS: enoxaparin 100mg/ml syringe SUBCUT SCH ×2 (08:00→20:41)
[2021-03-06] MEDS: lactobacillus rhamnosus 10,000 MMU CELLS/CAPSULE OGT SCH ×2 (08:00→20:41)
[2021-03-06] MEDS: pantoprazole 40 MG vial IV SCH (08:00)
[2021-03-06] MEDS: K and/or MAG REPLACEMENT MC SCH ×2 (08:00→20:00)
[2021-03-06] MEDS: methylPREDNISolone sod succ/PF 40mg inj. IV SCH ×2 (08:00→20:41)
[2021-03-06] MEDS: NORepinephrine 8mg/ 250ml NS 250 ML IV SCH ×2 (08:21→20:39)
[2021-03-06] MEDS: insulin regular, human U-100 3ml vial - multi-dose SQ SCH ×3 (09:33→20:53)
[2021-03-06 12:57] LABS: C-REACTIVE PROTEIN 5.08 MG/DL (0.0-0.5)
[2021-03-06] MEDS: hydrALAZINE 20mg/ml inj. IV PRN ×2 (14:37→22:59)
--- NOTE | 2021-03-06 18:41 | NUR ---
Patient in room CICU 2010. I have received report from Skyler DICK and had the opportunity to ask questions and assume patient care.
[2021-03-06] MEDS: polyethylene glycol 3350 17gm powd pack OGT SCH (20:41)
[2021-03-06] MEDS: insulin glargine (Lantus) pen - multi-dose SQ SCH (20:54)
--- NOTE | 2021-03-06 21:37 | NUR ---
Patient overbreathing vent at 39-40 RR. Daytime MD wanted patient to be maintained at lowered rate fentanyl and versed. Called MD Salazar to ask if okay to go up on fentanyl or if she would rather order precedex. MD states to go up on fentanyl to keep patient comfortable, no order for precedex. Will go up on fentanyl as needed and tolerated. Will continue to monitor RR.
[2021-03-07] VITALS (24 sets, daily range): BP systolic 97–199; BP diastolic 49–86
[2021-03-07] MEDS: FENTANYL 1000MCG/NS 100 ML BAG /PF IV PRN ×4 (01:09→23:26)
[2021-03-07] MEDS: propofol 1000mg/100ml bottle 100 ML IV SCH ×2 (01:10→13:33)
[2021-03-07] MEDS: mineral oil/petrolatum ophthal oint EACHEYE SCH ×4 (02:08→20:50)
[2021-03-07] MEDS: insulin regular, human U-100 3ml vial - multi-dose SQ SCH ×2 (02:31→14:02)
[2021-03-07 03:12] LABS: ABG BASE EXCESS 6.4 mmol/L (-2.0-2.0); ABG HCO3 33.9 mmol/L (22.0-26.0); ABG OXYGEN SATURATION 95.4 % (94-97); ABG PCO2 (T) 65.2 mmHg (35.0-48.0); ABG PO2 (T) 82.7 mmHg (75.0-100.0); FCOHb 0.3 % (0.0-3.9); FMetHb 0.3 % (0.0-1.5); FO2Hb 94.8 % (94-97); PATIENT TEMPERATURE 37.6; PEEP 10 cm H2O; RESPIRATORY RATE 24 b/min; TOTAL HEMOGLOBIN 12.1 G/dl (14.0-18.0)
[2021-03-07 03:23] LABS: ALANINE AMINOTRANSFERASE 76 U/L (12-78); ALBUMIN 1.6 G/DL (3.4-5.0); ALBUMIN/GLOBULIN RATIO 0.4 (1.1-1.5); ALKALINE PHOSPHATASE 125 IU/L (46-116); ANION GAP 4 (8-16); ASPARTATE AMINO TRANSFERASE 38 U/L (10-37); BILIRUBIN,TOTAL 0.4 MG/DL (0.1-1.0); BLOOD UREA NITROGEN 43 MG/DL (7-18); BUN/CREATININE RATIO 75.4 (5.4-32.0); C-REACTIVE PROTEIN 7.04 MG/DL (0.0-0.5); CALCIUM 8.6 MG/DL (8.5-10.1); CHLORIDE 113 MMOL/L (99-107); CREATININE 0.57 MG/DL (0.60-1.10); GLUCOSE 114 MG/DL (70-104); MAGNESIUM 2.1 MG/DL (1.5-2.4); POTASSIUM 4.2 MMOL/L (3.5-5.1); SODIUM 148 MMOL/L (135-145); TOTAL CARBON DIOXIDE 30.6 MMOL/L (24-32); TOTAL PROTEIN 5.6 G/DL (6.4-8.2); TRIGLYCERIDES 78 MG/DL (20-135); eGFR > 90 ML/MIN
[2021-03-07 03:32] LABS: BASOPHILS % (AUTO) 0.1 % (0-1); EOSINOPHILS % (AUTO) 0.2 % (0-6); HEMATOCRIT 34.6 % (42.0-52.0); HEMOGLOBIN 11.2 g/dl (14.0-17.9); LYMPHOCYTES # (AUTO) 0.4 X10'3 (1.1-4.8); LYMPHOCYTES % (AUTO) 3.2 % (21-51); MEAN CORPUSCULAR HEMOGLOBIN 27.8 PG (27.0-31.0); MEAN CORPUSCULAR HGB CONC 32.4 g/dL (33.0-36.5); MEAN CORPUSCULAR VOLUME 85.6 FL (78-98); MEAN PLATELET VOLUME 8.9 FL (7.4-10.4); MONOCYTES # (AUTO) 0.6 X10'3 (0-0.9); NEUTROPHILS # (AUTO) 10.1 X10'3 (1.8-7.7); NEUTROPHILS % (AUTO) 91.5 % (42-75); PLATELET COUNT 303 X10'3 (140-440); RED BLOOD COUNT 4.04 X10'6 (4.70-6.10); WHITE BLOOD COUNT 11.1 X10'3 (4.5-11.0)
[2021-03-07] MEDS: normal saline 1000ml 1,000 ML IV SCH (04:43)
--- NOTE | 2021-03-07 06:22 | NUR ---
Patient in room CICU 2010. I have received report from Clarice DICK and had the opportunity to ask questions and assume patient care.
--- NOTE | 2021-03-07 06:24 | NUR ---
Problems reprioritized. Patient report given, questions answered & plan of care reviewed with Claudia DICK.
[2021-03-07] MEDS: pantoprazole 40 MG vial IV SCH (07:24)
[2021-03-07] MEDS: methylPREDNISolone sod succ/PF 40mg inj. IV SCH (07:24)
[2021-03-07] MEDS: enoxaparin 100mg/ml syringe SUBCUT SCH ×3 (07:28→20:50)
[2021-03-07] MEDS: K and/or MAG REPLACEMENT MC SCH ×2 (07:28→20:00)
[2021-03-07] MEDS: lactobacillus rhamnosus 10,000 MMU CELLS/CAPSULE OGT SCH ×2 (07:28→20:50)
--- NOTE | 2021-03-07 07:31 | NUR ---
NOC RN reported pt. was to be trac'd and peg'd today. No orders or notes reflect that. Will hold Lovenox until plan is confirmed.
--- NOTE | 2021-03-07 07:32 | NUR ---
Will not administer Insulin since BG is 74 and pt. may be NPO soon for possible Trach and Peg today.
[2021-03-07] MEDS: hydrALAZINE 20mg/ml inj. IV PRN (08:47)
[2021-03-07] MEDS: NORepinephrine 8mg/ 250ml NS 250 ML IV SCH ×2 (08:57→21:15)
--- NOTE | 2021-03-07 10:31 | NUR ---
Pt. di not tolerate his sedation vacation. HR, BP and RR increased. Pt. did not respond to verbal commands.
--- NOTE | 2021-03-07 15:12 | NUR ---
Awaiting to hear from MRI. MRI screening form faxed shortly after order was placed a while ago.
--- NOTE | 2021-03-07 15:13 | NUR ---
Updated pt's via phone.
[2021-03-07] MEDS: midazolam 100mg in NS 100ml 100 ML IV PRN (15:38)
--- NOTE | 2021-03-07 17:48 | NUR ---
Back from MRI
--- NOTE | 2021-03-07 18:13 | NUR ---
Problems reprioritized. Patient report given, questions answered & plan of care reviewed with Clarice DICK.
--- NOTE | 2021-03-07 18:20 | NUR ---
Patient in room CICU 2010. I have received report from Claudia DICK and had the opportunity to ask questions and assume patient care.
[2021-03-07] MEDS: polyethylene glycol 3350 17gm powd pack OGT SCH (20:50)
[2021-03-07] MEDS: insulin glargine (Lantus) pen - multi-dose SQ SCH (21:00)
[2021-03-08] VITALS (24 sets, daily range): BP systolic 97–160; BP diastolic 49–82
[2021-03-08] MEDS: propofol 1000mg/100ml bottle 100 ML IV SCH ×3 (00:32→22:00)
[2021-03-08] MEDS: mineral oil/petrolatum ophthal oint EACHEYE SCH ×4 (02:13→20:14)
[2021-03-08 03:04] LABS: BASOPHILS # (AUTO) 0.1 X10'3 (0-0.2); BASOPHILS % (AUTO) 0.8 % (0-1); EOSINOPHILS # (AUTO) 0.6 X10'3 (0-0.9); EOSINOPHILS % (AUTO) 6.5 % (0-6); HEMATOCRIT 32.5 % (42.0-52.0); HEMOGLOBIN 10.7 g/dl (14.0-17.9); LYMPHOCYTES # (AUTO) 0.6 X10'3 (1.1-4.8); LYMPHOCYTES % (AUTO) 7.2 % (21-51); MEAN CORPUSCULAR HEMOGLOBIN 28.3 PG (27.0-31.0); MEAN CORPUSCULAR HGB CONC 32.8 g/dL (33.0-36.5); MEAN CORPUSCULAR VOLUME 86.1 FL (78-98); MONOCYTES # (AUTO) 0.5 X10'3 (0-0.9); NEUTROPHILS # (AUTO) 6.9 X10'3 (1.8-7.7); NEUTROPHILS % (AUTO) 79.5 % (42-75); PLATELET COUNT 266 X10'3 (140-440); RED BLOOD COUNT 3.78 X10'6 (4.70-6.10); RED CELL DISTRIBUTION WIDTH 17.9 % (11.5-14.5); WHITE BLOOD COUNT 8.7 X10'3 (4.5-11.0)
[2021-03-08 03:17] LABS: ALANINE AMINOTRANSFERASE 55 U/L (12-78); ALBUMIN 1.5 G/DL (3.4-5.0); ALBUMIN/GLOBULIN RATIO 0.4 (1.1-1.5); ALKALINE PHOSPHATASE 113 IU/L (46-116); ANION GAP 4 (8-16); ASPARTATE AMINO TRANSFERASE 26 U/L (10-37); BILIRUBIN,TOTAL 0.4 MG/DL (0.1-1.0); BLOOD UREA NITROGEN 42 MG/DL (7-18); C-REACTIVE PROTEIN 13.25 MG/DL (0.0-0.5); CHLORIDE 112 MMOL/L (99-107); GLUCOSE 151 MG/DL (70-104); MAGNESIUM 2.1 MG/DL (1.5-2.4); PHOSPHORUS 3.2 MG/DL (2.3-4.5); POTASSIUM 4.1 MMOL/L (3.5-5.1); SODIUM 149 MMOL/L (135-145); TOTAL CARBON DIOXIDE 32.9 MMOL/L (24-32); TOTAL PROTEIN 5.5 G/DL (6.4-8.2); TRIGLYCERIDES 112 MG/DL (20-135); eGFR > 90 ML/MIN
[2021-03-08 03:47] LABS: ABG BASE EXCESS 3.5 mmol/L (-2.0-2.0); ABG OXYGEN SATURATION 94.4 % (94-97); ABG PCO2 (T) 56.2 mmHg (35.0-48.0); ALLEN'S TEST POSITIVE; FCOHb 0.9 % (0.0-3.9); FMetHb 0.1 % (0.0-1.5); FO2Hb 93.5 % (94-97); PATIENT TEMPERATURE 37.6; PEEP 10 cm H2O; RESPIRATORY RATE 24 b/min; TOTAL HEMOGLOBIN 11.6 G/dl (14.0-18.0)
--- NOTE | 2021-03-08 06:14 | NUR ---
Problems reprioritized. Patient report given, questions answered & plan of care reviewed with Claudia DICK.
--- NOTE | 2021-03-08 06:15 | NUR ---
[facility]. I have received report from Clarice DICK and had the opportunity to ask questions and assume patient care. Addendum: 03/08/21 at 0615 by Claudia Stein RN Amended: Links added.
[2021-03-08] MEDS: FENTANYL 1000MCG/NS 100 ML BAG /PF IV PRN ×3 (06:41→19:25)
[2021-03-08] MEDS: insulin regular, human U-100 3ml vial - multi-dose SQ SCH (07:26)
[2021-03-08] MEDS: pantoprazole 40 MG vial IV SCH (07:29)
[2021-03-08] MEDS: lactobacillus rhamnosus 10,000 MMU CELLS/CAPSULE OGT SCH ×2 (07:29→20:00)
[2021-03-08] MEDS: methylPREDNISolone sod succ/PF 40mg inj. IV SCH (07:30)
[2021-03-08] MEDS: K and/or MAG REPLACEMENT MC SCH ×2 (07:34→20:00)
[2021-03-08] MEDS: enoxaparin 100mg/ml syringe SUBCUT SCH ×2 (08:00→20:06)
[2021-03-08 09:47] LABS: D-DIMER 1.85 MG/L FEU (0-0.50)
--- NOTE | 2021-03-08 10:03 | NUR ---
Pt. to get trach and Peg today at bedside per Dr. Sidhu. Supplies gathered and at bedside.
[2021-03-08] MEDS ORDERED: rocuronium 10mg/ml inj IV ONE (10:05)
--- NOTE | 2021-03-08 11:21 | NUR ---
F/u 03/08: Pt TF currently held pending trach and PEG today per scientific investigator; previously tolerating at goal rate GRV WNL. Serum Na 148-150 past 2.5 days receiving 100ml Q4H w/ free water previously on NS. Clinical Pharmacist is agreeable to increase free water at this time; updated recs below. Rectal tube in place -800ml yesterday receiving routine miralax; may benefit from holding given stool volume if MD agreeable. Will continue to monitor for TF tolerance and adjustment needs as medically indicated. Rec: 1) Continuous Vital AF with goal rate of 85 mL/hr to provide 2040 mL total volume/day, 2448 kcal, 153 g protein, and 1654 mL water 2) Additional 200mL water flush Q4H; monitor serum Na 3) Prealbumin q Sunday/; daily scaled weights 4) bowel care per rx; consider holding if high volume stools persist Addendum: 03/08/21 at [address] Amended: Links added.
[2021-03-08] MEDS: lisinopril 5mg tablet PO SCH (11:47)
--- NOTE | 2021-03-08 14:04 | NUR ---
TRACH PLACEMENT WITH DR VILLATORO RT LEANDRA ON SCOPE RT DIRECTOR MURALI HOLDING TUBE. PT DID DESAT TO 86% BRIEFLY BUT RETURNED TO SAT OF 96% 8.0 KEVENED MARY NO INCIDENTS Addendum: 03/08/21 at 1407 by Leandra Grant RT Amended: Links added.
--- NOTE | 2021-03-08 15:29 | NUR ---
Pt. had trach and PEG placed by Dr. Sidhu. Tolerating both procedures well. Pt. was monitored with Q1 minutes vital signs and medications were administered per Dr. Sidhu's verbal orders and under her direct supervision during both procedures. Dr. Sidhu called and notified pt's at the end of procedures. Dressing for PEG placed by Dr. Sidhu and is to not be used until tomorrow at 0800 per her order. Addendum: 03/08/21 at 1535 by Claudia Stein RN Rocuronium was administered in the following doses and times as ordered by Dr. Sidhu: 60 mg @ 1345 10mg @ 1404 10mg @ 1440
--- NOTE | 2021-03-08 18:00 | NUR ---
Problems reprioritized. Patient report given, questions answered & plan of care reviewed with NOC RN.
--- NOTE | 2021-03-08 18:15 | NUR ---
Patient in room CICU 2010. I have received report from Claudia DICK and had the opportunity to ask questions and assume patient care.
[2021-03-08] MEDS: polyethylene glycol 3350 17gm powd pack OGT SCH (20:15)
[2021-03-08] MEDS: insulin glargine (Lantus) pen - multi-dose SQ SCH (20:15)
[2021-03-08] MEDS ORDERED: furosemide 20 MG/2 ML vial IV ONE (21:00)
[2021-03-09] VITALS (22 sets, daily range): BP systolic 54–160; BP diastolic 47–90
[2021-03-09] MEDS: mineral oil/petrolatum ophthal oint EACHEYE SCH ×4 (01:48→20:30)
[2021-03-09] MEDS: midazolam 100mg in NS 100ml 100 ML IV PRN (01:48)
[2021-03-09 02:54] LABS: BASOPHILS % (AUTO) 0.1 % (0-1); EOSINOPHILS # (AUTO) 0.4 X10'3 (0-0.9); EOSINOPHILS % (AUTO) 4.6 % (0-6); HEMATOCRIT 29.9 % (42.0-52.0); HEMOGLOBIN 9.8 g/dl (14.0-17.9); LYMPHOCYTES # (AUTO) 0.5 X10'3 (1.1-4.8); LYMPHOCYTES % (AUTO) 5.9 % (21-51); MEAN CORPUSCULAR HEMOGLOBIN 28.4 PG (27.0-31.0); MEAN CORPUSCULAR HGB CONC 32.7 g/dL (33.0-36.5); MEAN CORPUSCULAR VOLUME 86.7 FL (78-98); MEAN PLATELET VOLUME 8.9 FL (7.4-10.4); MONOCYTES # (AUTO) 0.5 X10'3 (0-0.9); MONOCYTES % (AUTO) 5.9 % (2-12); NEUTROPHILS # (AUTO) 6.7 X10'3 (1.8-7.7); NEUTROPHILS % (AUTO) 83.5 % (42-75); PLATELET COUNT 225 X10'3 (140-440); RED BLOOD COUNT 3.45 X10'6 (4.70-6.10); RED CELL DISTRIBUTION WIDTH 17.3 % (11.5-14.5); WHITE BLOOD COUNT 8.1 X10'3 (4.5-11.0)
[2021-03-09 03:09] LABS: D-DIMER 1.76 MG/L FEU (0-0.50)
[2021-03-09 03:13] LABS: ALANINE AMINOTRANSFERASE 43 U/L (12-78); ALBUMIN 1.3 G/DL (3.4-5.0); ALBUMIN/GLOBULIN RATIO 0.4 (1.1-1.5); ALKALINE PHOSPHATASE 93 IU/L (46-116); ANION GAP 1 (8-16); ASPARTATE AMINO TRANSFERASE 21 U/L (10-37); BILIRUBIN,TOTAL 0.5 MG/DL (0.1-1.0); BLOOD UREA NITROGEN 34 MG/DL (7-18); C-REACTIVE PROTEIN 13.22 MG/DL (0.0-0.5); CALCIUM 8.1 MG/DL (8.5-10.1); CHLORIDE 112 MMOL/L (99-107); CREATININE 0.54 MG/DL (0.60-1.10); GLUCOSE 115 MG/DL (70-104); MAGNESIUM 2.1 MG/DL (1.5-2.4); SODIUM 149 MMOL/L (135-145); TOTAL CARBON DIOXIDE 36.2 MMOL/L (24-32); TRIGLYCERIDES 96 MG/DL (20-135); eGFR > 90 ML/MIN
[2021-03-09] MEDS: FENTANYL 1000MCG/NS 100 ML BAG /PF IV PRN ×2 (03:14→10:03)
[2021-03-09 03:42] LABS: ABG BASE EXCESS 9.9 mmol/L (-2.0-2.0); ABG HCO3 34.9 mmol/L (22.0-26.0); ABG OXYGEN SATURATION 93.7 % (94-97); ABG PCO2 (T) 51.9 mmHg (35.0-48.0); ABG PO2 (T) 72.9 mmHg (75.0-100.0); ALLEN'S TEST POSITIVE; FCOHb 0.7 % (0.0-3.9); FMetHb 0.2 % (0.0-1.5); FO2Hb 92.9 % (94-97); PATIENT TEMPERATURE 38.3; PEEP 8 cm H2O; RESPIRATORY RATE 24 b/min; TOTAL HEMOGLOBIN 10.9 G/dl (14.0-18.0)
--- NOTE | 2021-03-09 06:24 | NUR ---
Problems reprioritized. Patient report given, questions answered & plan of care reviewed with Skyler DICK.
[2021-03-09] MEDS: pantoprazole 40 MG vial IV SCH (08:00)
[2021-03-09] MEDS: acetaminophen 325mg/10.15ml oral unit dose solution OGT PRN (08:45)
[2021-03-09] MEDS: enoxaparin 100mg/ml syringe SUBCUT SCH ×2 (08:46→20:27)
[2021-03-09] MEDS: lactobacillus rhamnosus 10,000 MMU CELLS/CAPSULE OGT SCH ×2 (08:46→20:28)
[2021-03-09] MEDS: lisinopril 5mg tablet PO SCH (08:47)
[2021-03-09] MEDS: methylPREDNISolone sod succ/PF 40mg inj. IV SCH (08:48)
[2021-03-09] MEDS: K and/or MAG REPLACEMENT MC SCH ×2 (08:49→20:00)
[2021-03-09] MEDS: propofol 1000mg/100ml bottle 100 ML IV SCH (09:01)
[2021-03-09] MEDS ORDERED: CALCIUM GLUC 1gm/50ml NACL,iso 50 ML IV ONE (12:25)
[2021-03-09] MEDS: oxyCODONE IR 5mg (immed. release) tablet PO SCH ×2 (12:26→20:27)
[2021-03-09] MEDS: QUEtiapine 25mg tablet PO SCH ×2 (12:27→20:28)
[2021-03-09] MEDS: cyclobenzaprine 10mg tablet PO SCH ×2 (12:27→20:28)
[2021-03-09] MEDS: ascorbic acid 500mg tablet PO SCH ×2 (12:29→20:28)
[2021-03-09] MEDS: zinc sulfate 220mg capsule PO SCH ×2 (12:30→20:27)
[2021-03-09] MEDS: MULTIVIT-MIN/FERROUS GLUCONATE 9 MG/15 ML LIQUID PO SCH (12:31)
--- NOTE | 2021-03-09 18:25 | NUR ---
Patient in room ICU 2042. I have received report from Sari DICK and had the opportunity to ask questions and assume patient care.
[2021-03-09] MEDS: insulin glargine (Lantus) pen - multi-dose SQ SCH (20:15)
[2021-03-09] MEDS: polyethylene glycol 3350 17gm powd pack OGT SCH (21:10)
[2021-03-10] VITALS (22 sets, daily range): BP systolic 109–146; BP diastolic 51–80
[2021-03-10] MEDS: oxyCODONE IR 5mg (immed. release) tablet PO SCH ×2 (01:12→08:50)
[2021-03-10] MEDS: mineral oil/petrolatum ophthal oint EACHEYE SCH ×4 (01:12→20:15)
[2021-03-10 02:47] LABS: BASOPHILS % (AUTO) 0.3 % (0-1); EOSINOPHILS # (AUTO) 0.3 X10'3 (0-0.9); EOSINOPHILS % (AUTO) 3.9 % (0-6); HEMATOCRIT 29.9 % (42.0-52.0); HEMOGLOBIN 9.8 g/dl (14.0-17.9); LYMPHOCYTES # (AUTO) 0.5 X10'3 (1.1-4.8); LYMPHOCYTES % (AUTO) 6.4 % (21-51); MEAN CORPUSCULAR HEMOGLOBIN 28.1 PG (27.0-31.0); MEAN CORPUSCULAR HGB CONC 32.8 g/dL (33.0-36.5); MEAN CORPUSCULAR VOLUME 85.9 FL (78-98); MEAN PLATELET VOLUME 8.5 FL (7.4-10.4); MONOCYTES # (AUTO) 0.6 X10'3 (0-0.9); MONOCYTES % (AUTO) 7.7 % (2-12); NEUTROPHILS # (AUTO) 5.9 X10'3 (1.8-7.7); NEUTROPHILS % (AUTO) 81.7 % (42-75); PLATELET COUNT 206 X10'3 (140-440); RED BLOOD COUNT 3.48 X10'6 (4.70-6.10); RED CELL DISTRIBUTION WIDTH 17.2 % (11.5-14.5); WHITE BLOOD COUNT 7.2 X10'3 (4.5-11.0)
[2021-03-10 03:00] LABS: D-DIMER 1.64 MG/L FEU (0-0.50)
[2021-03-10 03:05] LABS: ALANINE AMINOTRANSFERASE 56 U/L (12-78); ALBUMIN 1.3 G/DL (3.4-5.0); ALBUMIN/GLOBULIN RATIO 0.3 (1.1-1.5); ALKALINE PHOSPHATASE 92 IU/L (46-116); ANION GAP 1 (8-16); ASPARTATE AMINO TRANSFERASE 25 U/L (10-37); BILIRUBIN,TOTAL 0.4 MG/DL (0.1-1.0); BLOOD UREA NITROGEN 39 MG/DL (7-18); BUN/CREATININE RATIO 76.5 (5.4-32.0); C-REACTIVE PROTEIN 22.25 MG/DL (0.0-0.5); CHLORIDE 110 MMOL/L (99-107); CREATININE 0.51 MG/DL (0.60-1.10); GLUCOSE 124 MG/DL (70-104); MAGNESIUM 2.3 MG/DL (1.5-2.4); PHOSPHORUS 3.7 MG/DL (2.3-4.5); POTASSIUM 3.9 MMOL/L (3.5-5.1); SODIUM 149 MMOL/L (135-145); TOTAL CARBON DIOXIDE 37.6 MMOL/L (24-32); TOTAL PROTEIN 5.5 G/DL (6.4-8.2); eGFR > 90 ML/MIN
[2021-03-10] MEDS: cyclobenzaprine 10mg tablet PO SCH ×3 (03:51→20:09)
[2021-03-10 04:32] LABS: ABG BASE EXCESS 10.8 mmol/L (-2.0-2.0); ABG HCO3 38.4 mmol/L (22.0-26.0); ABG OXYGEN SATURATION 93.1 % (94-97); ABG PCO2 (T) 69.3 mmHg (35.0-48.0); ABG PO2 (T) 65.9 mmHg (75.0-100.0); ALLEN'S TEST POSITIVE; FCOHb 0.7 % (0.0-3.9); FMetHb 0.3 % (0.0-1.5); FO2Hb 92.2 % (94-97); PATIENT TEMPERATURE 36.9; PEEP 8 cm H2O; RESPIRATORY RATE 12 b/min; TOTAL HEMOGLOBIN 10.9 G/dl (14.0-18.0)
--- NOTE | 2021-03-10 06:34 | NUR ---
Problems reprioritized. Patient report given, questions answered & plan of care reviewed with Sari DICK.
--- NOTE | 2021-03-10 06:50 | NUR ---
sedation vacation started
[2021-03-10] MEDS: K and/or MAG REPLACEMENT MC SCH ×2 (08:00→20:00)
[2021-03-10] MEDS: MULTIVIT-MIN/FERROUS GLUCONATE 9 MG/15 ML LIQUID PO SCH (08:47)
[2021-03-10] MEDS: pantoprazole 40 MG vial IV SCH (08:47)
[2021-03-10] MEDS: zinc sulfate 220mg capsule PO SCH ×2 (08:48→20:15)
[2021-03-10] MEDS: methylPREDNISolone sod succ/PF 40mg inj. IV SCH (08:48)
[2021-03-10] MEDS: lisinopril 5mg tablet PO SCH (08:49)
[2021-03-10] MEDS: QUEtiapine 25mg tablet PO SCH ×2 (08:49→20:09)
[2021-03-10] MEDS: enoxaparin 100mg/ml syringe SUBCUT SCH ×2 (08:49→20:09)
[2021-03-10] MEDS: ascorbic acid 500mg tablet PO SCH ×2 (08:50→20:10)
[2021-03-10] MEDS: lactobacillus rhamnosus 10,000 MMU CELLS/CAPSULE OGT SCH ×2 (08:50→20:10)
--- NOTE | 2021-03-10 11:17 | NUR ---
F/u 03/10: Pt remains ventilated but sedation was stopped today per RN. Pt received trach and PEG 03/08, TF currently running Vital AF at 55ml/hr and advancing to goal of 85ml/hr. Rectal tube in place -100ml documented 03/08 receiving routine miralax. Will continue to monitor for TF tolerance and adjustment needs as medically indicated. Rec: 1) Continuous Vital AF with goal rate of 85 mL/hr to provide 2040 mL total volume/day, 2448 kcal, 153 g protein, and 1654 mL water 2) Additional 200mL water flush Q4H; monitor serum Na 3) Prealbumin q Sunday/; daily scaled weights 4) bowel care per rx; consider holding if high volume stools persist Addendum: 03/10/21 at [address] Amended: Links added.
[2021-03-10] MEDS: oxyCODONE IR 5mg (immed. release) tablet OGT SCH ×2 (14:00→20:15)
[2021-03-10] MEDS: insulin regular, human U-100 3ml vial - multi-dose SQ SCH (14:37)
--- NOTE | 2021-03-10 18:30 | NUR ---
Patient in room ICU 2042. I have received report from Sari DICK and had the opportunity to ask questions and assume patient care.
[2021-03-10] MEDS: polyethylene glycol 3350 17gm powd pack OGT SCH (20:08)
[2021-03-10] MEDS: insulin glargine (Lantus) pen - multi-dose SQ SCH (21:00)
[2021-03-11] VITALS (23 sets, daily range): BP systolic 98–182; BP diastolic 47–84
[2021-03-11] MEDS: mineral oil/petrolatum ophthal oint EACHEYE SCH ×4 (01:20→19:47)
[2021-03-11] MEDS: oxyCODONE IR 5mg (immed. release) tablet OGT SCH ×2 (01:46→08:58)
[2021-03-11 02:40] LABS: ABG BASE EXCESS 13.3 mmol/L (-2.0-2.0); ABG HCO3 41.6 mmol/L (22.0-26.0); ABG OXYGEN SATURATION 93.5 % (94-97); ABG PO2 (T) 70.4 mmHg (75.0-100.0); ALLEN'S TEST POSITIVE; FCOHb 0.6 % (0.0-3.9); FMetHb 0.2 % (0.0-1.5); FO2Hb 92.8 % (94-97); PATIENT TEMPERATURE 37.4; PEEP 8 cm H2O; TOTAL HEMOGLOBIN 10.6 G/dl (14.0-18.0)
[2021-03-11] MEDS: propofol 1000mg/100ml bottle 100 ML IV SCH (03:10)
[2021-03-11 03:32] LABS: BASOPHILS # (AUTO) 0.1 X10'3 (0-0.2); BASOPHILS % (AUTO) 0.8 % (0-1); EOSINOPHILS # (AUTO) 0.3 X10'3 (0-0.9); EOSINOPHILS % (AUTO) 3.3 % (0-6); HEMATOCRIT 29.5 % (42.0-52.0); HEMOGLOBIN 9.5 g/dl (14.0-17.9); LYMPHOCYTES # (AUTO) 0.5 X10'3 (1.1-4.8); LYMPHOCYTES % (AUTO) 6.2 % (21-51); MEAN CORPUSCULAR HEMOGLOBIN 28.4 PG (27.0-31.0); MEAN CORPUSCULAR HGB CONC 32.3 g/dL (33.0-36.5); MEAN CORPUSCULAR VOLUME 87.9 FL (78-98); MONOCYTES # (AUTO) 0.6 X10'3 (0-0.9); MONOCYTES % (AUTO) 7.7 % (2-12); NEUTROPHILS # (AUTO) 6.6 X10'3 (1.8-7.7); PLATELET COUNT 207 X10'3 (140-440); RED BLOOD COUNT 3.36 X10'6 (4.70-6.10); RED CELL DISTRIBUTION WIDTH 17.3 % (11.5-14.5)
[2021-03-11 03:46] LABS: D-DIMER 1.33 MG/L FEU (0-0.50)
[2021-03-11 03:50] LABS: ALANINE AMINOTRANSFERASE 48 U/L (12-78); ALBUMIN 1.3 G/DL (3.4-5.0); ALBUMIN/GLOBULIN RATIO 0.3 (1.1-1.5); ALKALINE PHOSPHATASE 98 IU/L (46-116); ANION GAP -1 (8-16); ASPARTATE AMINO TRANSFERASE 15 U/L (10-37); BILIRUBIN,TOTAL 0.3 MG/DL (0.1-1.0); BLOOD UREA NITROGEN 48 MG/DL (7-18); BUN/CREATININE RATIO 92.3 (5.4-32.0); C-REACTIVE PROTEIN 14.33 MG/DL (0.0-0.5); CALCIUM 8.5 MG/DL (8.5-10.1); CHLORIDE 109 MMOL/L (99-107); CREATININE 0.52 MG/DL (0.60-1.10); GLUCOSE 148 MG/DL (70-104); MAGNESIUM 2.3 MG/DL (1.5-2.4); PHOSPHORUS 2.7 MG/DL (2.3-4.5); POTASSIUM 4.2 MMOL/L (3.5-5.1); SODIUM 146 MMOL/L (135-145); TOTAL CARBON DIOXIDE 37.5 MMOL/L (24-32); TOTAL PROTEIN 5.5 G/DL (6.4-8.2); eGFR > 90 ML/MIN
[2021-03-11] MEDS: cyclobenzaprine 10mg tablet PO SCH (04:04)
--- NOTE | 2021-03-11 05:05 | NUR ---
DR Zavaleta notified of critical CO2 of 79.9. Order received to change vent settings to PRVC, TV-450, RR 18. Will continue to monitor.
--- NOTE | 2021-03-11 06:33 | NUR ---
Problems reprioritized. Patient report given, questions answered & plan of care reviewed with Hema DICK.
[2021-03-11 07:45] LABS: ABG OXYGEN SATURATION 94.7 % (94-97); ABG PCO2 (T) 67.9 mmHg (35.0-48.0); ABG PO2 (T) 68.8 mmHg (75.0-100.0); ALLEN'S TEST POSITIVE; FCOHb 0.8 % (0.0-3.9); FMetHb 0.2 % (0.0-1.5); FO2Hb 93.8 % (94-97); PEEP 8 cm H2O; RESPIRATORY RATE 18 b/min; TIDAL VOLUME 450 mL; TOTAL HEMOGLOBIN 11.8 G/dl (14.0-18.0)
[2021-03-11] MEDS: K and/or MAG REPLACEMENT MC SCH ×2 (08:00→19:53)
[2021-03-11] MEDS: QUEtiapine 25mg tablet PO SCH ×2 (08:54→19:47)
[2021-03-11] MEDS: ascorbic acid 500mg tablet PO SCH ×2 (08:54→19:47)
[2021-03-11] MEDS: pantoprazole 40 MG vial IV SCH (08:54)
[2021-03-11] MEDS: methylPREDNISolone sod succ/PF 40mg inj. IV SCH (08:54)
[2021-03-11] MEDS: lisinopril 5mg tablet PO SCH (08:57)
[2021-03-11] MEDS: zinc sulfate 220mg capsule PO SCH ×2 (08:57→19:47)
[2021-03-11] MEDS: lactobacillus rhamnosus 10,000 MMU CELLS/CAPSULE OGT SCH ×2 (08:57→19:47)
[2021-03-11] MEDS: MULTIVIT-MIN/FERROUS GLUCONATE 9 MG/15 ML LIQUID PO SCH (08:58)
[2021-03-11] MEDS: enoxaparin 100mg/ml syringe SUBCUT SCH ×2 (08:58→19:46)
--- NOTE | 2021-03-11 10:45 | NUR ---
AM Rounds with MD: MD aware of elevated co2 levels that are improving with vent changes. No new orders at this time. Notified patient is not waking up; orders to D/C narcotics, flexeril and start on Precedex to help with tachypnea; MD aware of RR in the 30/40s. MD aware of no x-ray this AM; orders for q3days x-ray.
[2021-03-11] MEDS: furosemide 40mg/4ml inj IV SCH ×2 (11:30→19:46)
--- NOTE | 2021-03-11 11:30 | NUR ---
Spoke with Lab about obtaining blood cultures; she reports a bobcat driver/labor will come in the afternoon.
[2021-03-11] MEDS: dexmedetomidine/D5W 100mL 100 ML IV SCH ×2 (11:31→19:23)
[2021-03-11] MEDS: insulin regular, human U-100 3ml vial - multi-dose SQ SCH ×2 (14:08→20:43)
--- NOTE | 2021-03-11 14:30 | NUR ---
Vascular paged for doppler study
--- NOTE | 2021-03-11 16:30 | NUR ---
Spoke with chemical processing laborer; no staff until after 1900 for blood cultures
--- NOTE | 2021-03-11 17:45 | NUR ---
Vascular paged for ultrasound. Per tech, they won't be available until the AM
--- NOTE | 2021-03-11 18:21 | NUR ---
Problems reprioritized. Patient report given, questions answered & plan of care reviewed with Yadi DICK.
--- NOTE | 2021-03-11 18:25 | NUR ---
Patient in room ICU 2042. I have received report from Hema DICK at bedside and had the opportunity to ask questions and assume patient care.
[2021-03-11] MEDS: polyethylene glycol 3350 17gm powd pack OGT SCH (20:05)
[2021-03-11] MEDS: insulin glargine (Lantus) pen - multi-dose SQ SCH (20:44)
[2021-03-12] VITALS (24 sets, daily range): BP systolic 122–194; BP diastolic 65–86
[2021-03-12] MEDS: mineral oil/petrolatum ophthal oint EACHEYE SCH ×4 (01:06→19:31)
[2021-03-12] MEDS: insulin regular, human U-100 3ml vial - multi-dose SQ SCH ×3 (02:05→20:06)
[2021-03-12 03:12] LABS: BASOPHILS # (AUTO) 0.1 X10'3 (0-0.2); EOSINOPHILS # (AUTO) 0.6 X10'3 (0-0.9); EOSINOPHILS % (AUTO) 6.4 % (0-6); HEMATOCRIT 28.9 % (42.0-52.0); HEMOGLOBIN 9.5 g/dl (14.0-17.9); LYMPHOCYTES # (AUTO) 0.9 X10'3 (1.1-4.8); MEAN CORPUSCULAR HEMOGLOBIN 28.3 PG (27.0-31.0); MEAN CORPUSCULAR HGB CONC 32.8 g/dL (33.0-36.5); MEAN CORPUSCULAR VOLUME 86.4 FL (78-98); MEAN PLATELET VOLUME 8.8 FL (7.4-10.4); MONOCYTES # (AUTO) 0.7 X10'3 (0-0.9); MONOCYTES % (AUTO) 7.7 % (2-12); NEUTROPHILS # (AUTO) 6.7 X10'3 (1.8-7.7); NEUTROPHILS % (AUTO) 74.9 % (42-75); PLATELET COUNT 212 X10'3 (140-440); RED BLOOD COUNT 3.35 X10'6 (4.70-6.10); RED CELL DISTRIBUTION WIDTH 16.7 % (11.5-14.5); WHITE BLOOD COUNT 8.9 X10'3 (4.5-11.0)
[2021-03-12 03:32] LABS: D-DIMER 1.42 MG/L FEU (0-0.50)
[2021-03-12 03:47] LABS: ALANINE AMINOTRANSFERASE 52 U/L (12-78); ALBUMIN 1.3 G/DL (3.4-5.0); ALBUMIN/GLOBULIN RATIO 0.3 (1.1-1.5); ALKALINE PHOSPHATASE 96 IU/L (46-116); ANION GAP -2 (8-16); ASPARTATE AMINO TRANSFERASE 29 U/L (10-37); BILIRUBIN,TOTAL 0.3 MG/DL (0.1-1.0); BLOOD UREA NITROGEN 36 MG/DL (7-18); C-REACTIVE PROTEIN 10.62 MG/DL (0.0-0.5); CALCIUM 8.2 MG/DL (8.5-10.1); CHLORIDE 104 MMOL/L (99-107); GLUCOSE 100 MG/DL (70-104); MAGNESIUM 1.9 MG/DL (1.5-2.4); POTASSIUM 3.7 MMOL/L (3.5-5.1); SODIUM 145 MMOL/L (135-145); TOTAL PROTEIN 5.4 G/DL (6.4-8.2); eGFR > 90 ML/MIN
[2021-03-12 03:57] LABS: ABG BASE EXCESS 16.5 mmol/L (-2.0-2.0); ABG HCO3 41.6 mmol/L (22.0-26.0); ABG OXYGEN SATURATION 94.1 % (94-97); ABG PCO2 (T) 55.2 mmHg (35.0-48.0); ABG PO2 (T) 68.6 mmHg (75.0-100.0); ALLEN'S TEST POSITIVE; FCOHb 0.7 % (0.0-3.9); FMetHb 0.1 % (0.0-1.5); FO2Hb 93.3 % (94-97); PATIENT TEMPERATURE 37.8; PEEP 8 cm H2O; RESPIRATORY RATE 12 b/min; TIDAL VOLUME 450 mL
[2021-03-12 03:59] LABS: TOTAL CARBON DIOXIDE 42.6 MMOL/L (24-32)
[2021-03-12] MEDS: dexmedetomidine/D5W 100mL 100 ML IV SCH ×4 (05:10→22:54)
--- NOTE | 2021-03-12 06:11 | NUR ---
Problems reprioritized. Patient report given, questions answered & plan of care reviewed with Hema DICK at bedside.
[2021-03-12] MEDS: QUEtiapine 25mg tablet PO SCH (08:00)
[2021-03-12] MEDS: K and/or MAG REPLACEMENT MC SCH ×2 (08:00→18:53)
[2021-03-12] MEDS: pantoprazole 40 MG vial IV SCH (08:33)
[2021-03-12] MEDS: methylPREDNISolone sod succ/PF 40mg inj. IV SCH (08:33)
[2021-03-12] MEDS: furosemide 40mg/4ml inj IV SCH ×2 (08:33→19:31)
[2021-03-12] MEDS: zinc sulfate 220mg capsule PO SCH ×2 (08:33→19:31)
[2021-03-12] MEDS: lactobacillus rhamnosus 10,000 MMU CELLS/CAPSULE OGT SCH ×2 (08:34→19:31)
[2021-03-12] MEDS: MULTIVIT-MIN/FERROUS GLUCONATE 9 MG/15 ML LIQUID PO SCH (08:34)
[2021-03-12] MEDS: lisinopril 5mg tablet PO SCH (08:34)
[2021-03-12] MEDS: ascorbic acid 500mg tablet PO SCH ×2 (08:34→19:31)
[2021-03-12] MEDS: enoxaparin 100mg/ml syringe SUBCUT SCH ×2 (08:35→19:31)
--- NOTE | 2021-03-12 09:45 | NUR ---
MD aware of non-occlusive thrombus to left upper arm; no blood pressure cuff to left arm
[2021-03-12] MEDS ORDERED: hydrALAZINE 20mg/ml inj. IV PRN (11:35)
[2021-03-12] MEDS: hydrALAZINE 20mg/ml inj. IV PRN ×3 (11:41→19:28)
--- NOTE | 2021-03-12 12:10 | NUR ---
SBP remains elevated; per kirsten Elise to increase Hydralazine to 20mg q6h
--- NOTE | 2021-03-12 17:14 | NUR ---
Dr. Carrington rounding and aware patient's blood pressure occasionally in the 170s/180s; orders to continue Hydralazine 20mg q6h PRN
--- NOTE | 2021-03-12 18:12 | NUR ---
Problems reprioritized. Patient report given, questions answered & plan of care reviewed with Yadi DICK.
--- NOTE | 2021-03-12 18:20 | NUR ---
Patient in room ICU 2042. I have received report from Hema DICK at bedside and had the opportunity to ask questions and assume patient care.
[2021-03-12] MEDS: insulin glargine (Lantus) pen - multi-dose SQ SCH (20:08)
[2021-03-12] MEDS: polyethylene glycol 3350 17gm powd pack OGT SCH (21:34)
[2021-03-13] VITALS (23 sets, daily range): BP systolic 94–179; BP diastolic 49–80
[2021-03-13] MEDS: mineral oil/petrolatum ophthal oint EACHEYE SCH ×4 (00:58→22:19)
[2021-03-13] MEDS: insulin regular, human U-100 3ml vial - multi-dose SQ SCH ×3 (01:44→22:19)
[2021-03-13 02:57] LABS: ABG BASE EXCESS 15.4 mmol/L (-2.0-2.0); ABG HCO3 40.5 mmol/L (22.0-26.0); ABG OXYGEN SATURATION 93.1 % (94-97); ABG PCO2 (T) 52.9 mmHg (35.0-48.0); ABG PO2 (T) 65.6 mmHg (75.0-100.0); ALLEN'S TEST POSITIVE; FCOHb 0.7 % (0.0-3.9); FMetHb 0.2 % (0.0-1.5); FO2Hb 92.3 % (94-97); PATIENT TEMPERATURE 37.4; PEEP 5 cm H2O; RESPIRATORY RATE 12 b/min; TIDAL VOLUME 450 mL
[2021-03-13] MEDS: hydrALAZINE 20mg/ml inj. IV PRN (03:07)
[2021-03-13] MEDS: dexmedetomidine/D5W 100mL 100 ML IV SCH ×2 (05:20→12:15)
--- NOTE | 2021-03-13 06:21 | NUR ---
Problems reprioritized. Patient report given, questions answered & plan of care reviewed with Carline DICK at bedside.
[2021-03-13 07:21] LABS: BASOPHILS # (AUTO) 0.1 X10'3 (0-0.2); BASOPHILS % (AUTO) 0.9 % (0-1); EOSINOPHILS # (AUTO) 0.5 X10'3 (0-0.9); EOSINOPHILS % (AUTO) 4.9 % (0-6); HEMATOCRIT 32.8 % (42.0-52.0); HEMOGLOBIN 10.7 g/dl (14.0-17.9); LYMPHOCYTES # (AUTO) 0.9 X10'3 (1.1-4.8); LYMPHOCYTES % (AUTO) 8.6 % (21-51); MEAN CORPUSCULAR HEMOGLOBIN 27.9 PG (27.0-31.0); MEAN CORPUSCULAR HGB CONC 32.8 g/dL (33.0-36.5); MEAN CORPUSCULAR VOLUME 85.2 FL (78-98); MEAN PLATELET VOLUME 9.2 FL (7.4-10.4); MONOCYTES # (AUTO) 0.7 X10'3 (0-0.9); MONOCYTES % (AUTO) 6.9 % (2-12); NEUTROPHILS # (AUTO) 7.9 X10'3 (1.8-7.7); NEUTROPHILS % (AUTO) 78.7 % (42-75); PLATELET COUNT 265 X10'3 (140-440); RED BLOOD COUNT 3.85 X10'6 (4.70-6.10); RED CELL DISTRIBUTION WIDTH 16.8 % (11.5-14.5)
[2021-03-13 07:22] LABS: D-DIMER 2.48 MG/L FEU (0-0.50)
[2021-03-13 07:33] LABS: ALANINE AMINOTRANSFERASE 80 U/L (12-78); ALBUMIN 1.5 G/DL (3.4-5.0); ALBUMIN/GLOBULIN RATIO 0.3 (1.1-1.5); ALKALINE PHOSPHATASE 125 IU/L (46-116); ANION GAP -5 (8-16); ASPARTATE AMINO TRANSFERASE 41 U/L (10-37); BILIRUBIN,TOTAL 0.4 MG/DL (0.1-1.0); BLOOD UREA NITROGEN 34 MG/DL (7-18); BUN/CREATININE RATIO 72.3 (5.4-32.0); C-REACTIVE PROTEIN 9.51 MG/DL (0.0-0.5); CALCIUM 8.9 MG/DL (8.5-10.1); CHLORIDE 95 MMOL/L (99-107); CREATININE 0.47 MG/DL (0.60-1.10); GLUCOSE 129 MG/DL (70-104); POTASSIUM 3.2 MMOL/L (3.5-5.1); SODIUM 129 MMOL/L (135-145); TOTAL CARBON DIOXIDE 39.3 MMOL/L (24-32); TOTAL PROTEIN 6.2 G/DL (6.4-8.2); eGFR > 90 ML/MIN
[2021-03-13] MEDS: K and/or MAG REPLACEMENT MC SCH ×2 (08:00→20:00)
[2021-03-13 08:04] LABS: ANISOCYTOSIS 1+; PLATELET ESTIMATE NORMAL; TOTAL CELLS COUNTED 100
[2021-03-13] MEDS: zinc sulfate 220mg capsule PO SCH ×2 (08:11→22:13)
[2021-03-13] MEDS: MULTIVIT-MIN/FERROUS GLUCONATE 9 MG/15 ML LIQUID PO SCH (08:11)
[2021-03-13] MEDS: ascorbic acid 500mg tablet PO SCH ×2 (08:11→22:13)
[2021-03-13] MEDS: lactobacillus rhamnosus 10,000 MMU CELLS/CAPSULE OGT SCH ×2 (08:11→22:13)
[2021-03-13] MEDS: lisinopril 5mg tablet PO SCH (08:11)
[2021-03-13] MEDS: enoxaparin 100mg/ml syringe SUBCUT SCH ×2 (08:12→22:25)
[2021-03-13] MEDS: pantoprazole 40 MG vial IV SCH (08:12)
[2021-03-13] MEDS: furosemide 40mg/4ml inj IV SCH ×2 (08:12→22:13)
[2021-03-13] MEDS: methylPREDNISolone sod succ/PF 40mg inj. IV SCH (08:13)
--- NOTE | 2021-03-13 08:38 | NUR ---
F/u 03/13: Pt remains ventilated though off sedation per MD note. TF currently running Vital AF at goal of 85ml/hr. Rectal tube in place -250ml documented 03/12 receiving routine miralax. Will continue to monitor for TF tolerance and adjustment needs as medically indicated. Rec: 1) Continuous Vital AF with goal rate of 85 mL/hr to provide 2040 mL total volume/day, 2448 kcal, 153 g protein, and 1654 mL water 2) Additional water per Reports Developer given BUE 4+/BLE 3+ edema and serum Na 129 3) Prealbumin q Sunday/; daily scaled weights 4) bowel care per rx; consider holding if high volume stools persist Addendum: 03/13/21 at [address] Amended: Links added.
[2021-03-13] MEDS ORDERED: LORazepam 2 mg/ml vial IV PRN (15:40)
--- NOTE | 2021-03-13 18:35 | NUR ---
I have received report and assumed care of pt, pt resting in bed rise and fall of chest cavity equile and symmetrical assessment complete vs as charted Precedex in place aide in sedation
[2021-03-13] MEDS: polyethylene glycol 3350 17gm powd pack OGT SCH (21:00)
[2021-03-13] MEDS: insulin glargine (Lantus) pen - multi-dose SQ SCH (22:18)
[2021-03-14] VITALS (23 sets, daily range): BP systolic 97–191; BP diastolic 39–85
[2021-03-14] MEDS: dexmedetomidine/D5W 100mL 100 ML IV SCH ×3 (01:37→23:17)
[2021-03-14] MEDS: mineral oil/petrolatum ophthal oint EACHEYE SCH ×4 (01:44→20:00)
[2021-03-14] MEDS: insulin regular, human U-100 3ml vial - multi-dose SQ SCH ×4 (02:57→21:16)
[2021-03-14 05:21] LABS: ABG BASE EXCESS 18.4 mmol/L (-2.0-2.0); ABG HCO3 43.3 mmol/L (22.0-26.0); ABG OXYGEN SATURATION 94.4 % (94-97); ABG PCO2 (T) 54.7 mmHg (35.0-48.0); ABG PO2 (T) 74.3 mmHg (75.0-100.0); ALLEN'S TEST POSITIVE; FCOHb 0.4 % (0.0-3.9); FMetHb 0.2 % (0.0-1.5); FO2Hb 93.8 % (94-97); PEEP 5 cm H2O; RESPIRATORY RATE 12 b/min; TIDAL VOLUME 450 mL; TOTAL HEMOGLOBIN 10.2 G/dl (14.0-18.0)
[2021-03-14 07:38] LABS: ALANINE AMINOTRANSFERASE 69 U/L (12-78); ALBUMIN 1.2 G/DL (3.4-5.0); ALBUMIN/GLOBULIN RATIO 0.3 (1.1-1.5); ALKALINE PHOSPHATASE 98 IU/L (46-116); ANION GAP -1 (8-16); ASPARTATE AMINO TRANSFERASE 34 U/L (10-37); BILIRUBIN,TOTAL 0.2 MG/DL (0.1-1.0); BLOOD UREA NITROGEN 37 MG/DL (7-18); BUN/CREATININE RATIO 80.4 (5.4-32.0); C-REACTIVE PROTEIN 5.26 MG/DL (0.0-0.5); CALCIUM 7.9 MG/DL (8.5-10.1); CHLORIDE 96 MMOL/L (99-107); CREATININE 0.46 MG/DL (0.60-1.10); GLUCOSE 118 MG/DL (70-104); MAGNESIUM 2.1 MG/DL (1.5-2.4); POTASSIUM 3.7 MMOL/L (3.5-5.1); SODIUM 133 MMOL/L (135-145); TOTAL CARBON DIOXIDE 37.7 MMOL/L (24-32); TOTAL PROTEIN 5.1 G/DL (6.4-8.2); TRIGLYCERIDES 81 MG/DL (20-135); eGFR > 90 ML/MIN
[2021-03-14] MEDS: MULTIVIT-MIN/FERROUS GLUCONATE 9 MG/15 ML LIQUID PO SCH (07:40)
[2021-03-14] MEDS: ascorbic acid 500mg tablet PO SCH ×2 (07:40→20:00)
[2021-03-14] MEDS: zinc sulfate 220mg capsule PO SCH ×2 (07:40→20:00)
[2021-03-14] MEDS: enoxaparin 100mg/ml syringe SUBCUT SCH ×2 (07:40→20:00)
[2021-03-14] MEDS: lactobacillus rhamnosus 10,000 MMU CELLS/CAPSULE OGT SCH ×2 (07:40→20:00)
[2021-03-14] MEDS: methylPREDNISolone sod succ/PF 40mg inj. IV SCH (07:41)
[2021-03-14] MEDS: furosemide 40mg/4ml inj IV SCH ×2 (07:41→20:00)
[2021-03-14] MEDS: pantoprazole 40 MG vial IV SCH (07:41)
[2021-03-14] MEDS: lisinopril 5mg tablet PO SCH (07:41)
[2021-03-14] MEDS: K and/or MAG REPLACEMENT MC SCH ×2 (08:00→20:00)
[2021-03-14 09:27] LABS: BASOPHILS # (AUTO) 0.1 X10'3 (0-0.2); BASOPHILS % (AUTO) 1.3 % (0-1); EOSINOPHILS # (AUTO) 0.6 X10'3 (0-0.9); EOSINOPHILS % (AUTO) 5.4 % (0-6); HEMATOCRIT 30.6 % (42.0-52.0); HEMOGLOBIN 10.1 g/dl (14.0-17.9); LYMPHOCYTES # (AUTO) 1.4 X10'3 (1.1-4.8); LYMPHOCYTES % (AUTO) 13.6 % (21-51); MEAN CORPUSCULAR HEMOGLOBIN 27.8 PG (27.0-31.0); MEAN CORPUSCULAR HGB CONC 32.9 g/dL (33.0-36.5); MEAN CORPUSCULAR VOLUME 84.4 FL (78-98); MEAN PLATELET VOLUME 8.9 FL (7.4-10.4); MONOCYTES # (AUTO) 0.8 X10'3 (0-0.9); MONOCYTES % (AUTO) 7.5 % (2-12); NEUTROPHILS # (AUTO) 7.4 X10'3 (1.8-7.7); NEUTROPHILS % (AUTO) 72.2 % (42-75); PLATELET COUNT 283 X10'3 (140-440); RED BLOOD COUNT 3.63 X10'6 (4.70-6.10); RED CELL DISTRIBUTION WIDTH 16.7 % (11.5-14.5); WHITE BLOOD COUNT 10.2 X10'3 (4.5-11.0)
[2021-03-14 09:53] LABS: D-DIMER 3.28 MG/L FEU (0-0.50)
[2021-03-14 11:12] LABS: TOTAL CELLS COUNTED 100
[2021-03-14 11:13] LABS: ANISOCYTOSIS 1+; PLATELET ESTIMATE NORMAL
[2021-03-14 11:14] LABS: ELLIPTOCYTES FEW; HYPOCHROMASIA 1+; POLYCHROMASIA 1+; SCHISTOCYTES FEW; TEAR DROP CELLS FEW
--- NOTE | 2021-03-14 11:25 | NUR ---
Rounds note Reviewed systems, drips, nutrition and labs. Plan for the day is to wean off the precedex and trial patient on CPAP, MD is is comfortable with respiratory rate in the mid 50's. He would like for him to get a PICC line as well. New orders entered.
--- NOTE | 2021-03-14 14:00 | NUR ---
merchandise flow manager Fouzia called and stated that the Amy is the only one to get information
--- NOTE | 2021-03-14 18:15 | NUR ---
Problems reprioritized. Patient report given, questions answered & plan of care reviewed with Hadley DICK.
--- NOTE | 2021-03-14 18:53 | NUR ---
I have received report and assumed care of pt. Pt in bed will slowly nod head to yes and no questions, unable to move extremities yet ventilator in place tube feeding in place for nutritional support.
[2021-03-14] MEDS: polyethylene glycol 3350 17gm powd pack OGT SCH (21:00)
[2021-03-14] MEDS: insulin glargine (Lantus) pen - multi-dose SQ SCH (21:17)
[2021-03-15] VITALS (24 sets, daily range): BP systolic 93–180; BP diastolic 47–91
[2021-03-15 03:03] LABS: ABG BASE EXCESS 17.1 mmol/L (-2.0-2.0); ABG HCO3 42.4 mmol/L (22.0-26.0); ABG OXYGEN SATURATION 93.9 % (94-97); ABG PCO2 (T) 55.6 mmHg (35.0-48.0); ABG PO2 (T) 68.2 mmHg (75.0-100.0); ALLEN'S TEST POSITIVE; FCOHb 0.5 % (0.0-3.9); FMetHb 0.2 % (0.0-1.5); FO2Hb 93.2 % (94-97); PATIENT TEMPERATURE 37.6; PEEP 5 cm H2O; RESPIRATORY RATE 12 b/min; TIDAL VOLUME 450 mL; TOTAL HEMOGLOBIN 10.9 G/dl (14.0-18.0)
[2021-03-15] MEDS: mineral oil/petrolatum ophthal oint EACHEYE SCH ×4 (03:20→20:49)
[2021-03-15 06:26] LABS: BASOPHILS # (AUTO) 0.1 X10'3 (0-0.2); BASOPHILS % (AUTO) 0.8 % (0-1); EOSINOPHILS # (AUTO) 0.5 X10'3 (0-0.9); EOSINOPHILS % (AUTO) 3.5 % (0-6); HEMOGLOBIN 10.2 g/dl (14.0-17.9); LYMPHOCYTES # (AUTO) 1.1 X10'3 (1.1-4.8); MEAN CORPUSCULAR VOLUME 84.7 FL (78-98); MEAN PLATELET VOLUME 8.8 FL (7.4-10.4); MONOCYTES # (AUTO) 0.9 X10'3 (0-0.9); MONOCYTES % (AUTO) 6.3 % (2-12); NEUTROPHILS # (AUTO) 11.1 X10'3 (1.8-7.7); NEUTROPHILS % (AUTO) 81.4 % (42-75); PLATELET COUNT 308 X10'3 (140-440); RED BLOOD COUNT 3.66 X10'6 (4.70-6.10); RED CELL DISTRIBUTION WIDTH 16.4 % (11.5-14.5); WHITE BLOOD COUNT 13.6 X10'3 (4.5-11.0)
--- NOTE | 2021-03-15 06:30 | NUR ---
Received report from Laura Taylor RN
[2021-03-15 06:46] LABS: ALANINE AMINOTRANSFERASE 108 U/L (12-78); ALBUMIN 1.4 G/DL (3.4-5.0); ALBUMIN/GLOBULIN RATIO 0.3 (1.1-1.5); ALKALINE PHOSPHATASE 118 IU/L (46-116); ANION GAP -1 (8-16); ASPARTATE AMINO TRANSFERASE 55 U/L (10-37); BILIRUBIN,TOTAL 0.3 MG/DL (0.1-1.0); BLOOD UREA NITROGEN 31 MG/DL (7-18); BUN/CREATININE RATIO 63.3 (5.4-32.0); C-REACTIVE PROTEIN 3.82 MG/DL (0.0-0.5); CALCIUM 8.1 MG/DL (8.5-10.1); CHLORIDE 97 MMOL/L (99-107); CREATININE 0.49 MG/DL (0.60-1.10); GLUCOSE 155 MG/DL (70-104); MAGNESIUM 1.8 MG/DL (1.5-2.4); POTASSIUM 3.1 MMOL/L (3.5-5.1); SODIUM 134 MMOL/L (135-145); TOTAL CARBON DIOXIDE 38.3 MMOL/L (24-32); TOTAL PROTEIN 5.9 G/DL (6.4-8.2); eGFR > 90 ML/MIN
[2021-03-15] MEDS: K and/or MAG REPLACEMENT MC SCH ×2 (08:00→20:00)
[2021-03-15 08:29] LABS: TOTAL CELLS COUNTED 100
[2021-03-15 08:30] LABS: ANISOCYTOSIS 1+; HYPOCHROMASIA 1+; PLATELET ESTIMATE NORMAL; POLYCHROMASIA FEW
[2021-03-15 08:31] LABS: ELLIPTOCYTES FEW; SCHISTOCYTES FEW; TEAR DROP CELLS FEW
[2021-03-15] MEDS: dexmedetomidine/D5W 100mL 100 ML IV SCH ×3 (08:41→20:06)
[2021-03-15] MEDS: lisinopril 5mg tablet PO SCH (08:42)
[2021-03-15] MEDS: furosemide 40mg/4ml inj IV SCH ×2 (08:42→20:48)
[2021-03-15] MEDS: methylPREDNISolone sod succ/PF 40mg inj. IV SCH (08:42)
[2021-03-15] MEDS: zinc sulfate 220mg capsule PO SCH ×2 (08:42→20:48)
[2021-03-15] MEDS: MULTIVIT-MIN/FERROUS GLUCONATE 9 MG/15 ML LIQUID PO SCH (08:42)
[2021-03-15] MEDS: pantoprazole 40 MG vial IV SCH (08:43)
[2021-03-15] MEDS: lactobacillus rhamnosus 10,000 MMU CELLS/CAPSULE OGT SCH ×2 (08:43→20:48)
[2021-03-15] MEDS: enoxaparin 100mg/ml syringe SUBCUT SCH ×2 (08:43→20:49)
[2021-03-15] MEDS: ascorbic acid 500mg tablet PO SCH ×2 (08:43→20:48)
[2021-03-15] MEDS: potassium Cl 40MEQ/250ML bag 270 ML IV PRN (08:44)
[2021-03-15] MEDS: insulin regular, human U-100 3ml vial - multi-dose SQ SCH ×3 (08:49→21:08)
[2021-03-15 10:06] LABS: D-DIMER 2.23 MG/L FEU (0-0.50)
[2021-03-15] MEDS: polyethylene glycol 3350 17gm powd pack OGT SCH (20:49)
[2021-03-15] MEDS: insulin glargine (Lantus) pen - multi-dose SQ SCH (21:08)
[2021-03-16] VITALS (23 sets, daily range): BP systolic 104–203; BP diastolic 54–88
[2021-03-16] MEDS: acetaminophen 325mg/10.15ml oral unit dose solution OGT PRN (00:14)
[2021-03-16] MEDS: dexmedetomidine/D5W 100mL 100 ML IV SCH (01:52)
[2021-03-16] MEDS: mineral oil/petrolatum ophthal oint EACHEYE SCH ×4 (02:11→20:57)
[2021-03-16] MEDS: insulin regular, human U-100 3ml vial - multi-dose SQ SCH ×2 (02:18→08:47)
[2021-03-16 02:47] LABS: ABG BASE EXCESS 14.5 mmol/L (-2.0-2.0); ABG HCO3 38.7 mmol/L (22.0-26.0); ABG OXYGEN SATURATION 91.7 % (94-97); ABG PCO2 (T) 47.7 mmHg (35.0-48.0); ABG PO2 (T) 60.9 mmHg (75.0-100.0); ALLEN'S TEST POSITIVE; FCOHb 0.6 % (0.0-3.9); FMetHb 0.3 % (0.0-1.5); FO2Hb 90.9 % (94-97); PATIENT TEMPERATURE 37.2; PEEP 5 cm H2O; RESPIRATORY RATE 12 b/min; TIDAL VOLUME 450 mL; TOTAL HEMOGLOBIN 9.9 G/dl (14.0-18.0)
[2021-03-16 06:27] LABS: D-DIMER 2.01 MG/L FEU (0-0.50)
[2021-03-16 06:28] LABS: BASOPHILS % (AUTO) 0.3 % (0-1); EOSINOPHILS # (AUTO) 0.4 X10'3 (0-0.9); EOSINOPHILS % (AUTO) 3.7 % (0-6); HEMATOCRIT 29.5 % (42.0-52.0); HEMOGLOBIN 9.6 g/dl (14.0-17.9); LYMPHOCYTES # (AUTO) 1.3 X10'3 (1.1-4.8); LYMPHOCYTES % (AUTO) 11.5 % (21-51); MEAN CORPUSCULAR HEMOGLOBIN 27.6 PG (27.0-31.0); MEAN CORPUSCULAR HGB CONC 32.4 g/dL (33.0-36.5); MEAN CORPUSCULAR VOLUME 85.1 FL (78-98); MEAN PLATELET VOLUME 8.8 FL (7.4-10.4); MONOCYTES # (AUTO) 0.8 X10'3 (0-0.9); MONOCYTES % (AUTO) 6.6 % (2-12); NEUTROPHILS # (AUTO) 8.8 X10'3 (1.8-7.7); NEUTROPHILS % (AUTO) 77.9 % (42-75); PLATELET COUNT 310 X10'3 (140-440); RED BLOOD COUNT 3.47 X10'6 (4.70-6.10); RED CELL DISTRIBUTION WIDTH 16.8 % (11.5-14.5); WHITE BLOOD COUNT 11.3 X10'3 (4.5-11.0)
--- NOTE | 2021-03-16 06:28 | NUR ---
Problems reprioritized. Patient report given, questions answered & plan of care reviewed with MAYELIN Holland.
[2021-03-16 07:02] LABS: ALANINE AMINOTRANSFERASE 104 U/L (12-78); ALBUMIN 1.4 G/DL (3.4-5.0); ALBUMIN/GLOBULIN RATIO 0.3 (1.1-1.5); ALKALINE PHOSPHATASE 106 IU/L (46-116); ANION GAP 3 (8-16); ASPARTATE AMINO TRANSFERASE 41 U/L (10-37); BILIRUBIN,TOTAL 0.2 MG/DL (0.1-1.0); BLOOD UREA NITROGEN 33 MG/DL (7-18); C-REACTIVE PROTEIN 6.86 MG/DL (0.0-0.5); CHLORIDE 97 MMOL/L (99-107); GLUCOSE 126 MG/DL (70-104); MAGNESIUM 1.8 MG/DL (1.5-2.4); POTASSIUM 3.6 MMOL/L (3.5-5.1); SODIUM 139 MMOL/L (135-145); TOTAL CARBON DIOXIDE 39.3 MMOL/L (24-32); TOTAL PROTEIN 5.6 G/DL (6.4-8.2); TRIGLYCERIDES 95 MG/DL (20-135); eGFR > 90 ML/MIN
[2021-03-16] MEDS: K and/or MAG REPLACEMENT MC SCH ×2 (08:00→20:00)
[2021-03-16] MEDS: MULTIVIT-MIN/FERROUS GLUCONATE 9 MG/15 ML LIQUID PO SCH (08:37)
[2021-03-16] MEDS: ascorbic acid 500mg tablet PO SCH ×2 (08:37→20:56)
[2021-03-16] MEDS: zinc sulfate 220mg capsule PO SCH ×2 (08:37→20:56)
[2021-03-16] MEDS: lisinopril 5mg tablet PO SCH (08:38)
[2021-03-16] MEDS: lactobacillus rhamnosus 10,000 MMU CELLS/CAPSULE OGT SCH ×2 (08:38→20:56)
[2021-03-16] MEDS: pantoprazole 40 MG vial IV SCH (08:38)
[2021-03-16] MEDS: furosemide 40mg/4ml inj IV SCH ×2 (08:39→20:56)
[2021-03-16] MEDS: methylPREDNISolone sod succ/PF 40mg inj. IV SCH (08:41)
[2021-03-16] MEDS: enoxaparin 100mg/ml syringe SUBCUT SCH ×2 (08:42→20:57)
--- NOTE | 2021-03-16 11:26 | NUR ---
F/u 03/16: Pt remains ventilated though off sedation. TF currently running Vital AF at goal of 85ml/hr. Pt documented to be having daily moderate stools receiving routine miralax. Will continue to monitor for TF tolerance and adjustment needs as medically indicated. Rec: 1) Continuous Vital AF with goal rate of 85 mL/hr to provide 2040 mL total volume/day, 2448 kcal, 153 g protein, and 1654 mL water 2) Additional water per Novelty Maker given BUE 4+/BLE 3+ edema 3) Prealbumin q Sunday/; daily scaled weights 4) bowel care per rx; consider holding if high volume stools persist Addendum: 03/16/21 at [address] Amended: Links added.
[2021-03-16 13:40] LABS: ANISOCYTOSIS 1+; PLATELET ESTIMATE NORMAL; POLYCHROMASIA 1+; TOTAL CELLS COUNTED 100
[2021-03-16 13:41] LABS: HYPOCHROMASIA 1+; SCHISTOCYTES FEW
[2021-03-16 13:44] LABS: ELLIPTOCYTES FEW
[2021-03-16] MEDS: LORazepam 2 mg/ml vial IV PRN (15:12)
--- NOTE | 2021-03-16 18:30 | NUR ---
I have received report from MAYELIN Holland and had the opportunity to ask questions and address my concerns.
[2021-03-16] MEDS: polyethylene glycol 3350 17gm powd pack OGT SCH (20:57)
[2021-03-16] MEDS: insulin glargine (Lantus) pen - multi-dose SQ SCH (21:16)
[2021-03-17] VITALS (16 sets, daily range): BP systolic 97–204; BP diastolic 50–88
[2021-03-17] MEDS: dexmedetomidine/D5W 100mL 100 ML IV SCH ×3 (01:45→21:05)
[2021-03-17] MEDS: mineral oil/petrolatum ophthal oint EACHEYE SCH ×4 (01:46→20:26)
[2021-03-17] MEDS: insulin regular, human U-100 3ml vial - multi-dose SQ SCH ×3 (02:21→22:10)
[2021-03-17 03:31] LABS: ABG BASE EXCESS 16.4 mmol/L (-2.0-2.0); ABG HCO3 42.1 mmol/L (22.0-26.0); ABG OXYGEN SATURATION 94.1 % (94-97); ABG PCO2 (T) 57.1 mmHg (35.0-48.0); ABG PO2 (T) 70.1 mmHg (75.0-100.0); ALLEN'S TEST POSITIVE; FCOHb 0.7 % (0.0-3.9); FMetHb 0.1 % (0.0-1.5); FO2Hb 93.3 % (94-97); PATIENT TEMPERATURE 37.3; PEEP 5 cm H2O; RESPIRATORY RATE 12 b/min; TIDAL VOLUME 450 mL; TOTAL HEMOGLOBIN 11.1 G/dl (14.0-18.0)
[2021-03-17 05:57] LABS: BASOPHILS % (AUTO) 0.3 % (0-1); EOSINOPHILS # (AUTO) 0.4 X10'3 (0-0.9); EOSINOPHILS % (AUTO) 2.9 % (0-6); HEMATOCRIT 30.8 % (42.0-52.0); HEMOGLOBIN 9.9 g/dl (14.0-17.9); LYMPHOCYTES # (AUTO) 1.5 X10'3 (1.1-4.8); LYMPHOCYTES % (AUTO) 11.8 % (21-51); MEAN CORPUSCULAR HEMOGLOBIN 27.2 PG (27.0-31.0); MEAN PLATELET VOLUME 8.4 FL (7.4-10.4); MONOCYTES # (AUTO) 0.9 X10'3 (0-0.9); MONOCYTES % (AUTO) 7.3 % (2-12); NEUTROPHILS # (AUTO) 9.7 X10'3 (1.8-7.7); NEUTROPHILS % (AUTO) 77.7 % (42-75); PLATELET COUNT 413 X10'3 (140-440); RED BLOOD COUNT 3.63 X10'6 (4.70-6.10); RED CELL DISTRIBUTION WIDTH 16.9 % (11.5-14.5); WHITE BLOOD COUNT 12.5 X10'3 (4.5-11.0)
--- NOTE | 2021-03-17 06:05 | NUR ---
Problems reprioritized. Patient report given, questions answered & plan of care reviewed with MAYELIN Holland.
[2021-03-17 06:08] LABS: D-DIMER 1.73 MG/L FEU (0-0.50)
[2021-03-17 06:11] LABS: ALANINE AMINOTRANSFERASE 97 U/L (12-78); ALBUMIN 1.6 G/DL (3.4-5.0); ALBUMIN/GLOBULIN RATIO 0.4 (1.1-1.5); ALKALINE PHOSPHATASE 109 IU/L (46-116); ANION GAP 2 (8-16); ASPARTATE AMINO TRANSFERASE 32 U/L (10-37); BILIRUBIN,TOTAL 0.2 MG/DL (0.1-1.0); BLOOD UREA NITROGEN 31 MG/DL (7-18); BUN/CREATININE RATIO 59.6 (5.4-32.0); CALCIUM 8.4 MG/DL (8.5-10.1); CHLORIDE 98 MMOL/L (99-107); CREATININE 0.52 MG/DL (0.60-1.10); GLUCOSE 113 MG/DL (70-104); MAGNESIUM 1.8 MG/DL (1.5-2.4); PHOSPHORUS 3.2 MG/DL (2.3-4.5); POTASSIUM 3.3 MMOL/L (3.5-5.1); SODIUM 140 MMOL/L (135-145); TOTAL PROTEIN 6.1 G/DL (6.4-8.2); eGFR > 90 ML/MIN
[2021-03-17 06:18] LABS: TOTAL CARBON DIOXIDE 40.5 MMOL/L (24-32)
[2021-03-17] MEDS: ascorbic acid 500mg tablet PO SCH ×2 (07:48→20:24)
[2021-03-17] MEDS: zinc sulfate 220mg capsule PO SCH ×2 (07:48→20:24)
[2021-03-17] MEDS: MULTIVIT-MIN/FERROUS GLUCONATE 9 MG/15 ML LIQUID PO SCH (07:48)
[2021-03-17] MEDS: pantoprazole 40 MG vial IV SCH (07:48)
[2021-03-17] MEDS: lactobacillus rhamnosus 10,000 MMU CELLS/CAPSULE OGT SCH ×2 (07:48→20:23)
[2021-03-17] MEDS: furosemide 40mg/4ml inj IV SCH ×2 (07:48→20:23)
[2021-03-17] MEDS: lisinopril 5mg tablet PO SCH (07:49)
[2021-03-17] MEDS: enoxaparin 100mg/ml syringe SUBCUT SCH ×2 (07:50→20:23)
[2021-03-17] MEDS: K and/or MAG REPLACEMENT MC SCH (08:00)
[2021-03-17 09:26] LABS: ANISOCYTOSIS 1+; ELLIPTOCYTES FEW; HYPOCHROMASIA 1+; PLATELET ESTIMATE NORMAL; POLYCHROMASIA 1+; SCHISTOCYTES FEW; TOTAL CELLS COUNTED 100
[2021-03-17] MEDS: LORazepam 2 mg/ml vial IV PRN (10:40)
[2021-03-17] MEDS: potassium Cl 40MEQ/250ML bag 270 ML IV PRN (10:45)
[2021-03-17] MEDS ORDERED: LORazepam 2 mg/ml vial IV PRN (11:05)
[2021-03-17] MEDS ORDERED: metoprolol succinate 25mg (24-HOUR) SR. Tablet PO SCH (11:11)
[2021-03-17] MEDS ORDERED: metoprolol tartrate 25mg tablet PO SCH (11:18)
[2021-03-17] MEDS: metoprolol tartrate 25mg tablet OGT SCH (20:24)
[2021-03-17] MEDS: polyethylene glycol 3350 17gm powd pack OGT SCH (20:25)
[2021-03-17] MEDS: acetaminophen 325mg tablet OGT PRN (20:25)
[2021-03-17] MEDS: insulin glargine (Lantus) pen - multi-dose SQ SCH (22:00)
[2021-03-18] VITALS (22 sets, daily range): BP systolic 93–140; BP diastolic 52–73
[2021-03-18] MEDS: mineral oil/petrolatum ophthal oint EACHEYE SCH ×4 (02:00→20:20)
[2021-03-18 04:09] LABS: ABG BASE EXCESS 14.5 mmol/L (-2.0-2.0); ABG HCO3 40.7 mmol/L (22.0-26.0); ABG OXYGEN SATURATION 95.2 % (94-97); ABG PCO2 (T) 59.7 mmHg (35.0-48.0); ABG PO2 (T) 74.7 mmHg (75.0-100.0); ALLEN'S TEST POSITIVE; FCOHb 0.8 % (0.0-3.9); FMetHb 0.3 % (0.0-1.5); FO2Hb 94.2 % (94-97); PEEP 5 cm H2O; RESPIRATORY RATE 12 b/min; TIDAL VOLUME 450 mL; TOTAL HEMOGLOBIN 10.3 G/dl (14.0-18.0)
[2021-03-18 06:22] LABS: D-DIMER 1.49 MG/L FEU (0-0.50)
[2021-03-18 06:25] LABS: BASOPHILS % (AUTO) 0.3 % (0-1); EOSINOPHILS # (AUTO) 0.3 X10'3 (0-0.9); EOSINOPHILS % (AUTO) 2.4 % (0-6); HEMATOCRIT 30.3 % (42.0-52.0); HEMOGLOBIN 10.1 g/dl (14.0-17.9); LYMPHOCYTES # (AUTO) 1.1 X10'3 (1.1-4.8); LYMPHOCYTES % (AUTO) 10.3 % (21-51); MEAN CORPUSCULAR HEMOGLOBIN 28.1 PG (27.0-31.0); MEAN CORPUSCULAR HGB CONC 33.3 g/dL (33.0-36.5); MEAN CORPUSCULAR VOLUME 84.4 FL (78-98); MEAN PLATELET VOLUME 8.2 FL (7.4-10.4); MONOCYTES # (AUTO) 0.7 X10'3 (0-0.9); MONOCYTES % (AUTO) 6.1 % (2-12); NEUTROPHILS # (AUTO) 8.8 X10'3 (1.8-7.7); NEUTROPHILS % (AUTO) 80.9 % (42-75); PLATELET COUNT 439 X10'3 (140-440); RED BLOOD COUNT 3.59 X10'6 (4.70-6.10); RED CELL DISTRIBUTION WIDTH 17.1 % (11.5-14.5); WHITE BLOOD COUNT 10.9 X10'3 (4.5-11.0)
[2021-03-18 06:43] LABS: ALANINE AMINOTRANSFERASE 88 U/L (12-78); ALBUMIN 1.6 G/DL (3.4-5.0); ALBUMIN/GLOBULIN RATIO 0.3 (1.1-1.5); ALKALINE PHOSPHATASE 122 IU/L (46-116); ANION GAP 3 (8-16); ASPARTATE AMINO TRANSFERASE 28 U/L (10-37); BILIRUBIN,TOTAL 0.2 MG/DL (0.1-1.0); BLOOD UREA NITROGEN 36 MG/DL (7-18); BUN/CREATININE RATIO 70.6 (5.4-32.0); C-REACTIVE PROTEIN 4.23 MG/DL (0.0-0.5); CALCIUM 8.4 MG/DL (8.5-10.1); CHLORIDE 99 MMOL/L (99-107); CREATININE 0.51 MG/DL (0.60-1.10); GLUCOSE 119 MG/DL (70-104); MAGNESIUM 1.9 MG/DL (1.5-2.4); POTASSIUM 3.9 MMOL/L (3.5-5.1); SODIUM 141 MMOL/L (135-145); TOTAL CARBON DIOXIDE 39.5 MMOL/L (24-32); TOTAL PROTEIN 6.2 G/DL (6.4-8.2); eGFR > 90 ML/MIN
[2021-03-18] MEDS: K and/or MAG REPLACEMENT MC SCH ×2 (08:00→20:00)
[2021-03-18] MEDS: ascorbic acid 500mg tablet PO SCH ×2 (08:09→20:19)
[2021-03-18] MEDS: MULTIVIT-MIN/FERROUS GLUCONATE 9 MG/15 ML LIQUID PO SCH (08:09)
[2021-03-18] MEDS: furosemide 40mg/4ml inj IV SCH (08:09)
[2021-03-18] MEDS: lactobacillus rhamnosus 10,000 MMU CELLS/CAPSULE OGT SCH ×2 (08:09→20:20)
[2021-03-18] MEDS: zinc sulfate 220mg capsule PO SCH ×2 (08:09→20:19)
[2021-03-18] MEDS: pantoprazole 40 MG vial IV SCH (08:09)
[2021-03-18] MEDS: metoprolol tartrate 25mg tablet OGT SCH (08:10)
[2021-03-18] MEDS: lisinopril 5mg tablet PO SCH (08:10)
[2021-03-18] MEDS: enoxaparin 100mg/ml syringe SUBCUT SCH ×2 (08:11→20:21)
[2021-03-18] MEDS: insulin regular, human U-100 3ml vial - multi-dose SQ SCH ×3 (08:20→22:22)
[2021-03-18] MEDS: dexmedetomidine/D5W 100mL 100 ML IV SCH ×2 (11:50→18:57)
[2021-03-18 12:43] LABS: ANISOCYTOSIS 1+; HYPOCHROMASIA 1+; PLATELET ESTIMATE NORMAL; POLYCHROMASIA 1+; TOTAL CELLS COUNTED 100
[2021-03-18 12:44] LABS: SCHISTOCYTES FEW
[2021-03-18] MEDS: acetaminophen 325mg/10.15ml oral unit dose solution OGT PRN (15:24)
[2021-03-18] MEDS ORDERED: metolazone 2.5mg tablet PO STA (17:50)
[2021-03-18] MEDS: cefepime 1GM/NS ADD-VANTAGE 100 ML IV SCH (19:28)
[2021-03-18] MEDS: acetaminophen 325mg tablet OGT PRN (20:19)
[2021-03-18] MEDS: metoprolol tartrate 12.5mg (1/2 tablet) PO SCH (20:20)
[2021-03-18] MEDS: polyethylene glycol 3350 17gm powd pack OGT SCH (20:21)
[2021-03-19] VITALS (23 sets, daily range): BP systolic 92–149; BP diastolic 50–81
[2021-03-19] MEDS: insulin glargine (Lantus) pen - multi-dose SQ SCH ×2 (00:20→22:37)
[2021-03-19] MEDS: cefepime 1GM/NS ADD-VANTAGE 100 ML IV SCH ×3 (00:43→16:43)
[2021-03-19] MEDS: furosemide 40mg/4ml inj IV SCH ×2 (00:43→08:10)
[2021-03-19] MEDS: mineral oil/petrolatum ophthal oint EACHEYE SCH ×4 (02:00→19:14)
[2021-03-19 03:30] LABS: ABG BASE EXCESS 12.9 mmol/L (-2.0-2.0); ABG HCO3 37.7 mmol/L (22.0-26.0); ABG OXYGEN SATURATION 95.6 % (94-97); ABG PCO2 (T) 48.7 mmHg (35.0-48.0); ABG PO2 (T) 71.9 mmHg (75.0-100.0); ALLEN'S TEST POSITIVE; FCOHb 0.7 % (0.0-3.9); FO2Hb 94.9 % (94-97); PATIENT TEMPERATURE 36.5; PEEP 5 cm H2O; RESPIRATORY RATE 40 b/min; TIDAL VOLUME 450 mL; TOTAL HEMOGLOBIN 10.5 G/dl (14.0-18.0)
[2021-03-19] MEDS: acetaminophen 325mg tablet OGT PRN (03:41)
[2021-03-19] MEDS: insulin regular, human U-100 3ml vial - multi-dose SQ SCH ×2 (03:41→22:38)
[2021-03-19] MEDS: dexmedetomidine/D5W 100mL 100 ML IV SCH ×2 (05:57→16:27)
[2021-03-19 07:08] LABS: BASOPHILS # (AUTO) 0.1 X10'3 (0-0.2); BASOPHILS % (AUTO) 0.5 % (0-1); EOSINOPHILS # (AUTO) 0.4 X10'3 (0-0.9); EOSINOPHILS % (AUTO) 2.5 % (0-6); HEMATOCRIT 29.8 % (42.0-52.0); HEMOGLOBIN 9.6 g/dl (14.0-17.9); LYMPHOCYTES # (AUTO) 1.6 X10'3 (1.1-4.8); MEAN CORPUSCULAR HEMOGLOBIN 27.4 PG (27.0-31.0); MEAN CORPUSCULAR HGB CONC 32.2 g/dL (33.0-36.5); MEAN CORPUSCULAR VOLUME 85.2 FL (78-98); MEAN PLATELET VOLUME 8.3 FL (7.4-10.4); MONOCYTES # (AUTO) 0.9 X10'3 (0-0.9); MONOCYTES % (AUTO) 6.5 % (2-12); NEUTROPHILS # (AUTO) 11.2 X10'3 (1.8-7.7); NEUTROPHILS % (AUTO) 79.5 % (42-75); PLATELET COUNT 481 X10'3 (140-440); RED BLOOD COUNT 3.49 X10'6 (4.70-6.10); RED CELL DISTRIBUTION WIDTH 17.2 % (11.5-14.5); WHITE BLOOD COUNT 14.1 X10'3 (4.5-11.0)
[2021-03-19 07:41] LABS: ALANINE AMINOTRANSFERASE 79 U/L (12-78); ALBUMIN 1.7 G/DL (3.4-5.0); ALBUMIN/GLOBULIN RATIO 0.4 (1.1-1.5); ALKALINE PHOSPHATASE 122 IU/L (46-116); ANION GAP 6 (8-16); ASPARTATE AMINO TRANSFERASE 31 U/L (10-37); BILIRUBIN,TOTAL 0.3 MG/DL (0.1-1.0); BLOOD UREA NITROGEN 41 MG/DL (7-18); BUN/CREATININE RATIO 71.9 (5.4-32.0); CALCIUM 8.4 MG/DL (8.5-10.1); CHLORIDE 96 MMOL/L (99-107); CREATININE 0.57 MG/DL (0.60-1.10); GLUCOSE 114 MG/DL (70-104); MAGNESIUM 1.9 MG/DL (1.5-2.4); PHOSPHORUS 3.4 MG/DL (2.3-4.5); POTASSIUM 3.4 MMOL/L (3.5-5.1); SODIUM 140 MMOL/L (135-145); TOTAL CARBON DIOXIDE 37.7 MMOL/L (24-32); TOTAL PROTEIN 6.3 G/DL (6.4-8.2); eGFR > 90 ML/MIN
[2021-03-19] MEDS: vancomycin/NS 1 GM ADD-VANTAGE 250 ML IV SCH ×2 (08:09→19:11)
[2021-03-19] MEDS: pantoprazole 40 MG vial IV SCH (08:10)
[2021-03-19] MEDS: enoxaparin 100mg/ml syringe SUBCUT SCH ×2 (08:10→19:12)
[2021-03-19] MEDS: MULTIVIT-MIN/FERROUS GLUCONATE 9 MG/15 ML LIQUID PO SCH (08:10)
[2021-03-19] MEDS: ascorbic acid 500mg tablet PO SCH ×2 (08:11→19:13)
[2021-03-19] MEDS: lactobacillus rhamnosus 10,000 MMU CELLS/CAPSULE OGT SCH ×2 (08:11→19:11)
[2021-03-19] MEDS: metoprolol tartrate 12.5mg (1/2 tablet) PO SCH ×2 (08:11→19:14)
[2021-03-19] MEDS: zinc sulfate 220mg capsule PO SCH ×2 (08:12→19:14)
[2021-03-19] MEDS: lisinopril 5mg tablet PO SCH (08:12)
[2021-03-19] MEDS ORDERED: potassium Cl 20 mEq SR tablet PO PRN ×2 (11:40)
[2021-03-19] MEDS: K, MAG and/or Phos replacement - Verify level? MC SCH (11:47)
[2021-03-19 13:15] LABS: ANISOCYTOSIS 1+; PLATELET ESTIMATE INCREASED; POLYCHROMASIA 1+; SCHISTOCYTES FEW; TOTAL CELLS COUNTED 100
[2021-03-19 13:16] LABS: HYPOCHROMASIA 1+
[2021-03-19] MEDS: diazepam 5mg tablet PO SCH ×3 (14:51→22:05)
[2021-03-19] MEDS: spironolactone 25 MG tablet PO SCH (19:14)
[2021-03-19] MEDS: polyethylene glycol 3350 17gm powd pack OGT SCH (22:05)
[2021-03-20] VITALS (22 sets, daily range): BP systolic 104–147; BP diastolic 44–78
[2021-03-20] MEDS: cefepime 1GM/NS ADD-VANTAGE 100 ML IV SCH ×3 (00:55→15:55)
[2021-03-20] MEDS: dexmedetomidine/D5W 100mL 100 ML IV SCH ×3 (01:30→20:20)
[2021-03-20] MEDS: mineral oil/petrolatum ophthal oint EACHEYE SCH ×4 (02:30→20:34)
[2021-03-20] MEDS: insulin regular, human U-100 3ml vial - multi-dose SQ SCH (04:22)
[2021-03-20] MEDS ORDERED: VANCOMYCIN LEVEL IV ONE (05:30)
[2021-03-20 07:06] LABS: BASOPHILS # (AUTO) 0.1 X10'3 (0-0.2); BASOPHILS % (AUTO) 0.5 % (0-1); EOSINOPHILS # (AUTO) 0.3 X10'3 (0-0.9); EOSINOPHILS % (AUTO) 2.6 % (0-6); HEMATOCRIT 27.1 % (42.0-52.0); HEMOGLOBIN 8.9 g/dl (14.0-17.9); LYMPHOCYTES # (AUTO) 1.5 X10'3 (1.1-4.8); LYMPHOCYTES % (AUTO) 11.4 % (21-51); MEAN CORPUSCULAR HEMOGLOBIN 27.3 PG (27.0-31.0); MEAN CORPUSCULAR HGB CONC 32.8 g/dL (33.0-36.5); MEAN CORPUSCULAR VOLUME 83.4 FL (78-98); MEAN PLATELET VOLUME 8.1 FL (7.4-10.4); MONOCYTES # (AUTO) 0.8 X10'3 (0-0.9); MONOCYTES % (AUTO) 6.3 % (2-12); NEUTROPHILS # (AUTO) 10.2 X10'3 (1.8-7.7); NEUTROPHILS % (AUTO) 79.2 % (42-75); PLATELET COUNT 460 X10'3 (140-440); RED BLOOD COUNT 3.25 X10'6 (4.70-6.10); RED CELL DISTRIBUTION WIDTH 17.2 % (11.5-14.5); WHITE BLOOD COUNT 12.8 X10'3 (4.5-11.0)
[2021-03-20] MEDS: vancomycin/NS 1 GM ADD-VANTAGE 250 ML IV SCH (07:17)
[2021-03-20] MEDS: enoxaparin 100mg/ml syringe SUBCUT SCH ×2 (07:18→19:40)
[2021-03-20] MEDS: lactobacillus rhamnosus 10,000 MMU CELLS/CAPSULE OGT SCH ×2 (07:18→19:39)
[2021-03-20] MEDS: zinc sulfate 220mg capsule PO SCH ×2 (07:18→19:38)
[2021-03-20] MEDS: ascorbic acid 500mg tablet PO SCH ×2 (07:18→19:38)
[2021-03-20] MEDS: diazepam 5mg tablet PO SCH ×4 (07:18→23:01)
[2021-03-20] MEDS: MULTIVIT-MIN/FERROUS GLUCONATE 9 MG/15 ML LIQUID PO SCH (07:18)
[2021-03-20] MEDS: pantoprazole 40 MG vial IV SCH (07:18)
[2021-03-20] MEDS: lisinopril 5mg tablet PO SCH (07:19)
[2021-03-20] MEDS: spironolactone 25 MG tablet PO SCH ×2 (07:19→19:39)
[2021-03-20] MEDS: metoprolol tartrate 12.5mg (1/2 tablet) PO SCH ×2 (07:20→19:39)
[2021-03-20] MEDS: K, MAG and/or Phos replacement - Verify level? MC SCH (07:20)
[2021-03-20 07:28] LABS: ALANINE AMINOTRANSFERASE 86 U/L (12-78); ALBUMIN 1.5 G/DL (3.4-5.0); ALBUMIN/GLOBULIN RATIO 0.3 (1.1-1.5); ALKALINE PHOSPHATASE 115 IU/L (46-116); ANION GAP 3 (8-16); ASPARTATE AMINO TRANSFERASE 48 U/L (10-37); BILIRUBIN,TOTAL 0.2 MG/DL (0.1-1.0); BLOOD UREA NITROGEN 38 MG/DL (7-18); BUN/CREATININE RATIO 77.6 (5.4-32.0); CHLORIDE 94 MMOL/L (99-107); CREATININE 0.49 MG/DL (0.60-1.10); GLUCOSE 127 MG/DL (70-104); POTASSIUM 3.1 MMOL/L (3.5-5.1); SODIUM 136 MMOL/L (135-145); TOTAL CARBON DIOXIDE 39.2 MMOL/L (24-32); TOTAL PROTEIN 5.8 G/DL (6.4-8.2); eGFR > 90 ML/MIN
[2021-03-20 07:29] LABS: MAGNESIUM 1.9 MG/DL (1.5-2.4)
[2021-03-20 07:32] LABS: VANCOMYCIN,TROUGH 23.8 UG/ML (6.0-14.0)
[2021-03-20 09:19] LABS: ANISOCYTOSIS 1+; PLATELET ESTIMATE INCREASED; TOTAL CELLS COUNTED 100
[2021-03-20 09:20] LABS: HYPOCHROMASIA 1+; POLYCHROMASIA 1+; SCHISTOCYTES FEW
[2021-03-20] MEDS ORDERED: scopolamine 1mg/72 hr patch TD SCH (17:30)
--- NOTE | 2021-03-20 18:00 | NUR ---
Patient in room ICU 2042. I have received report from Shawn and had the opportunity to ask questions and assume patient care.
[2021-03-20] MEDS: vancomycin inj. 750 MG in normal saline 250ml IV soln 250 ML IV SCH (19:40)
[2021-03-20] MEDS: polyethylene glycol 3350 17gm powd pack OGT SCH (20:42)
[2021-03-20] MEDS: insulin glargine (Lantus) pen - multi-dose SQ SCH (21:00)
[2021-03-21] VITALS (23 sets, daily range): BP systolic 126–197; BP diastolic 56–92
[2021-03-21] MEDS: cefepime 1GM/NS ADD-VANTAGE 100 ML IV SCH ×3 (02:49→16:35)
[2021-03-21] MEDS: mineral oil/petrolatum ophthal oint EACHEYE SCH ×4 (02:51→19:58)
--- NOTE | 2021-03-21 06:21 | NUR ---
Problems reprioritized. Patient report given, questions answered & plan of care reviewed with Oral.
[2021-03-21 06:38] LABS: ALANINE AMINOTRANSFERASE 89 U/L (12-78); ALBUMIN 1.6 G/DL (3.4-5.0); ALBUMIN/GLOBULIN RATIO 0.4 (1.1-1.5); ALKALINE PHOSPHATASE 119 IU/L (46-116); ANION GAP 1 (8-16); ASPARTATE AMINO TRANSFERASE 47 U/L (10-37); BILIRUBIN,TOTAL 0.2 MG/DL (0.1-1.0); BLOOD UREA NITROGEN 24 MG/DL (7-18); CALCIUM 8.3 MG/DL (8.5-10.1); CHLORIDE 98 MMOL/L (99-107); CREATININE 0.49 MG/DL (0.60-1.10); GLUCOSE 115 MG/DL (70-104); MAGNESIUM 2.1 MG/DL (1.5-2.4); PHOSPHORUS 2.8 MG/DL (2.3-4.5); POTASSIUM 4.3 MMOL/L (3.5-5.1); SODIUM 138 MMOL/L (135-145); TOTAL CARBON DIOXIDE 38.7 MMOL/L (24-32); TRIGLYCERIDES 78 MG/DL (20-135); eGFR > 90 ML/MIN
[2021-03-21] MEDS: dexmedetomidine/D5W 100mL 100 ML IV SCH (06:50)
[2021-03-21] MEDS: vancomycin inj. 750 MG in normal saline 250ml IV soln 250 ML IV SCH ×2 (07:40→19:17)
[2021-03-21] MEDS: pantoprazole 40 MG vial IV SCH (07:48)
[2021-03-21] MEDS: MULTIVIT-MIN/FERROUS GLUCONATE 9 MG/15 ML LIQUID PO SCH (07:49)
[2021-03-21] MEDS: lactobacillus rhamnosus 10,000 MMU CELLS/CAPSULE OGT SCH ×2 (07:49→19:57)
[2021-03-21] MEDS: metoprolol tartrate 12.5mg (1/2 tablet) PO SCH (07:49)
[2021-03-21] MEDS: enoxaparin 100mg/ml syringe SUBCUT SCH ×2 (07:49→19:56)
[2021-03-21] MEDS: diazepam 5mg tablet PO SCH (07:49)
[2021-03-21] MEDS: zinc sulfate 220mg capsule PO SCH ×2 (07:49→19:56)
[2021-03-21] MEDS: spironolactone 25 MG tablet PO SCH (07:50)
[2021-03-21] MEDS: lisinopril 5mg tablet PO SCH (07:50)
[2021-03-21] MEDS: K, MAG and/or Phos replacement - Verify level? MC SCH (07:51)
[2021-03-21] MEDS: ascorbic acid 500mg tablet PO SCH (07:52)
[2021-03-21] MEDS ORDERED: lisinopril 5mg tablet OGT SCH (08:32)
[2021-03-21] MEDS ORDERED: MULTIVIT-MIN/FERROUS GLUCONATE 9 MG/15 ML LIQUID OGT SCH (08:33)
[2021-03-21] MEDS ORDERED: potassium Cl 20 mEq SR tablet OGT PRN ×2 (08:33)
[2021-03-21 09:18] LABS: BASOPHILS # (AUTO) 0.1 X10'3 (0-0.2); BASOPHILS % (AUTO) 0.4 % (0-1); EOSINOPHILS # (AUTO) 0.4 X10'3 (0-0.9); EOSINOPHILS % (AUTO) 2.7 % (0-6); HEMATOCRIT 28.4 % (42.0-52.0); HEMOGLOBIN 9.1 g/dl (14.0-17.9); LYMPHOCYTES # (AUTO) 1.4 X10'3 (1.1-4.8); LYMPHOCYTES % (AUTO) 10.4 % (21-51); MEAN CORPUSCULAR HEMOGLOBIN 27.4 PG (27.0-31.0); MEAN CORPUSCULAR HGB CONC 31.9 g/dL (33.0-36.5); MEAN CORPUSCULAR VOLUME 85.9 FL (78-98); MEAN PLATELET VOLUME 7.8 FL (7.4-10.4); MONOCYTES # (AUTO) 1.1 X10'3 (0-0.9); MONOCYTES % (AUTO) 8.3 % (2-12); NEUTROPHILS # (AUTO) 10.5 X10'3 (1.8-7.7); NEUTROPHILS % (AUTO) 78.2 % (42-75); PLATELET COUNT 490 X10'3 (140-440); RED BLOOD COUNT 3.31 X10'6 (4.70-6.10); RED CELL DISTRIBUTION WIDTH 17.2 % (11.5-14.5); WHITE BLOOD COUNT 13.4 X10'3 (4.5-11.0)
[2021-03-21] MEDS: insulin regular, human U-100 3ml vial - multi-dose SQ SCH ×3 (10:26→22:03)
--- NOTE | 2021-03-21 11:18 | NUR ---
F/u 03/21: Pt remains ventilated though off sedation. TF currently running Vital AF at goal of 85ml/hr. Pt documented to be having daily small stools receiving routine miralax. Will continue to monitor for TF tolerance and adjustment needs as medically indicated. Rec: 1) Continuous Vital AF with goal rate of 85 mL/hr to provide 2040 mL total volume/day, 2448 kcal, 153 g protein, and 1654 mL water 2) Additional water per [employer] Circulation Assistant given BUE 4+/BLE 3+ edema 3) Prealbumin q Sunday/; daily scaled weights 4) bowel care per rx Addendum: 03/21/21 at [address] Amended: Links added.
[2021-03-21 11:30] LABS: TOTAL CELLS COUNTED 100
[2021-03-21 11:31] LABS: ANISOCYTOSIS 1+; ELLIPTOCYTES FEW; HYPOCHROMASIA 1+; PLATELET ESTIMATE INCREASED; STOMATOCYTES 1+
[2021-03-21 11:32] LABS: POLYCHROMASIA FEW; SCHISTOCYTES FEW
[2021-03-21] MEDS: diazepam 5mg tablet OGT SCH ×3 (13:03→19:57)
[2021-03-21] MEDS: hydrALAZINE 20mg/ml inj. IV PRN (15:06)
[2021-03-21] MEDS: spironolactone 25 MG tablet OGT SCH (19:56)
[2021-03-21] MEDS: ascorbic acid 500mg tablet OGT SCH (19:57)
[2021-03-21] MEDS: metoprolol tartrate 12.5mg (1/2 tablet) OGT SCH (19:57)
[2021-03-21] MEDS: polyethylene glycol 3350 17gm powd pack OGT SCH (19:58)
[2021-03-21] MEDS: insulin glargine (Lantus) pen - multi-dose SQ SCH (21:00)
[2021-03-22] VITALS (17 sets, daily range): BP systolic 118–157; BP diastolic 55–70
[2021-03-22] MEDS: cefepime 1GM/NS ADD-VANTAGE 100 ML IV SCH ×3 (00:07→16:10)
[2021-03-22] MEDS: mineral oil/petrolatum ophthal oint EACHEYE SCH ×3 (02:00→14:05)
[2021-03-22] MEDS ORDERED: VANCOMYCIN LEVEL IV ONE (06:30)
[2021-03-22] MEDS: vancomycin inj. 750 MG in normal saline 250ml IV soln 250 ML IV SCH (07:35)
[2021-03-22 07:59] LABS: BASOPHILS # (AUTO) 0.1 X10'3 (0-0.2); BASOPHILS % (AUTO) 0.7 % (0-1); EOSINOPHILS # (AUTO) 0.4 X10'3 (0-0.9); EOSINOPHILS % (AUTO) 3.2 % (0-6); HEMATOCRIT 27.6 % (42.0-52.0); HEMOGLOBIN 8.8 g/dl (14.0-17.9); LYMPHOCYTES # (AUTO) 1.2 X10'3 (1.1-4.8); LYMPHOCYTES % (AUTO) 11.1 % (21-51); MEAN CORPUSCULAR HEMOGLOBIN 27.3 PG (27.0-31.0); MEAN CORPUSCULAR HGB CONC 31.8 g/dL (33.0-36.5); MEAN CORPUSCULAR VOLUME 85.8 FL (78-98); MEAN PLATELET VOLUME 7.7 FL (7.4-10.4); MONOCYTES % (AUTO) 8.7 % (2-12); NEUTROPHILS # (AUTO) 8.5 X10'3 (1.8-7.7); NEUTROPHILS % (AUTO) 76.3 % (42-75); PLATELET COUNT 474 X10'3 (140-440); RED BLOOD COUNT 3.22 X10'6 (4.70-6.10); RED CELL DISTRIBUTION WIDTH 17.1 % (11.5-14.5); WHITE BLOOD COUNT 11.2 X10'3 (4.5-11.0)
[2021-03-22] MEDS: K, MAG and/or Phos replacement - Verify level? MC SCH (08:00)
[2021-03-22 08:16] LABS: ALANINE AMINOTRANSFERASE 98 U/L (12-78); ALBUMIN 1.5 G/DL (3.4-5.0); ALBUMIN/GLOBULIN RATIO 0.4 (1.1-1.5); ALKALINE PHOSPHATASE 100 IU/L (46-116); ANION GAP 2 (8-16); ASPARTATE AMINO TRANSFERASE 44 U/L (10-37); BILIRUBIN,TOTAL 0.2 MG/DL (0.1-1.0); BLOOD UREA NITROGEN 25 MG/DL (7-18); BUN/CREATININE RATIO 67.6 (5.4-32.0); CALCIUM 8.5 MG/DL (8.5-10.1); CHLORIDE 99 MMOL/L (99-107); CREATININE 0.37 MG/DL (0.60-1.10); GLUCOSE 126 MG/DL (70-104); POTASSIUM 4.3 MMOL/L (3.5-5.1); SODIUM 137 MMOL/L (135-145); TOTAL CARBON DIOXIDE 35.7 MMOL/L (24-32); TOTAL PROTEIN 5.7 G/DL (6.4-8.2); eGFR > 90 ML/MIN
[2021-03-22] MEDS: enoxaparin 100mg/ml syringe SUBCUT SCH (08:30)
[2021-03-22] MEDS: lactobacillus rhamnosus 10,000 MMU CELLS/CAPSULE OGT SCH (08:30)
[2021-03-22] MEDS: diazepam 5mg tablet OGT SCH ×3 (08:30→16:43)
[2021-03-22] MEDS: zinc sulfate 220mg capsule PO SCH (08:30)
[2021-03-22] MEDS: pantoprazole 40 MG vial IV SCH (08:30)
[2021-03-22] MEDS: ascorbic acid 500mg tablet OGT SCH (08:31)
[2021-03-22] MEDS: spironolactone 25 MG tablet OGT SCH (08:31)
[2021-03-22] MEDS: metoprolol tartrate 12.5mg (1/2 tablet) OGT SCH (08:32)
[2021-03-22] MEDS: insulin regular, human U-100 3ml vial - multi-dose SQ SCH ×2 (09:45→14:52)
[2021-03-22 09:55] LABS: TOTAL CELLS COUNTED 100
[2021-03-22 09:56] LABS: ANISOCYTOSIS 1+; LARGE PLATELETS FEW; PLATELET ESTIMATE INCREASED
[2021-03-22 09:58] LABS: MICROCYTOSIS 1+; POLYCHROMASIA FEW; SCHISTOCYTES FEW
[2021-03-22] MEDS ORDERED: cholecalciferol (vitamin D3) 1,000 unit (25mcg) tablet PO SCH (11:10)
== END 2021-03-22 16:00 | DRG 4 ==
LOC: ER 18:47 → EDBD 18:47 → ED HOLD 23:14 → COVID IP 02-11 13:46 → CICU 2S 02-13 13:22 → ICU 2S 03-09 10:01
PROVIDERS: ADMIT Internal Medicine; ATTEND Internal Medicine
PROC: XW033E5 Introduction of Remdesivir Anti-infective into Peripheral Vein, Percutaneous Approach, New Technology Group 5 (ICD-10-PCS; principal; 2021-02-10)
PROC: B32T1ZZ Computerized Tomography (CT Scan) of Left Pulmonary Artery using Low Osmolar Contrast (ICD-10-PCS; 2021-02-10)
PROC: B3201ZZ Computerized Tomography (CT Scan) of Thoracic Aorta using Low Osmolar Contrast (ICD-10-PCS; 2021-02-10)
PROC: B32S1ZZ Computerized Tomography (CT Scan) of Right Pulmonary Artery using Low Osmolar Contrast (ICD-10-PCS; 2021-02-10)
PROC: 5A0935A Assistance with Respiratory Ventilation, Less than 24 Consecutive Hours, High Flow/Velocity Cannula (ICD-10-PCS; 2021-02-11)
PROC: 5A09457 Assistance with Respiratory Ventilation, 24-96 Consecutive Hours, Continuous Positive Airway Pressure (ICD-10-PCS; 2021-02-11)
PROC: 02HV33Z Insertion of Infusion Device into Superior Vena Cava, Percutaneous Approach (ICD-10-PCS; 2021-02-14)
PROC: B548ZZA Ultrasonography of Superior Vena Cava, Guidance (ICD-10-PCS; 2021-02-14)
PROC: 5A1955Z Respiratory Ventilation, Greater than 96 Consecutive Hours (ICD-10-PCS; 2021-02-15)
PROC: 0BH17EZ Insertion of Endotracheal Airway into Trachea, Via Natural or Artificial Opening (ICD-10-PCS; 2021-02-15)
PROC: 0W9930Z Drainage of Right Pleural Cavity with Drainage Device, Percutaneous Approach (ICD-10-PCS; 2021-02-15)
PROC: 0B113F4 Bypass Trachea to Cutaneous with Tracheostomy Device, Percutaneous Approach (ICD-10-PCS; 2021-03-08)
PROC: 0BJ08ZZ Inspection of Tracheobronchial Tree, Via Natural or Artificial Opening Endoscopic (ICD-10-PCS; 2021-03-08)
PROC: 0DH63UZ Insertion of Feeding Device into Stomach, Percutaneous Approach (ICD-10-PCS; 2021-03-08)
DX: U07.1 COVID-19 (principal); J12.82 Pneumonia due to coronavirus disease 2019; J80 Acute respiratory distress syndrome; A41.9 Sepsis, unspecified organism; E87.1 Hypo-osmolality and hyponatremia; R57.9 Shock, unspecified; G93.40 Encephalopathy, unspecified; Z99.11 Dependence on respirator [ventilator] status; J90 Pleural effusion, not elsewhere classified; J93.83 Other pneumothorax; J93.82 Other air leak; E87.2 Acidosis; R73.9 Hyperglycemia, unspecified; I10 Essential (primary) hypertension; R00.1 Bradycardia, unspecified; R74.01 Elevation of levels of liver transaminase levels; E87.5 Hyperkalemia; R31.9 Hematuria, unspecified; J98.2 Interstitial emphysema
CPT/HCPCS: 36415; 36573; 36600; 43246; 70551; 71045; 71046; 71275; 76604; 76700; 76937; 80048; 80053; 80202; 82728; 82803; 82948; 83605; 83615; 83735; 83880; 84100; 84132; 84134; 84145; 84478; 85007; 85018; 85025; 85379; 85384; 85610; 85730; 86140; 87040; 87070; 87077; 87081; 87186; 87635; 93005; 93308; 93970; 94002; 94003; 94660; 94760; 94799; 96365; 97110; 97161; 97164; 97530; 97535; 99285; B4087; C9113; C9803; G0378; J0360; J0461; J0692; J1100; J1120; J1170; J1265; J1644; J1650; J1815; J1940; J1956; J2060; J2250; J2270; J2704; J2920; J3010; J3370; J3480; J7030; J7050; J7060; Q9967

== ENCOUNTER → 2021-05-03 | Outpatient (CLI) | payer MEDICARE ==
[~2021-05-03] MED LIST changes: +GADOTERATE MEGLUMINE 7.5 MMOL/15 ML VIAL IV ONE; +LOSA1TAB41 PO; -atropine 0.1mg/ml 10ml syringe ONE; -etomidate 2mg/ml inj. ONE; -rocuronium 10mg/ml inj IV ONE; -sod chloride 0.9% 10ml flush syringe IV ONE
== END | disposition home or self-care (01) ==
LOC: RAD 10:16
PROVIDERS: ATTEND Internal Medicine
DX: K57.30 Diverticulosis of large intestine without perforation or abscess without bleeding (principal); M62.50 Muscle wasting and atrophy, not elsewhere classified, unspecified site; R60.9 Edema, unspecified
CPT/HCPCS: 72197; A9575